=== PATIENT | female | born 1955 | race Caucasian/White ===

== ENCOUNTER → 2017-04-03 | Outpatient (CLI) | payer OTHER ==
[~2017-04-03] MED LIST: AMLO2.5T PO; ASPI81TA28 PO; ATOR-22 PO; CYCL10TA6 PO; HYG/25 PO; INSDGIPEN SC; LEVO50TA6 PO; LISI40TA PO; METF-384 PO; NAPR-1169 PO; NVLGI/PEN SQ; RXC5 PO
[2017-04-03 13:09] LABS: URINE APPEARANCE CLEAR (CLEAR); URINE BILIRUBIN NEG (NEG); URINE COLOR YELLOW; URINE EPITHELIAL CELL AUTO >30 /lpf (0-5); URINE NITRITE NEG (NEG); URINE PH 6.5 (4.5-7.5); URINE SPECIFIC GRAVITY 1.017 (1.000-1.030); UROBILINOGEN NEG (NEG)
[2017-04-03 13:13] LABS: MANUAL MICROSCOPIC REQUIRED? NO; REVIEW REQ? NO
== END | disposition home or self-care (01) ==
LOC: C.LABMFLN 07:15
PROVIDERS: ATTEND Family Medicine
DX: N30.00 Acute cystitis without hematuria (principal)

== ENCOUNTER → 2017-04-07 | Outpatient (CLI) | payer OTHER ==
[2017-04-07 14:05] LABS: ALT/SGPT 17 U/L (12-78); CHOLESTEROL 160 mg/dl (0-200); CHOLESTEROL/HDL RATIO 2.7; HDL CHOLESTEROL 60 mg/dl; TRIGLYCERIDES 136 mg/dl (0-150); VERY LOW DENSITY LIPOPROT CALC 27 mg/dl
[2017-04-08 06:21] LABS: ESTIMATED AVERAGE GLUCOSE 280 mg/dl; HA1C FLAG Normal (Normal)
== END | disposition home or self-care (01) ==
LOC: C.LABMFLN 07:05
PROVIDERS: ATTEND Family Medicine
DX: Z00.00 Encounter for general adult medical examination without abnormal findings (principal); E11.9 Type 2 diabetes mellitus without complications; E78.5 Hyperlipidemia, unspecified; I10 Essential (primary) hypertension

== ENCOUNTER 2017-04-11 08:51 | Inpatient (IN) | payer OTHER ==
[2017-03-25 14:50] VITALS: BMI 46.0
--- NOTE | 2017-03-25 15:32 | PAT Medication Instructions ---
Service Date Mar 25, 2017. Current Home Medication List Amlodipine (Norvasc), 2.5 MG PO QAM Aspirin (Aspirin Ec), 81 MG PO QAM Atorvastatin (Lipitor), 20 MG PO HS Chlorthalidone (Hygroton), 25 MG PO QAM Cyclobenzaprine Hcl (Flexeril), 10 MG PO BID PRN for Muscle Spasms Insulin Aspart (Novolog Flexpen), 35 UNITS SQ TIDM Insulin Glargine (Lantus Solostar), 30-40 UNITS SC QPM Levothyroxine Sodium (Levothyroxine Sodium), 1 TAB PO QAM Lisinopril (Zestril), 40 MG PO BID Metformin Hcl (Glucophage), 1,000 MG PO BID Naproxen (Naprosyn), 500 MG PO BID PRN for Pain Medication Instructions For Your Scheduled Surgery - Check with surgeon for instructions: Naproxen (Naprosyn), 500 MG PO BID PRN for Pain - Hold the following medications 24 hours prior to surgery: Lisinopril (Zestril), 40 MG PO BID - Hold the following medications 48 hours prior to surgery: Metformin Hcl (Glucophage), 1,000 MG PO BID - Hold the following medications the morning of surgery: Chlorthalidone (Hygroton), 25 MG PO QAM Cyclobenzaprine Hcl (Flexeril), 10 MG PO BID PRN for Muscle Spasms Insulin Aspart (Novolog Flexpen), 35 UNITS SQ TIDM - Take the following medications the morning of surgery with a sip of water: Levothyroxine Sodium (Levothyroxine Sodium), 1 TAB PO QAM Amlodipine (Norvasc), 2.5 MG PO QAM Aspirin (Aspirin Ec), 81 MG PO QAM (okay to continue per surgeon) - Take the following medications as scheduled the night before surgery: Insulin Glargine (Lantus Solostar), 30-40 UNITS SC QPM Insulin Aspart (Novolog Flexpen), 35 UNITS SQ TIDM Cyclobenzaprine Hcl (Flexeril), 10 MG PO BID PRN for Muscle Spasms (if needed) Atorvastatin (Lipitor), 20 MG PO HS If you have any questions please call us at [phone] or [phone] or [phone]
[2017-03-25 15:39] LABS: BASO % 0.7 %; BASO ABS # 0.06 K/uL (0-0.2); COMPLETE YES; EOS % 1.3 %; HEMATOCRIT 38.6 % (37-47); IG% 1.1 %; LYMPH % 23.8 %; LYMPH ABS # 2.12 K/uL (1.2-3.4); MEAN CELL VOLUME 85.8 fL (80-100); MEAN CORPUSCULAR HEMOGLOBIN 29.1 pg (25-34); MEAN CORPUSCULAR HGB CONC 33.9 g/dl (32-36); MEAN PLATELET VOLUME 11.3 fL (7.4-10.4); MONO % 5.3 %; NEUT % 67.8 %; PLATELET COUNT 279 K/uL (130-400)
--- NOTE | 2017-03-25 16:00 | DIAGNOSTIC IMAGING REPORT ---
CHEST PREADMISSION(PA/LAT) CLINICAL HISTORY: PAT preoperative evaluation COMPARISON STUDY: No previous studies for comparison. FINDINGS: The bones soft tissues and hemidiaphragms are normal. The cardiomediastinal silhouette is normal. The lungs are clear. The pulmonary vasculature is normal. IMPRESSION: Negative chest. The above report was generated using voice recognition software. It may contain grammatical, syntax or spelling errors. Electronically signed by: Nolan Herrera M.D. 03/25/2017 3:59 PM Dictated Date/Time: 03/25/2017 3:58 PM
[2017-03-25 16:19] LABS: URINE APPEARANCE CLEAR (CLEAR); URINE BILIRUBIN NEG (NEG); URINE COLOR YELLOW; URINE EPITHELIAL CELL AUTO 20-30 /lpf (0-5); URINE NITRITE NEG (NEG); URINE SPECIFIC GRAVITY 1.012 (1.000-1.030); UROBILINOGEN NEG (NEG); ZZUR CULT IF INDIC CLEAN CATCH YES
[2017-03-25 16:20] LABS: BUN/CREATININE RATIO 20.1 (10-20); CALCIUM 9.3 mg/dl (8.5-10.1); POTASSIUM 4.9 mmol/L (3.5-5.1)
[2017-03-25 16:21] LABS: MANUAL MICROSCOPIC REQUIRED? NO; REVIEW REQ? NO
[~2017-04-11] VITALS: Ht 170.2 cm; Wt 122.4 kg
[2017-04-11] VITALS (8 sets, daily range): BP systolic 129–169; BP diastolic 60–82; PULSE 84–99; TEMP 36.3–36.8; O2SAT 92–99; BMI 42.0
[~2017-04-11 08:51] MED LIST changes: +CEFAZOLIN 3000 MG/65 ML D5W 65 ML IV SCH; +LACTATED RINGER'S 1000ML 1,000 ML IV SCH; -RXC5 PO
[2017-04-11] MEDS ORDERED: ATROPINE SULFATE 0.1 MG/ML 5ML SYR IV PRN (09:45)
[2017-04-11] MEDS ORDERED: FENTANYL CITRATE INJ 50 MCG/1 ML 2 ML VIAL IV PRN (09:45)
[2017-04-11] MEDS ORDERED: HYDROmorphone INJ 1 MG/ML SYR IV PRN ×2 (09:45→15:45)
[2017-04-11] MEDS ORDERED: EpHEDrine SULFATE INJ 50 MG/ML AMP IV PRN (09:45)
[2017-04-11] MEDS ORDERED: ONDANSETRON INJ 2 MG/ML 2 ML VIAL IV PRN ×2 (09:45→15:45)
[2017-04-11] MEDS ORDERED: PROMETHAZINE HCL INJ 12.5 MG in SODIUM CHLORIDE 0.9% 50ML 50 ML IV PRN ×2 (09:45→15:45)
--- NOTE | 2017-04-11 11:54 | History & Physical Bridge Note ---
H&P Re-Evaluation Bridge Note: I have examined the patient, reviewed the History & Physical and in the interval since the performance of the History & Physical I have noted the following changes of clinical significance: No changes noted
--- NOTE | 2017-04-11 11:55 | History and Physical ---
History & Physical Date Apr 11, 2017. Chief Complaint Back and leg pain History of Present Illness The patient is a 61 year old female with complaints of back and leg pain Additional History Hepatic Disease: No Endocrine Disorder: No Kidney Disease: No Hypertension: Yes Heart Disease: No Bleeding Tendencies: No Infectious Diseases: No Allergies Coded Allergies: Codeine (Verified Allergy, Unknown, SEVERE NAUSEA, VOMITING, "ROOM SPINS" , 04/11/17) Home Medications Scheduled Amlodipine (Norvasc), 2.5 MG PO QAM Aspirin (Aspirin Ec), 81 MG PO QAM Atorvastatin (Lipitor), 20 MG PO HS Chlorthalidone (Hygroton), 25 MG PO QAM Insulin Aspart (Novolog Flexpen), 35 UNITS SQ TIDM Insulin Glargine (Lantus Solostar), 30-40 UNITS SC QPM Levothyroxine Sodium (Levothyroxine Sodium), 1 TAB PO QAM Lisinopril (Zestril), 40 MG PO BID Metformin Hcl (Glucophage), 1,000 MG PO BID Scheduled PRN Cyclobenzaprine Hcl (Flexeril), 10 MG PO BID PRN for Muscle Spasms Naproxen (Naprosyn), 500 MG PO BID PRN for Pain Physical Examination Skin: warm/dry, no rash Eyes: normal inspection, EOMI, sclerae normal ENT: normal ENT inspection, pharynx normal Head: normocephalic, atraumatic Neck: supple, no adenopathy, trachea midline Respiratory/Chest: lungs clear, normal breath sounds, no respiratory distress Cardiovascular: regular rate, rhythm, no edema, no murmur Abdomen / GI: normal bowel sounds, non tender Back: normal inspection Extremities: normal inspection, normal range of motion Neurologic/Psych: no motor/sensory deficits, alert, normal reflexes, oriented x 3 Diagnosis Lumbar spinal stenosis Plan of Treatment Lumbar decompression fusion L4 to S1
[2017-04-11] MEDS ORDERED: MIDAZOLAM HCL 1 MG/ML 2ML VIAL ONE (12:01)
[2017-04-11] MEDS ORDERED: FENTANYL CITRATE INJ 50 MCG/1 ML 2 ML VIAL ONE ×4 (12:01→16:14)
[2017-04-11] MEDS ORDERED: BUPIVACAINE/EPINEPHRINE 0.5% MPF 1:200,000 30 ML VIAL ONE (13:04)
[2017-04-11] MEDS ORDERED: BACITRACIN 50000 UNIT VIAL ONE (13:04)
[2017-04-11] MEDS ORDERED: HYDROmorphone INJ 2 MG/ML SYR/VIAL ONE (13:42)
[2017-04-11] MEDS ORDERED: ONDANSETRON INJ 2 MG/ML 2 ML VIAL ONE (13:55)
[2017-04-11] MEDS ORDERED: DEXAMETHASONE SOD INJ 4 MG/ML VIAL ONE (13:55)
[2017-04-11] MEDS ORDERED: LIDOCAINE HCL 2% 2 ML VIAL (20MG/ML) ONE (13:55)
[2017-04-11] MEDS ORDERED: PROPOFOL IV EMULSION 10 MG/ML 20 ML VIAL IV ONE (13:55)
[2017-04-11] MEDS ORDERED: EpHEDrine SULFATE 50MG/5ML SYR ONE (14:33)
[2017-04-11] MEDS ORDERED: PHENYLEPHRINE 100MCG/ML 5ML SYR ONE (14:33)
[2017-04-11] MEDS ORDERED: ESMOLOL HCL 10 MG/ML 10 ML VIAL ONE (14:52)
[2017-04-11] MEDS ORDERED: FLOSEAL HEMOSTATIC MATRIX 10ML TOP ONE (15:34)
[2017-04-11] MEDS ORDERED: SODIUM CHLORIDE 0.9% 1000ML 1,000 ML IV SCH (15:37)
--- NOTE | 2017-04-11 15:42 | DIAGNOSTIC IMAGING REPORT ---
LUMBAR SPINE, INTRAOPERATIVE FLUOROSCOPY HISTORY: L4-S1 decompression and fusion. FLUOROSCOPY TIME: 17 seconds. FINDINGS: Intraoperative fluoroscopy was provided for the lumbar spine. 2 fluoroscopic spot images were obtained. Posterior decompression and fusion from L4 through S1 with pedicle screws and rods. The hardware appears intact. IMPRESSION: Fluoroscopy provided for a L4 S1 posterior decompression and fusion. Electronically signed by: Alan Barnhart M.D. 04/11/2017 3:40 PM Dictated Date/Time: 04/11/2017 3:40 PM
[2017-04-11] MEDS ORDERED: METOCLOPRAMIDE HCL INJ 5 MG/ML 2 ML VIAL IV PRN (15:45)
[2017-04-11] MEDS ORDERED: LORAZEPAM 0.5 MG TAB PO PRN (15:45)
[2017-04-11] MEDS ORDERED: SOD PHOSPHATE/SOD BIPHOSPHATE ENEMA 132 ML BTL PR PRN (15:45)
[2017-04-11] MEDS ORDERED: NALOXONE HCL 0.4 MG/1 ML VIAL/CARP IV PRN ×2 (15:45)
[2017-04-11] MEDS ORDERED: ACETAMINOPHEN 500 MG TAB PO PRN (15:45)
[2017-04-11] MEDS ORDERED: MAGNESIUM HYDROXIDE SUSP 30 ML UDC PO PRN (15:45)
[2017-04-11] MEDS ORDERED: ACETAMINOPHEN IV 100 ML IV PRN (15:45)
[2017-04-11] MEDS ORDERED: LORAZEPAM INJ 0.5 MG in SYRINGE 0 ML IV PRN (15:45)
[2017-04-11] MEDS ORDERED: CYCLOBENZAPRINE HCL 10 MG TAB PO PRN (15:45)
[2017-04-11] MEDS ORDERED: DO NOT ADMINISTER FLU VACCINE PRN ×3 (15:45)
[2017-04-11] MEDS ORDERED: DO NOT ADMINISTER PNEUMOCOCCAL VACCINE PRN ×2 (15:45)
[2017-04-11] MEDS ORDERED: BISACODYL 10 MG SUPP PR PRN (15:45)
[2017-04-11] MEDS ORDERED: ALUMINUM/MAGNESIUM SUSP 30 ML UDC PO PRN (15:45)
[2017-04-11] MEDS ORDERED: hydrOXYzine HCL 25 MG TAB PO PRN (15:45)
[2017-04-11] MEDS ORDERED: FAMOTIDINE 20 MG TAB PO PRN (15:45)
--- NOTE | 2017-04-11 15:45 | [facility] Operative Report ---
Operative Report Operative Date Apr 11, 2017. Pre-Operative Diagnosis Lumbar Spinal Stenosis Post-Operative Diagnosis Lumbar Spinal Stenosis Procedure(s) Performed #1 lumbar decompression medial facetectomies foraminotomies L3 4 L4 5 L5-S1. #2 posterior spinal fusion L4 5 L5-S1. #3 placement posterior segmental instrumentation L4 5 L5-S1. #4 interbody fusion L4 5. #5 placement peek cage 12 x 26 mm L4 5. #6 placement of locally harvested morcellized autograft in the posterior lateral gutters. #7 placement of ostial amp in the interbody space and posterior gutters. Surgeon Medical Office Receptionist Assistant Surgeon(s) Ken Dent PA-C Estimated Blood Loss 200mL Findings Inferior spinal stenosis with herniated was pulposus L4 5 Specimens None per surgeon Description of Procedure Patient was met with preoperatively case discussed all questions are dressed with a point patient was taken back to the operative suite underwent intubation placed in a prone position the Iván table on top Eris frame. All bony prominences were well-padded eyes inspected to ensure there is no external pressure placed upon them. This point lumbar spines prepped draped nostril fashion. Sharp dissection with the assistance of Bovie cautery was performed onto an exposing the lamina and transverse processes of L4 5 and sacral alar bilaterally. From a caudal to cephalad fashion complete laminectomy of L5 L4 L3 was performed addressing severe lateral recessed foraminal disease. Pedicle screws then placed in L45 S1 levels bilaterally with assistance of fluoroscopy in the purposes shelly placed. Through a trans-foraminal approach a right a complete discectomy was performed as well as the herniated portion of the disc addressed. The end plates curetted to subcortical bleeding bone and a 12 x 26 mm peek cage tapped in position. The rods and locked and final position bilaterally. Transverse processes of L4-L5 and sacral alar burred to subcortical bleeding bone. Ostial amp and locally harvested morcellized autograft was placed and posterior gutters. 15 round MANISH drain inserted. Incision was then closed with 1 Vicryl fascia 2-0 Vicryl subcutaneous tediously 4 Monocryl for final skin closure Steri-Strip sterile dressing placed. Patient we can take PACU stable condition. Please note Donald record was present throughout the entire procedure involved in patient positioning complex portions of the surgery and final skin closure. I attest to the content of the Intraoperative Record and any orders documented therein. Any exceptions are noted below.
[2017-04-11] MEDS ORDERED: PHARMACY GLYCEMIC MGMT CONSULT PRN (15:49)
[2017-04-11] MEDS: HYDROmorphone HCL 0.5MG/ML 50 ML CASSETTE IV PRN ×3 (16:20→22:53)
[2017-04-11] MEDS ORDERED: SCOPOLAMINE 1.5 MG TDSY TD ONE (16:55)
[2017-04-11] MEDS ORDERED: NURSING VERBAL MED ORDER ONE ×2 (17:00)
[2017-04-11] MEDS ORDERED: SCOPOLAMINE 1.5 MG TDSY TD STA (17:07)
--- NOTE | 2017-04-11 17:19 | Anesthesiology Progress Note ---
Anesthesia Post Op Note Date & Time Apr 11, 2017 at 17:19 Vital Signs Pain Intensity: 4 Vital Signs Past 12 Hours Date Time Temp Pulse Resp B/P (MAP) Pulse Ox O2 Delivery O2 Flow Rate FiO2 04/11/17 17:10 36.6 75 12 125/65 98 Nasal Cannula 4 04/11/17 17:00 72 14 133/60 98 Nasal Cannula 4 04/11/17 16:50 77 10 104/69 99 Nasal Cannula 4 04/11/17 16:40 73 13 160/52 99 Nasal Cannula 4 04/11/17 16:30 107 21 92/65 98 Nasal Cannula 4 04/11/17 16:20 117 23 115/97 99 Nasal Cannula 4 04/11/17 16:10 92 15 182/72 99 Nasal Cannula 4 04/11/17 16:01 37.0 94 12 198/86 92 Oxymask 10 04/11/17 09:28 36.3 90 16 169/82 97 Room Air Notes Mental Status: alert / awake / arousable, participated in evaluation Pt Amnestic to Procedure: Yes Nausea / Vomiting: adequately controlled Pain: adequately controlled Airway Patency, RR, SpO2: stable & adequate BP & HR: stable & adequate Hydration State: stable & adequate Anesthetic Complications: no major complications apparent Pt doing better with n/v after zofran, phenergan, reglan and scopolamine patch. VSS
[2017-04-11] MEDS ORDERED: GLUCAGON FOR INJ 1 MG VIAL SQ PRN (17:30)
[2017-04-11] MEDS ORDERED: DEXTROSE 50% 50 ML SYR IV PRN (17:30)
[2017-04-11] MEDS ORDERED: GLUCOSE 40% GEL 15 GM TUBE PO PRN (17:30)
[2017-04-11] MEDS ORDERED: GLUCOSE 10 TABS/TUBE PO PRN (17:30)
[2017-04-11] MEDS ORDERED: INSULIN GLARGINE SOLOSTAR 100 UNITS/ML 3 ML PEN SC ONE (18:00)
[2017-04-11] MEDS: SODIUM CHLORIDE 0.9% 1000ML 1,000 ML IV SCH ×2 (19:02→21:39)
[2017-04-11] MEDS: DEXAMETHASONE INJ 6 MG in SYRINGE 0 ML IV SCH (19:03)
[2017-04-11] MEDS: CEFAZOLIN IV 2,000 MG in DEXTROSE 5% 50ML 50 ML IV SCH (19:03)
--- NOTE | 2017-04-11 19:46 | Medical Consult ---
Consultation Date of Consultation: Apr 11, 2017. Attending Physician: Piter Montalvo D.O. Reason for Consultation: Post-op medical management History of Present Illness 61 y/o F Hx IDDM, HTN, HPL, lumbar stenosis, hypothyroidism, morbid obesity. The pt is post L4-S1 post decompression, L4-5 fusion. No significant intraoperative complications were reported. Pt is recovering - denies CP, SOB, N/V, light headedness. Pt is tolerating PO. Past Medical/Surgical History 1) IDDM 2) HTN 3) HPL 4) Lumbar stenosis 5) Hypothyroidism Family History Father - lung CA Mother - "heart problems" Social History Smoking Status: Never Smoker Allergies Coded Allergies: Codeine (Verified Allergy, Unknown, SEVERE NAUSEA, VOMITING, "ROOM SPINS" , 04/11/17) Current Inpatient Medications Current Inpatient Medications Medications (Trade) Dose Ordered Sig/Tenzin Route Start Time Stop Time Status Last Admin Dose Admin Lactated Ringer's 1,000 ml @ 15 mls/hr Q24H IV 04/11/17 06:00 04/12/17 05:59 04/11/17 09:59 15 MLS/HR Dexamethasone Sodium Phosphate 6 mg/Syringe 1.5 ml @ 1 mls/min Q8H IV 04/11/17 18:00 04/12/17 10:02 04/11/17 19:03 1 MLS/MIN Promethazine HCl 12.5 mg/Sodium Chloride 50.5 ml @ 202 mls/hr Q6H PRN IV 04/11/17 15:45 05/11/17 15:44 04/11/17 16:23 202 MLS/HR Ondansetron HCl (Zofran Inj) 4 mg Q6H PRN IV 04/11/17 15:45 05/11/17 15:44 Metoclopramide HCl (Reglan Inj) 10 mg Q6H PRN IV 04/11/17 15:45 05/11/17 15:44 04/11/17 16:56 10 MG Lorazepam (Ativan Tab) 0.5 mg Q8H PRN PO 04/11/17 15:45 05/11/17 15:44 Lorazepam 0.5 mg/ Syringe 0.25 ml @ 1 mls/min Q8H PRN IV 04/11/17 15:45 05/11/17 15:44 Pneumococcal Polysaccharide Vaccine 1 ea PRN PRN N/A 04/11/17 15:45 05/11/17 15:44 Influenza Virus Vacc Triv Types A&B 1 ea PRN PRN N/A 04/11/17 15:45 05/11/17 15:44 Polyethylene (Miralax Powder Packet) 17 gm Q6 PO 04/13/17 06:00 05/13/17 05:59 Bisacodyl (Dulcolax Supp) 10 mg DAILY PRN MS 04/11/17 15:45 05/11/17 15:44 Magnesium Hydroxide (Milk Of Magnesia Susp) 30 ml DAILY PRN PO 04/11/17 15:45 05/11/17 15:44 Hydromorphone HCl (Dilaudid Inj) 0.5-1mg prn moder... Q3H PRN IV 04/11/17 15:45 04/25/17 15:44 Oxycodone HCl (Roxicodone Immediate Rel Tab) 5-10mg prn moderate to sev... Q4H PRN PO 04/12/17 06:00 04/26/17 05:59 Cefazolin Sodium 2000 mg/Dextrose 60 ml @ 100 mls/hr Q8H IV 04/11/17 18:00 04/12/17 02:35 04/11/17 19:03 100 MLS/HR Sodium Chloride 1,000 ml @ 150 mls/hr Q6H40M IV 04/11/17 15:37 05/11/17 15:36 04/11/17 19:02 150 MLS/HR Acetaminophen (Tylenol Tab) 1,000 mg Q8H PRN PO 04/11/17 15:45 05/11/17 15:44 Acetaminophen 100 ml @ 400 mls/hr Q8H PRN IV 04/11/17 15:45 05/11/17 15:44 Naloxone HCl (Narcan Inj) 0.1 mg Q5M PRN IV 04/11/17 15:45 05/11/17 15:44 Senna/Docusate Sodium (Senokot S Tab) 2 tab HS PO 04/11/17 21:00 05/11/17 20:59 Sodium Biphosphate/ Sodium Phosphate (Fleet Enema) 132 ml ONE PRN MS 04/11/17 15:45 05/11/17 15:44 Hydroxyzine HCl (Vistaril Tab) 25 mg Q8H PRN PO 04/11/17 15:45 05/11/17 15:44 Al Hydroxide/Mg Hydroxide (Maalox Susp) 30 ml Q6H PRN PO 04/11/17 15:45 05/11/17 15:44 Famotidine (Pepcid Tab) 20 mg Q12 PRN PO 04/11/17 15:45 05/11/17 15:44 Diphenhydramine HCl (Benadryl Cap) 25 mg Q6H PRN PO 04/11/17 15:45 05/11/17 15:44 Miscellaneous Information (Discontinue RIDING TEACHER) 1 ea ONE ONCE N/A 04/12/17 06:00 04/12/17 06:01 Naloxone HCl (Narcan Inj) 0.1 mg Q5M PRN IV 04/11/17 15:45 04/12/17 06:00 Hydromorphone HCl (Dilaudid Clinical Medical Assistant) 25 mg PRN PRN IV 04/11/17 15:45 04/12/17 06:00 04/11/17 17:35 25 MG Sodium Chloride 1,000 ml @ 15 mls/hr Q24H IV 04/11/17 15:37 04/12/17 06:00 Amlodipine Besylate (Norvasc Tab) 2.5 mg QAM PO 04/12/17 09:00 05/12/17 08:59 Aspirin (Ecotrin Tab) 81 mg QAM PO 04/12/17 09:00 05/12/17 08:59 Atorvastatin Calcium (Lipitor Tab) 20 mg HS PO 04/11/17 21:00 05/11/17 20:59 Chlorthalidone (Hygroton Tab) 25 mg QAM PO 04/12/17 09:00 05/12/17 08:59 Cyclobenzaprine HCl (Flexeril Tab) 10 mg BID PRN PO 04/11/17 15:45 05/11/17 15:44 Insulin Aspart (novoLOG ASPART) SLIDING SCALE ACHS SQ 04/11/17 17:15 05/11/17 17:14 Insulin Glargine (Lantus Solostar Pen) SEE PROTOCOL TEXT BID SC 04/12/17 09:00 05/12/17 08:59 Levothyroxine Sodium (Synthroid Tab) 50 mcg DAILYBB PO 04/12/17 06:00 05/12/17 05:59 Lisinopril (Zestril Tab) 40 mg BID PO 04/11/17 21:00 05/11/17 20:59 Miscellaneous Information (Consult Glycemic Management Pharmacy) 1 ea UD PRN N/A 04/11/17 15:49 05/11/17 15:48 Miscellaneous (Remove Transderm-Scop Patch) 1 ea Q48H N/A 04/13/17 17:15 04/13/17 17:16 Miscellaneous Information (Check Scopolamine Patch Placement) 1 ea QS N/A 04/12/17 00:00 05/12/17 00:00 Glucose (Glucose 40% Gel) 15-30 GRAMS 15 GRAMS... UD PRN PO 04/11/17 17:30 05/11/17 17:29 Glucose (Glucose Chew Tab) 4-8 Tablets 4 Tabl... UD PRN PO 04/11/17 17:30 05/11/17 17:29 Dextrose (Dextrose 50% 50ML Syringe) 25-50ML OF 50% DW IV FOR... UD PRN IV 04/11/17 17:30 05/11/17 17:29 Glucagon (Glucagon Inj) 1 mg UD PRN SQ 04/11/17 17:30 05/11/17 17:29 Insulin Aspart (novoLOG ASPART) SLIDING SCALE TODAY@0000,0400 SQ 04/12/17 00:00 04/12/17 04:01 Review of Systems Constitutional: No fever, No chills, No sweats Eyes: No worsening of vision ENT: No hearing loss, No unusual epistaxis, No nasal symptoms Respiratory: No cough, No sputum, No wheezing Cardiovascular: No chest pain, No orthopnea, No PND Abdomen: No pain, No nausea, No vomiting Musculoskeletal: No joint pain, No muscle pain Genitourinary - Female: No dysuria, No urinary frequency, No urinary urgency Neurologic: + weakness, No memory loss, No paralysis Psychiatric: No depression symptoms Endocrine: No fatigue Hematologic / Lymphatic: No abnormal bleeding/bruising Integumentary: No rash Physical Exam Date Time Temp Pulse Resp B/P (MAP) Pulse Ox O2 Delivery O2 Flow Rate FiO2 04/11/17 18:30 36.3 99 18 134/70 (91) 99 Nasal Cannula 2.0 04/11/17 17:20 68 14 135/66 100 Nasal Cannula 4 04/11/17 17:10 36.6 75 12 125/65 98 Nasal Cannula 4 04/11/17 17:00 72 14 133/60 98 Nasal Cannula 4 04/11/17 16:50 77 10 104/69 99 Nasal Cannula 4 04/11/17 16:40 73 13 160/52 99 Nasal Cannula 4 04/11/17 16:30 107 21 92/65 98 Nasal Cannula 4 04/11/17 16:20 117 23 115/97 99 Nasal Cannula 4 04/11/17 16:10 92 15 182/72 99 Nasal Cannula 4 04/11/17 16:01 37.0 94 12 198/86 92 Oxymask 10 04/11/17 09:28 36.3 90 16 169/82 97 Room Air General Appearance: WD/WN, no apparent distress Head: normocephalic Eyes: normal inspection ENT: normal ENT inspection, pharynx normal Neck: supple, no JVD Respiratory/Chest: chest non-tender, lungs clear, normal breath sounds Cardiovascular: regular rate, rhythm, no edema, no gallop Abdomen/GI: normal bowel sounds, non tender, soft Back: + pertinent finding (Palpation avoided) Extremities/Musculoskelatal: normal inspection, no calf tenderness, normal capillary refill Neurologic/Psych: retort pre cooker II-XII nml as tested, no motor/sensory deficits, alert, normal mood/affect, normal reflexes, oriented x 3 Skin: normal color, warm/dry, no rash Laboratory Results Last 24 Hours Test 04/11/17 09:22 04/11/17 16:09 Bedside Glucose 169 mg/dl 142 mg/dl Assessment & Plan 61 y/o F Hx IDDM, HTN, HPL, lumbar stenosis, hypothyroidism, morbid obesity. The pt is post L4-S1 post decompression, L4-5 fusion. No significant intraoperative complications were reported. Pt is recovering - denies CP, SOB, N/V, light headedness. Pt is tolerating PO. 1) Post -op - all meds have been restarted - this is acceptable although we would review her AM BMP prior to administration of her diuretic and LILIANA. Pain is relatively well controlled and she is tolerating PO. PT/OT - commencement of anticoagulation to discretion of orthopedics. 2) DM - she is appropriately on an insulin sliding scale 3) HPL - cont Statin Tx 4) Hypothyroid - cont Synthroid 5) HTN - as above - should resume Norvasc - hold LILIANA and Chlorthalidone pending AM labs 6) Reg her obesity - she may need CPAP if ther is any desaturation observed overnight. Total time for this admit including review of previous labs, records - discussion with pt and review of ortho reprts - 30 min
--- NOTE | 2017-04-11 19:54 | Pharmacy Progress Note ---
Glycemic Control Intl Consult Date of Service Apr 11, 2017. Scope Glycemic Pharmacist consulted by Dr Montalvo on 04/11/17 for glycemic control and to write orders per [facility] inpatient glycemic control protocol Objective Weight (Kilograms): 122.400 Accuchecks BSG (last 24hrs): Test 04/11/17 09:22 04/11/17 16:09 Bedside Glucose 169 mg/dl (70-90) 142 mg/dl (70-90) HbA1c 11.4% on 04/07/17 Recent Pertinent Medications Outpatient Anti-diabetic Regimen: * Lantus 30-40 units SQ HS --> rjust increased to BID per * NovoLog 35 units SQ TIDM * Total daily insulin dose = ~ 145 - 175 units/day * Metformin 1,000mg PO BIDM Risk Factors for Insulin Resistance: * Steroid * Recent Surgery * Diet Assessment & Plan ASSESSMENT: * 61yo T2DM female with poor outpatient control per recent A1c. Basal insulin just increased to BID per . * Pt is maintained on SQ basal bolus + metformin as an outpatient with ~ 145- 175units/day * Pt received DXM 12mg IV intraop and is ordered DXM 6mg IV Q8hrs x 3. This is cause severe, longstanding, steroid induced hyperglycemia. * Will stress outpatient dosing and titrate based on BSG trends & steroid taper. * ADA & AACE recommend a goal blood sugar range 140-180 mg/dl for the majority of critically ill & non-critically ill patients. However, more stringent targets may be selected in individual cases. Will utilize more stringent goal of 110-140mg/dl based on patient age & comorbidities. Additionally, tighter glycemic control is warranted to facilitate wound/infection healing. PLAN FOR INPATIENT GLYCEMIC CONTROL: * Hold outpatient oral diabetes medications * Will resume POD#2 * Basal insulin * Lantus 80units SQ x 1 dose tonight, then, * Lantus SQ BID dosing based on degree of hyperglycemia: * BSG < 140 = 30 units * BSG 140-180 = 40 units * BSG 181+ = 50 units * Bolus insulin * NovoLog per scale ACHS or Q6hrs while NPO. Additional checks/coverage at 0000 & 0400 tonight for RTC dosing of steroids * Goal Range: Low 110 mg/dL - High 140 mg/dL * Correction Factor: 5 mg/dL/unit * Nutritional / Prandial insulin per carb ratio of 1 unit per 2 grams CHO consumed * Please note that the plan above was derived based on current level of insulin resistance and hospital stress. These recommendations are appropriate for inpatient admission only. Plan of care upon discharge will need to be reassessed to avoid potential outpatient hypo/hyperglycemia. Thank you.
[2017-04-11] MEDS: INSULIN ASPART 100 UNITS/ML 3 ML PEN SQ SCH (21:37)
[2017-04-11] MEDS: ATORVASTATIN 20 MG TAB PO SCH (21:38)
[2017-04-11] MEDS: LISINOPRIL 40 MG TAB PO SCH (21:38)
[2017-04-11] MEDS: DOCUSATE SODIUM/SENNA 50/8.6MG TAB PO SCH (21:39)
[2017-04-12] MEDS: CHECK SCOPOLAMINE PATCH PLACEMENT SCH ×3 (00:01→15:48)
[2017-04-12] MEDS: INSULIN ASPART 100 UNITS/ML 3 ML PEN SQ SCH ×5 (00:10→20:26)
[2017-04-12] MEDS: CEFAZOLIN IV 2,000 MG in DEXTROSE 5% 50ML 50 ML IV SCH (02:07)
[2017-04-12] MEDS: DEXAMETHASONE INJ 6 MG in SYRINGE 0 ML IV SCH ×2 (02:07→09:37)
[2017-04-12 03:40] VITALS: BP 130/79; PULSE 99; TEMP 36.7; O2SAT 95
[2017-04-12] MEDS: SODIUM CHLORIDE 0.9% 1000ML 1,000 ML IV SCH (04:01)
[2017-04-12 05:53] LABS: COMPLETE YES; HEMATOCRIT 33.6 % (37-47); IG% 0.3 %; LYMPH % 3.7 %; LYMPH ABS # 0.45 K/uL (1.2-3.4); MEAN CELL VOLUME 85.3 fL (80-100); MEAN CORPUSCULAR HEMOGLOBIN 28.9 pg (25-34); MEAN CORPUSCULAR HGB CONC 33.9 g/dl (32-36); MONO % 2.1 %; NEUT % 93.9 %; PLATELET COUNT 219 K/uL (130-400); RED BLOOD COUNT 3.94 M/uL (4.2-5.4); WHITE BLOOD COUNT 12.12 K/uL (4.8-10.8)
[2017-04-12] MEDS ORDERED: DC PCA ONE (06:00)
[2017-04-12 06:16] LABS: BUN/CREATININE RATIO 17.2 (10-20); CALCIUM 8.5 mg/dl (8.5-10.1); CREATININE 1.1 mg/dl (0.60-1.20); POTASSIUM 4.5 mmol/L (3.5-5.1)
[2017-04-12] MEDS: LEVOTHYROXINE 50 MCG TAB PO SCH (06:26)
[2017-04-12] MEDS ORDERED: NURSING VERBAL MED ORDER ONE (06:30)
[2017-04-12 07:20] VITALS: BP 127/76; PULSE 97; TEMP 37; O2SAT 90
[2017-04-12] MEDS: OXYCODONE HCL IR 5 MG TAB (IMMEDIATE RELEASE) PO PRN ×3 (07:26→20:04)
[2017-04-12] MEDS: LISINOPRIL 40 MG TAB PO SCH ×2 (07:26→20:08)
[2017-04-12] MEDS: ASPIRIN 81 MG ECTAB PO SCH (07:27)
[2017-04-12] MEDS: AMLODIPINE BESYLATE 5 MG TAB PO SCH (07:27)
[2017-04-12] MEDS: CHLORTHALIDONE 25 MG TAB PO SCH (07:27)
[2017-04-12] MEDS ORDERED: RXC5 PO (08:42)
--- NOTE | 2017-04-12 08:43 | Discharge Instructions ---
Discharge Instructions Date of Service Apr 12, 2017. Admission Reason for Admission: Lumbar Spinal Stenosis Discharge Discharge Diagnosis / Problem: stenosis Discharge Goals Goal(s): Improve function Activity Recommendations Activity Limitations: per Instructions/Follow-up section . Instructions / Follow-Up Instructions / Follow-Up ACTIVITY RECOMMENDATIONS: SELF CARE INSTRUCTIONS AFTER THORACIC/LUMBAR FUSIONS 1. You may walk to your tolerance. It is good exercise for your legs and back. Expect some back and intermittent leg aches and pains. 2. You may perform "counter-top" level activities (make a sandwich, sarkis with a project, etc.). 3. No bending or lifting of more than 10 pounds or back twisting of any nature (roll like a log when turning in bed). 4. You may ride in a car for 20-30 minutes at a time. No driving until after your first visit with your doctor. 5. Frequent changes of position and restricting sitting to 30 minutes at a time will help limit the amount of back spasms and stiffness you may experience. 6. You may discontinue the use of ambulatory aids (cane, crutches, etc.) once your strength and confidence allow. 7. You may wind site manager the shower and let water strike your incision when you arrive home at least once daily. Do not take a tub bath, sit in a hot tub or go into a swimming pool until after your first recheck in the office. SPECIAL CARE INSTRUCTIONS: VERY IMPORTANT TO READ AND REVIEW A. Your surgical incision has been closed with a cosmetic suture under the skin that will dissolve in about 6 weeks. In 14 days, you can use a pair of clean scissors and cut the suture that is left outside of the skin at the ends of your incision. 1. The small skin tapes can be removed 7 days after surgery if they have not fallen off by that point. 2. You may keep the wound open to air as much as possible to promote healing after post-op day number 5 unless told otherwise by your doctor. 3. If you think the wound looks like it is becoming infected (redness or worsening drainage) and/or you are experiencing fever, chill or worsening back pain and muscle spasms, contact the office so that we may evaluate you as soon as possible. B. Complications are uncommon, but please contact us if you have any signs or symptoms of: 1. wound infection (fever higher than 102.5 degrees F, redness, separation of wound, drainage, or increasing pain from the incision) 2. blood clots in legs (pain, swelling, redness and warmth in legs) 3. urinary tract infection (fever higher than 102.5 degrees F, burning upon urination or increased frequency of urination) 4. nerve problems (inability to walk on your toes or heels, numbness, loss of bowel or bladder control) 5. any other symptoms that concern you C. Please call the office at if you have any concerns or questions about your operation or recovery. D. No smoking! Smoking drastically decreases the chance of a solid fusion. E. Do not take any anti-inflammatory medications (Indocin, Advil, Motrin, Aspirin, Naprosyn, etc.) as these may inhibit the chance of a solid fusion. Tylenol is okay to take for pain. MANAGING PAIN AFTER SPINAL SURGERY 1. Narcotic medication is intended for short-term use and will be provided for surgical pain. Surgical pain usually lasts for a period of 4-6 weeks. Narcotic medication includes Percocet, Vicodin, Darvocet, Tylenol #3 or Lortab. 2. Longer-term pain is more appropriately treated with non-narcotic medication such as Tylenol ES. 3. Muscle spasm is not appropriately treated with narcotics. Muscle relaxers such as Soma, Flexeril or Skelaxin can be used along with Tylenol ES. 4. Remember that we all live with some "aches and pains". This is not unusual or uncommon after an injury or as we get older. a. Back pain is expected and may include muscle spasms for 4 to 6 weeks after surgery. The pain should gradually improve. If the pain worsens for no apparent reason, please contact the office. b. Intermittent leg pain may also be experienced and should not be concerned about unless it worsens for no apparent reason. If so, please contact the office. 5. We will provide appropriate medication within the normal guidelines of their prescribed use. We will also be very cautious and aware of potential abuse and extended duration of patients' medication needs. a. Pain medications are for your comfort and to assist with sleep and rest so that the tissue can heal. They are not provided in order to return to normal activity and should not be used through the day. To do so or worsening pain at night can result from ongoing tissue damage and development of tolerance to the prescribed medicine. 6. Please allow 2-3 days to process refills. Prescriptions will not be mailed but must be picked up at the office. FOLLOW UP VISIT: Keep your scheduled follow-up appointment. Any questions, please call the office at . Current Hospital Diet Patient's current hospital diet: Diabetes Type 2 Diet Discharge Diet Recommended Diet: Regular Diet Procedures Procedures Performed: #1 lumbar decompression medial facetectomies foraminotomies L3 4 L4 5 L5-S1. #2 posterior spinal fusion L4 5 L5-S1. #3 placement posterior segmental instrumentation L4 5 L5-S1. #4 interbody fusion L4 5. #5 placement peek cage 12 x 26 mm L4 5. #6 placement of locally harvested morcellized autograft in the posterior lateral gutters. #7 placement of ostial amp in the interbody space and posterior gutters. Pending Studies Studies pending at discharge: no Laboratory Results Hemoglobin A1c Test 04/07/17 07:08 Range/Units Estimated Average Glucose 280 mg/dl Hemoglobin A1c 11.4 H 4.5-5.6 % Lipid Panel Test 04/07/17 07:08 Range/Units Triglycerides Level 136 0-150 mg/dl Cholesterol Level 160 0-200 mg/dl HDL Cholesterol 60 mg/dl LDL Cholesterol Direct 84 mg/dl Cholesterol/HDL Ratio 2.7 LDL Cholesterol, Calculated mg/dl Medical Emergencies . Who to Call and When: Medical Emergencies: If at any time you feel your situation is an emergency, please call 911 immediately. . Non-Emergent Contact Non-Emergency issues call your: Primary Care Provider . "Provider Documentation" section prepared by Piter Montalvo. . VTE Core Measure Inpt VTE Proph given/why not?: Christopher Ibrahim, SCD's
[2017-04-12] MEDS ORDERED: INSULIN GLARGINE SOLOSTAR 100 UNITS/ML 3 ML PEN SC SCH ×4 (09:00→21:00)
--- NOTE | 2017-04-12 09:20 | Progress Note ---
Progress Note Date of Service Apr 12, 2017. Progress Note Back pain is controlled. Leg pain markedly improved. Vital signs stable. MANISH drain decreasing appropriately. Exam patient is in chair at bedside demonstrates good strength testing appears comfortable. Assessment status post lumbar decompression fusion replant this time we'll initiate physical therapy advance her bowel regiment anticipate home Friday.
--- NOTE | 2017-04-12 09:29 | Hospitalist Progress Note ---
Hospitalist Progress Note Date of Service Apr 12, 2017. Subjective Pt evaluation today including: conversation w/ patient PO Intake: tolerating diet today Voiding: culp catheter in place Feeling very well now that she is out in a chair, pain controlled, no N/V, no CP or SOB, no headache, has not moved her bowels. All Other Systems: Reviewed and Negative Objective Vital Signs Date Time Temp Pulse Resp B/P (MAP) Pulse Ox O2 Delivery O2 Flow Rate FiO2 04/12/17 07:30 Room Air 04/12/17 07:20 37.0 97 18 127/76 (93) 90 Room Air 04/12/17 03:40 36.7 99 16 130/79 (96) 95 Nasal Cannula 2.0 04/12/17 00:19 Nasal Cannula 4.0 04/11/17 23:20 36.4 98 18 144/76 (98) 98 Nasal Cannula 4.0 04/11/17 21:41 36.8 93 16 129/73 (91) 93 2.0 04/11/17 20:29 84 16 141/79 (99) 92 Room Air 04/11/17 19:32 36.4 87 15 139/60 (86) 98 Nasal Cannula 2.0 04/11/17 18:30 36.3 99 18 134/70 (91) 99 Nasal Cannula 2.0 04/11/17 18:00 36.5 86 16 141/78 (99) 98 Nasal Cannula 4.0 04/11/17 17:30 96 Nasal Cannula 4.0 04/11/17 17:30 86 16 156/65 (95) 96 Nasal Cannula 4.0 04/11/17 17:30 96 Nasal Cannula 4.0 04/11/17 17:20 68 14 135/66 100 Nasal Cannula 4 04/11/17 17:10 36.6 75 12 125/65 98 Nasal Cannula 4 04/11/17 17:00 72 14 133/60 98 Nasal Cannula 4 04/11/17 16:50 77 10 104/69 99 Nasal Cannula 4 04/11/17 16:40 73 13 160/52 99 Nasal Cannula 4 04/11/17 16:30 107 21 92/65 98 Nasal Cannula 4 04/11/17 16:20 117 23 115/97 99 Nasal Cannula 4 04/11/17 16:10 92 15 182/72 99 Nasal Cannula 4 04/11/17 16:01 37.0 94 12 198/86 92 Oxymask 10 04/11/17 09:28 36.3 90 16 169/82 97 Room Air Physical Exam General Appearance: WD/WN, no apparent distress Eyes: normal inspection, sclerae normal ENT: hearing grossly normal Neck: trachea midline Respiratory/Chest: lungs clear, normal breath sounds, no respiratory distress, no accessory muscle use Cardiovascular: no edema, no gallop, no murmur, + tachycardia (very mild, regular) Abdomen: normal bowel sounds Extremities: non-tender, normal inspection, no pedal edema, no calf tenderness Neurologic/Psychiatric: alert, normal mood/affect, oriented x 3 Skin: normal color, warm/dry, + rash (scattered petechiae on right forearm and hand with subtle vertical liner sandhu of petechiae right upper arm consistent with BP cuff compression), + pertinent finding (MANISH drain coming from back with bloody drainage) Laboratory Results Last 24 Hours Test 04/11/17 09:22 04/11/17 16:09 04/11/17 20:28 04/12/17 00:00 Bedside Glucose 169 mg/dl 142 mg/dl 235 mg/dl 266 mg/dl Test 04/12/17 03:42 04/12/17 04:59 04/12/17 07:50 Bedside Glucose 287 mg/dl 227 mg/dl White Blood Count 12.12 K/uL Red Blood Count 3.94 M/uL Hemoglobin 11.4 g/dL Hematocrit 33.6 % Mean Corpuscular Volume 85.3 fL Mean Corpuscular Hemoglobin 28.9 pg Mean Corpuscular Hemoglobin Concent 33.9 g/dl Platelet Count 219 K/uL Mean Platelet Volume 11.0 fL Neutrophils (%) (Auto) 93.9 % Lymphocytes (%) (Auto) 3.7 % Monocytes (%) (Auto) 2.1 % Eosinophils (%) (Auto) 0.0 % Basophils (%) (Auto) 0.0 % Neutrophils # (Auto) 11.37 K/uL Lymphocytes # (Auto) 0.45 K/uL Monocytes # (Auto) 0.26 K/uL Eosinophils # (Auto) 0.00 K/uL Basophils # (Auto) 0.00 K/uL RDW Standard Deviation 39.5 fL RDW Coefficient of Variation 12.5 % Immature Granulocyte % (Auto) 0.3 % Immature Granulocyte # (Auto) 0.04 K/uL Sodium Level 138 mmol/L Potassium Level 4.5 mmol/L Chloride Level 105 mmol/L Carbon Dioxide Level 25 mmol/L Anion Gap 8.0 mmol/L Blood Urea Nitrogen 19 mg/dl Creatinine 1.10 mg/dl Est Creatinine Clear Calc Drug Dose 72.9 ml/min Estimated GFR () 62.8 Estimated GFR (Non- 54.1 BUN/Creatinine Ratio 17.2 Random Glucose 237 mg/dl Calcium Level 8.5 mg/dl Assessment and Plan 61 y/o F Hx IDDM, HTN, HPL, lumbar stenosis, hypothyroidism, morbid obesity. The pt is post L4-S1 post decompression, L4-5 fusion. No significant intraoperative complications were reported. 1) S/P Lumbar decompression and fusion- doing well Post -op - Pain control, PT/OT, post-op care as per Ortho Spine primary team -plan for discharge to home on Friday 2) DMII -severely uncontrolled, HgbA1C 11.4% on 04/07/17. Home meds include Lantus 30-40 units daily, Novolog 35 units qac. 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
[2017-04-12] MEDS ORDERED: KETOROLAC TROMETHAMINE 30 MG/ML VIAL IV PRN (09:30)
--- NOTE | 2017-04-12 10:06 | Pharmacy Progress Note ---
Glycemic Control Progress Note Date of Service Apr 12, 2017. Scope Glycemic Pharmacist consulted for glycemic control to write orders per [facility] inpatient glycemic control protocol. Objective Accuchecks BSG (last 24hrs): Test 04/11/17 16:09 04/11/17 20:28 04/12/17 00:00 04/12/17 03:42 Bedside Glucose 142 mg/dl (70-90) 235 mg/dl (70-90) 266 mg/dl (70-90) 287 mg/dl (70-90) Test 04/12/17 04:59 04/12/17 07:50 Random Glucose 237 mg/dl (70-99) Bedside Glucose 227 mg/dl (70-90) HbA1c: 11.4% 04/07/17 Recent Pertinent Medications The patient is currently receiving: * Basal insulin: Lantus every 12 hours: 30 units if BSG below 140; 40 units if BSG 140-180; 50 units if BSG above 180 * Correctional Insulin: Novolog Correction per scale ACHS Goal Range: Low 110 mg/dL - High 140 mg/dL Correction Factor: 5 mg/dL/unit * Prandial insulin: Per carb ratio of 1 unit per 2 grams CHO consumed * Oral Agents: Metformin 1gm PO BID to begin on 04/13/17 Outpatient Anti-Diabetic Meds Lantus 30-40 units SQ HS --> recently increased to BID per NovoLog 35 units SQ TIDM Total daily insulin dose = ~ 145 units/day Metformin 1,000mg PO BIDM Assessment & Plan ASSESSMENT: 04/12/17 * BSGs did peak at 287 overnight despite an aggressive basal/bolus regimen * Fasting BSG 227 this AM with 80 units of Lantus on board. He did receive an additional 50 units this AM (130 basal total at this time) * Last dose of dexamethasone IV given this AM at ~1000; would expect increase insulin resistance for ~36-48 hrs after last dose * Novolog CF and CR are appropriately aggressive, however given baseline level of insulin resistance combined w/ high dose steroids I may need to increase doses of each. Will follow post-prandial BSG pattern today and adjust PRN PLAN FOR INPATIENT GLYCEMIC CONTROL: * Continuing Lantus SQ BID; 30 units if BSG less than 140, 40 units if BSG 140- 180; 50 units if BSG above 180 * Continuing correction factor of 5 mg/dl/unit * Continuing carb ratio of 1 unit per 2 grams CHO consumed * Continuing goal range of Low 110 mg/dL - High 140 mg/dL * Restart metformin tomorrow AM if renal fxn and diet permit * Please note that the plan above was derived based on current level of insulin resistance and hospital stress. These recommendations are appropriate for inpatient admission only. Plan of care upon discharge will need to be reassessed to avoid potential outpatient hypo/hyperglycemia. Thank you.
[2017-04-12] MEDS ORDERED: INSULIN IV INFUSION PROTOCOL SCH (13:20)
[2017-04-12] MEDS ORDERED: MODERATE STRESS LEVEL ONE (13:30)
[2017-04-12] MEDS ORDERED: INSULIN PROTOCOL GOAL RANGE ONE (13:30)
[2017-04-12] MEDS ORDERED: INSULIN HUMAN REGULAR IV BOLUS 3 UNIT in SYRINGE 0 ML IV ONE (14:00)
[2017-04-12] MEDS: INSULIN REGULAR 250 UNITS in SODIUM CHLORIDE 0.9% 250ML 250 ML IV SCH ×2 (14:19→15:58)
[2017-04-12 14:56] VITALS: BP 139/73; PULSE 89; TEMP 37.3; O2SAT 97
[2017-04-12] MEDS ORDERED: INSULIN ASPART 100 UNITS/ML 3 ML PEN SQ SCH (17:45)
[2017-04-12] MEDS ORDERED: INSULIN ASPART 100 UNITS/ML 3 ML PEN SC SCH (18:15)
[2017-04-12] MEDS: ATORVASTATIN 20 MG TAB PO SCH (20:05)
[2017-04-12] MEDS: DOCUSATE SODIUM/SENNA 50/8.6MG TAB PO SCH (20:05)
[2017-04-12 20:06] VITALS: BP 123/73; PULSE 76
[2017-04-12 23:00] VITALS: BP 113/67; PULSE 88; TEMP 37.1; O2SAT 94
[2017-04-13] MEDS: INSULIN ASPART 100 UNITS/ML 3 ML PEN SQ SCH ×6 (04:00→20:58)
[2017-04-13] MEDS: OXYCODONE HCL IR 5 MG TAB (IMMEDIATE RELEASE) PO PRN ×5 (04:03→23:48)
[2017-04-13] MEDS: POLYETHYLENE (MIRALAX) 17 GM PACK PO SCH ×4 (05:13→23:49)
[2017-04-13] MEDS: LEVOTHYROXINE 50 MCG TAB PO SCH (05:14)
[2017-04-13 05:44] LABS: BASO % 0.1 %; BASO ABS # 0.01 K/uL (0-0.2); COMPLETE YES; EOS % 0.2 %; HEMATOCRIT 32.6 % (37-47); IG% 0.5 %; LYMPH % 13.3 %; LYMPH ABS # 2.25 K/uL (1.2-3.4); MEAN CELL VOLUME 86.9 fL (80-100); MEAN CORPUSCULAR HEMOGLOBIN 29.6 pg (25-34); MEAN PLATELET VOLUME 10.9 fL (7.4-10.4); MONO % 7.3 %; NEUT % 78.6 %; PLATELET COUNT 264 K/uL (130-400); RED BLOOD COUNT 3.75 M/uL (4.2-5.4)
[2017-04-13 06:09] LABS: BUN/CREATININE RATIO 26.5 (10-20); CALCIUM 9.2 mg/dl (8.5-10.1); CREATININE 1.1 mg/dl (0.60-1.20); MAGNESIUM 1.9 mg/dl (1.8-2.4); POTASSIUM 4.7 mmol/L (3.5-5.1)
[2017-04-13 06:38] VITALS: BP 124/77; PULSE 89; TEMP 37; O2SAT 96
[2017-04-13] MEDS: ASPIRIN 81 MG ECTAB PO SCH (07:27)
[2017-04-13] MEDS: CHLORTHALIDONE 25 MG TAB PO SCH (07:27)
[2017-04-13] MEDS: AMLODIPINE BESYLATE 5 MG TAB PO SCH (07:27)
[2017-04-13] MEDS: LISINOPRIL 40 MG TAB PO SCH ×2 (07:28→21:00)
[2017-04-13] MEDS ORDERED: INSULIN GLARGINE SOLOSTAR 100 UNITS/ML 3 ML PEN SC SCH ×3 (09:00→21:00)
[2017-04-13] MEDS: METFORMIN HCL 500 MG TAB PO SCH ×2 (11:49→17:55)
--- NOTE | 2017-04-13 13:29 | Pharmacy Progress Note ---
Glycemic Control Progress Note Date of Service Apr 13, 2017. Scope Glycemic Pharmacist consulted for glycemic control to write orders per [facility] inpatient glycemic control protocol. Objective Accuchecks BSG (last 24hrs): Test 04/12/17 13:30 04/12/17 15:18 04/12/17 16:17 04/12/17 17:25 Bedside Glucose 259 mg/dl (70-90) 137 mg/dl (70-90) 86 mg/dl (70-90) 77 mg/dl (70-90) Test 04/12/17 20:10 04/12/17 23:50 04/13/17 03:38 04/13/17 05:09 Bedside Glucose 72 mg/dl (70-90) 70 mg/dl (70-90) 82 mg/dl (70-90) Random Glucose 63 mg/dl (70-99) Test 04/13/17 06:36 04/13/17 12:03 04/13/17 12:44 Bedside Glucose 115 mg/dl (70-90) 69 mg/dl (70-90) 112 mg/dl (70-90) HbA1c: 11.4% 04/07/17 Recent Pertinent Medications The patient is currently receiving: * Basal insulin: Lantus every 12 hours: 50 units in the AM and 40 units in the PM given yesterday * Correctional Insulin: Novolog Correction per scale ACHS Goal Range: Low 110 mg/dL - High 140 mg/dL Correction Factor: 10 mg/dL/unit * Prandial insulin: Per carb ratio of 1 unit per 3 grams CHO consumed * Oral Agents: Metformin 1gm PO BID to begin on 04/13/17 Outpatient Anti-Diabetic Meds Lantus 25 units Q AM + 50 units Q PM Novolog 25 units with each meal Assessment & Plan ASSESSMENT: 04/12/17 * BSGs did peak at 287 overnight despite an aggressive basal/bolus regimen * Fasting BSG 227 this AM with 80 units of Lantus on board. He did receive an additional 50 units this AM (130 basal total at this time) * Last dose of dexamethasone IV given this AM at ~1000; would expect increase insulin resistance for ~36-48 hrs after last dose * Novolog CF and CR are appropriately aggressive, however given baseline level of insulin resistance combined w/ high dose steroids I may need to increase doses of each. Will follow post-prandial BSG pattern today and adjust PRN 04/13/17 * Insulin drip was initiated mid-day due to BSGs remaining 230+ since admission. * BSGs quickly dropped w/ insulin drip on board to the 70-80's range by dinner- time and remained at this level at bedtime. As a result the insulin drip was d/ c'd and SQ regimen was restarted. * Fasting BSG 63-115 this AM w/ 90 units of basal insulin on board; plan was to resume the patient's home insulin dose this AM however given continued episodes of mild hypoglycemia I will reduce the basal dose ~ 20% starting tonight as a precaution. The last dose of dexamethasone IV was given > 24 hrs ago and it appears her insulin sensitivity is already improving. * Pre-lunch hypoglycemic observed this AM after receiving 11 units Novolog w/ breakfast. Typically she takes 25 units Novolog w/ each meal at home. Either she is eating less CHO's now or she has excess Lantus on board. Will reduce the prandial insulin dose as a precaution. PLAN FOR INPATIENT GLYCEMIC CONTROL: * Continuing Lantus SQ BID but reduce dose; 22 units Q AM + 40 units Q PM * Will give a reduced HS dose tonight if BSG less than 130 (only 30 units) * Continuing correction factor of 10 mg/dl/unit * Changing carb ratio to 1 unit per 4 grams CHO consumed * Changing goal range to Low 120 mg/dL - High 150 mg/dL * Restart metformin today * Please note that the plan above was derived based on current level of insulin resistance and hospital stress. These recommendations are appropriate for inpatient admission only. Plan of care upon discharge will need to be reassessed to avoid potential outpatient hypo/hyperglycemia. Thank you.
[2017-04-13 14:45] VITALS: BP 160/65; PULSE 93; TEMP 37.2; O2SAT 95
--- NOTE | 2017-04-13 18:45 | Hospitalist Progress Note ---
Hospitalist Progress Note Date of Service Apr 13, 2017. Subjective Pt evaluation today including: conversation w/ patient Voiding: no voiding problems Off insulin gtt, had hypoglycemia this AM. Had a lot of back pain since this AM as she slept through when she wanted to take pain meds, got behind on pain. Denies CP or SOB, no BM yet All Other Systems: Reviewed and Negative Objective Vital Signs Date Time Temp Pulse Resp B/P (MAP) Pulse Ox O2 Delivery O2 Flow Rate FiO2 04/13/17 15:15 Room Air 04/13/17 14:45 37.2 93 18 160/65 (96) 95 Room Air 04/13/17 07:20 Room Air 04/13/17 06:38 37.0 89 16 124/77 (93) 96 Room Air 04/12/17 23:00 37.1 88 16 113/67 (82) 94 Room Air 04/12/17 20:06 76 123/73 (90) 04/12/17 19:15 Room Air Physical Exam General Appearance: no apparent distress, + obese Eyes: normal inspection, sclerae normal ENT: hearing grossly normal Neck: trachea midline Respiratory/Chest: lungs clear, normal breath sounds, no respiratory distress, no accessory muscle use Cardiovascular: regular rate, rhythm, no edema, no gallop, + systolic murmur (2 /6 KRISTI at LLSB) Abdomen: normal bowel sounds, non tender, soft Extremities: no calf tenderness, + swelling (1+ pitting edema legs to mid tibia bilat) Neurologic/Psychiatric: alert, normal mood/affect, oriented x 3 Skin: normal color, warm/dry Laboratory Results Last 24 Hours Test 04/12/17 20:10 04/12/17 23:50 04/13/17 03:38 04/13/17 05:09 Bedside Glucose 72 mg/dl 70 mg/dl 82 mg/dl White Blood Count 16.90 K/uL Red Blood Count 3.75 M/uL Hemoglobin 11.1 g/dL Hematocrit 32.6 % Mean Corpuscular Volume 86.9 fL Mean Corpuscular Hemoglobin 29.6 pg Mean Corpuscular Hemoglobin Concent 34.0 g/dl Platelet Count 264 K/uL Mean Platelet Volume 10.9 fL Neutrophils (%) (Auto) 78.6 % Lymphocytes (%) (Auto) 13.3 % Monocytes (%) (Auto) 7.3 % Eosinophils (%) (Auto) 0.2 % Basophils (%) (Auto) 0.1 % Neutrophils # (Auto) 13.27 K/uL Lymphocytes # (Auto) 2.25 K/uL Monocytes # (Auto) 1.24 K/uL Eosinophils # (Auto) 0.04 K/uL Basophils # (Auto) 0.01 K/uL RDW Standard Deviation 41.6 fL RDW Coefficient of Variation 12.9 % Immature Granulocyte % (Auto) 0.5 % Immature Granulocyte # (Auto) 0.09 K/uL Sodium Level 138 mmol/L Potassium Level 4.7 mmol/L Chloride Level 103 mmol/L Carbon Dioxide Level 30 mmol/L Anion Gap 5.0 mmol/L Blood Urea Nitrogen 29 mg/dl Creatinine 1.10 mg/dl Est Creatinine Clear Calc Drug Dose 72.9 ml/min Estimated GFR () 62.8 Estimated GFR (Non- 54.1 BUN/Creatinine Ratio 26.5 Random Glucose 63 mg/dl Calcium Level 9.2 mg/dl Magnesium Level 1.9 mg/dl Test 04/13/17 06:36 04/13/17 12:03 04/13/17 12:44 04/13/17 17:11 Bedside Glucose 115 mg/dl 69 mg/dl 112 mg/dl 80 mg/dl Assessment and Plan 61 y/o F Hx IDDM, HTN, HPL, lumbar stenosis, hypothyroidism, morbid obesity. The pt is post L4-S1 post decompression, L4-5 fusion. No significant intraoperative complications were reported. 1) S/P Lumbar decompression and fusion- doing well Post -op but with some expected pain- Pain control, PT/OT, post-op care as per Ortho Spine primary team -plan for discharge to home on Friday 2) DMII -severely uncontrolled, HgbA1C 11.4% on 04/07/17. Home meds include Lantus 30-40 units daily, Novolog 35 units qac. With hyperglycemia here secondary to IV steroids requiring insulin gtt yesterday. Now off gtt and had some hypoglycemia this AM. Pt admits to only checking glucose maybe once daily, can range from 60s-400s -Pharmacy Glycemic Control consult was placed -Lantus and SSI as per pharmacy and recommended to pt she closely follow same regimen at home, check glucose qac and qhs -restarted metformin -needs CDE on Friday prior to discharge -needs improved management as outpt as this could hinder her healing from lumbar surgery-discussed with pt today the importance of good glucose control for healing 3) HPL - lipid panel recently controlled, LDL 84 -cont Statin Tx 4) Hypothyroid - last TSH 3.16 on 04/07/17, controlled -cont Synthroid home dose 5) HTN - 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
[2017-04-13] MEDS: ATORVASTATIN 20 MG TAB PO SCH (21:00)
[2017-04-13] MEDS: DOCUSATE SODIUM/SENNA 50/8.6MG TAB PO SCH (21:00)
[2017-04-13 22:54] VITALS: BP 138/81; PULSE 118; TEMP 37.1; O2SAT 94
[2017-04-14] MEDS: OXYCODONE HCL IR 5 MG TAB (IMMEDIATE RELEASE) PO PRN ×2 (04:18→10:38)
[2017-04-14] MEDS: LEVOTHYROXINE 50 MCG TAB PO SCH (05:37)
[2017-04-14] MEDS: POLYETHYLENE (MIRALAX) 17 GM PACK PO SCH ×2 (05:37→12:00)
[2017-04-14 06:01] VITALS: BP 109/69; PULSE 124; TEMP 37.1; O2SAT 95
[2017-04-14] MEDS: LISINOPRIL 40 MG TAB PO SCH (07:31)
[2017-04-14] MEDS: METFORMIN HCL 500 MG TAB PO SCH (07:31)
[2017-04-14] MEDS: CHLORTHALIDONE 25 MG TAB PO SCH (07:32)
[2017-04-14] MEDS: AMLODIPINE BESYLATE 5 MG TAB PO SCH (07:32)
[2017-04-14] MEDS: ASPIRIN 81 MG ECTAB PO SCH (07:32)
[2017-04-14] MEDS: INSULIN ASPART 100 UNITS/ML 3 ML PEN SQ SCH ×2 (07:42→12:00)
[2017-04-14 07:44] VITALS: PULSE 120
[2017-04-14] MEDS ORDERED: INSULIN GLARGINE SOLOSTAR 100 UNITS/ML 3 ML PEN SC SCH (09:00)
[2017-04-14 11:00] VITALS: Ht 170.2 cm; Wt 122.4 kg
[2017-04-14 11:52] VITALS: BP 109/69; PULSE 120; TEMP 37.1; O2SAT 95
--- NOTE | 2017-04-14 12:56 | Progress Note ---
Subjective Date of Service: Apr 14, 2017. Subjective Pt evaluation today including: conversation w/ patient, physical exam, chart review, lab review, review of studies, review of inpatient medication list Resting in bed comfortably No worsening pain No concerns noted Review of Systems Constitutional: No fever, No chills, No sweats, No weakness, No fatigue Eyes: No worsening of vision, No eye pain, No redness, No discharge Respiratory: No cough, No sputum, No wheezing, No shortness of breath, No dyspnea on exertion Cardiac: No chest pain, No orthopnea, No PND, No edema, No claudication Abdomen: No pain, No nausea, No vomiting, No diarrhea, No constipation Musculoskeletal: No joint pain, No muscle pain, No swelling, No calf pain Female : No dysuria, No urinary frequency, No hematuria, No incontinence Neurologic: No memory loss, No paralysis, No weakness, No numbness/tingling Psychiatric: No depression symptoms, No anhedonism, No anxiety, No insomnia Endo: No fatigue, No excessive thirst Skin: No rash, No itch Objective Vital Signs Date Time Temp Pulse Resp B/P (MAP) Pulse Ox O2 Delivery O2 Flow Rate FiO2 04/14/17 11:52 37.1 120 16 95 Room Air 04/14/17 07:44 120 04/14/17 07:30 Room Air 04/14/17 06:01 37.1 124 16 109/69 (82) 95 Room Air 04/13/17 23:45 Room Air 04/13/17 22:54 37.1 118 16 138/81 (100) 94 Room Air 04/13/17 15:15 Room Air 04/13/17 14:45 37.2 93 18 160/65 (96) 95 Room Air Physical Exam General Appearance: WD/WN, no apparent distress Eyes: normal inspection, PERRL, EOMI, sclerae normal Neck: supple, no adenopathy, thyroid normal, no JVD Respiratory/Chest: chest non-tender, lungs clear, normal breath sounds, no respiratory distress Cardiovascular: regular rate, rhythm, no edema, no gallop, no JVD Abdomen: normal bowel sounds, non tender, soft, no organomegaly Extremities: normal range of motion, non-tender, normal inspection, no pedal edema Neurologic/Psychiatric: no motor/sensory deficits, alert, normal mood/affect, oriented x 3 Laboratory Results Last 24 Hours Test 04/13/17 17:11 04/13/17 20:18 04/14/17 06:10 04/14/17 12:03 Bedside Glucose 80 mg/dl 107 mg/dl 138 mg/dl 175 mg/dl Assessment and Plan 61 y/o F Hx IDDM, HTN, HPL, lumbar stenosis, hypothyroidism, morbid obesity. The pt is post L4-S1 post decompression, L4-5 fusion. No significant intraoperative complications were reported. S/P Lumbar decompression and fusion- doing well Post -op but with some expected pain- Pain control, PT/OT, post-op care as per Ortho Spine primary team -plan for discharge to home on Friday DMII -severely uncontrolled, HgbA1C 11.4% on 04/07/17. Home meds include Lantus 30-40 units daily, Novolog 35 units qac. With hyperglycemia here secondary to IV steroids requiring insulin gtt yesterday. Now off gtt and had some hypoglycemia this AM. 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
--- NOTE | 2017-04-14 13:28 | Discharge Summary ---
Orthopedic Discharge Summary Admission Date/Reason Apr 11, 2017 at 15:42 Lumbar Spinal Stenosis. Discharge Date/Disposition Apr 14, 2017 Home Diagnosis Principal Diagnosis: Lumbar spinal stenosis Admission Physical Exam As per Admitting History & Physical. Hospital Course Patient underwent lumbar decompression fusion tolerated this well as taken to the orthopedic floor postoperatively. Postoperative leash was up and amatory progressed nicely throughout her hospital stay MANISH drain decreasing appropriately substernally discharge home discharge orders and instructions found on the chart for further review. Discharge Instructions Please refer to the electronic Patient Visit Report (Discharge Instructions) for additional information.
--- NOTE | 2017-04-14 16:26 | Anesthesiology Progress Note ---
Anesthesia Post Op Note Date & Time Apr 14, 2017 at 16:25 Vital Signs Pain Intensity: 8.0 Vital Signs Past 12 Hours Date Time Temp Pulse Resp B/P (MAP) Pulse Ox O2 Delivery O2 Flow Rate FiO2 04/14/17 11:52 37.1 120 16 95 Room Air 04/14/17 07:44 120 04/14/17 07:30 Room Air 04/14/17 06:01 37.1 124 16 109/69 (82) 95 Room Air Notes Mental Status: alert / awake / arousable, participated in evaluation Pt Amnestic to Procedure: Yes Nausea / Vomiting: adequately controlled Pain: adequately controlled Airway Patency, RR, SpO2: stable & adequate BP & HR: stable & adequate Hydration State: stable & adequate Anesthetic Complications: no major complications apparent vomiting 1st day postop
== END 2017-04-14 13:25 | disposition home or self-care (01) | DRG 453 ==
LOC: C.ACU 08:51 → C.3E 15:42 → ENRESERV 16:29
PROVIDERS: ADMIT Orthopaedic Surgery Orthopaedic Surgery of the Spine; ATTEND Orthopaedic Surgery Orthopaedic Surgery of the Spine
PROC: 0SG00AJ Fusion of Lumbar Vertebral Joint with Interbody Fusion Device, Posterior Approach, Anterior Column, Open Approach (ICD-10-PCS; principal; 2017-04-11 11:45)
PROC: 0SG3071 Fusion of Lumbosacral Joint with Autologous Tissue Substitute, Posterior Approach, Posterior Column, Open Approach (ICD-10-PCS; principal; 2017-04-11 11:45)
PROC: 0ST20ZZ Resection of Lumbar Vertebral Disc, Open Approach (ICD-10-PCS; principal; 2017-04-11 11:45)
DX: M48.061 Spinal stenosis, lumbar region without neurogenic claudication (principal); J96.01 Acute respiratory failure with hypoxia; Z68.41 Body mass index [BMI] 40.0-44.9, adult; E11.65 Type 2 diabetes mellitus with hyperglycemia; I10 Essential (primary) hypertension; E78.5 Hyperlipidemia, unspecified; E03.9 Hypothyroidism, unspecified; E66.01 Morbid (severe) obesity due to excess calories; Z79.82 Long term (current) use of aspirin; Z79.899 Other long term (current) drug therapy; Z79.4 Long term (current) use of insulin; Z79.84 Long term (current) use of oral hypoglycemic drugs

== ENCOUNTER → 2017-11-17 | Outpatient (CLI) | payer OTHER ==
[~2017-11-17] MED LIST changes: -CEFAZOLIN 3000 MG/65 ML D5W 65 ML IV SCH; -LACTATED RINGER'S 1000ML 1,000 ML IV SCH; -NAPR-1169 PO; +RXC5 PO
[2017-11-17 13:44] LABS: ALT/SGPT 20 U/L (12-78); BLOOD UREA NITROGEN 26 mg/dl (7-18); CALCIUM 9.3 mg/dl (8.5-10.1); CARBON DIOXIDE 30 mmol/L (21-32); CREATININE 1.05 mg/dl (0.60-1.20); GLUCOSE 101 mg/dl (70-99); POTASSIUM 4.5 mmol/L (3.5-5.1); SODIUM 136 mmol/L (136-145)
[2017-11-17 13:45] LABS: LDL CHOLESTEROL (DIRECT) 85 mg/dl
== END | disposition home or self-care (01) ==
LOC: C.LABMFLN 07:03
PROVIDERS: ATTEND Family Medicine
DX: E78.5 Hyperlipidemia, unspecified (principal); E11.40 Type 2 diabetes mellitus with diabetic neuropathy, unspecified; E03.9 Hypothyroidism, unspecified; I10 Essential (primary) hypertension

== ENCOUNTER 2025-03-17 16:49 | Inpatient (IN) ==
[2025-03-17] MEDS: OPTIRAY 320 125ml IV ONE (17:01)
--- NOTE | 2025-03-17 17:34 | CT Scan Report ---
Clinical History: Possible stroke Technique: Axial computed tomography images were obtained of the brain from the vertex to the skull base without intravenous contrast. Findings: There is no sign of intracranial hemorrhage. There is normal walker-white matter differentiation with no sign of acute or old infarction. No midline shift or other form of herniation is identified. There is no hydrocephalus. No obvious mass lesion is seen on this noncontrast examination. There is fluid in the left sphenoid sinus. The mastoid air cells appear clear Impression: 1. Normal-appearing brain 2. Sphenoid sinusitis These findings were discussed with Dr. Coker at 5:31 PM and 03/17/2025 Electronically signed by Tramaine Chiu 03-17-2025 5:34 PM
--- NOTE | 2025-03-17 17:39 | CT Scan Report ---
Clinical History: Possible stroke Technique: Axial computed tomography images were obtained of the brain after the administration of intravenous contrast according to the CT angiogram protocol Findings: There is calcified plaque within the cavernous and supraclinoid segments of the internal carotid arteries bilaterally, with severe stenoses. There appears to be near occlusion No definite stenosis or aneurysm is seen of the anterior, middle, or posterior cerebral artery circulations. The basilar artery is patent Impression: 1. Severe stenoses of the distal internal carotid arteries bilaterally, just before their bifurcation, with near occlusion 2. No other definite stenosis or aneurysm of the intracranial arteries These findings were discussed with Dr. Coker at 5:31 PM and 03/17/2025 Electronically signed by Tramaine Chiu 03-17-2025 5:38 PM
--- NOTE | 2025-03-17 17:45 | CT Scan Report ---
Clinical History: Possible stroke Technique: Axial computed tomography images were obtained of the neck after the administration of intravenous contrast according to the CT angiogram protocol Findings: No stenosis is seen of the common carotid arteries bilaterally. There is a severe stenosis of the right carotid bulb and proximal right internal carotid artery with 70-80% diameter narrowing. There is atherosclerotic plaque in the left carotid bulb and proximal left internal carotid artery, with less than 30% diameter narrowing. There is a mild stenosis at the origin of the left external carotid artery There is a severe stenosis of the origin of the right vertebral artery. There is a severe stenosis of the distal right vertebral artery. There is a severe stenosis of the distal left vertebral artery also. The visualized thoracic aorta appears unremarkable. There is extensive coronary atherosclerosis. There is a mild stenosis of the proximal left subclavian artery There is multilevel degenerative disc disease and osteoarthritis of the cervical spine. There is partial opacification of the mastoid air cells bilaterally. There is a small calcified nodule in the left thyroid lobe Impression: 1. 70-80% stenosis of the right carotid bulb and proximal right ICA 2. Severe stenoses of the origin of the right vertebral artery and of the distal vertebral arteries bilaterally 3. Mild stenosis of the proximal left subclavian artery 4. Mild stenosis at the proximal left ECA 5. Partial opacification of the mastoid air cells bilaterally, which may be due to inflammatory mastoiditis 6. Small calcified thyroid nodule. A follow-up thyroid ultrasound could be obtained ACT 112: Positive. There are findings on this exam that require communication between the performing entity and the patient following Patient Test Result Information Act ([place] ACT 112) guidelines. Electronically signed by Tramaine Chiu 03-17-2025 5:44 PM
[2025-03-17] MEDS: SODIUM CHLORIDE 0.9% 500 ML IV ONE (17:55)
--- NOTE | 2025-03-17 17:55 | Emergency Department Note ---
Impression & Plan Stroke-like symptoms, New onset a-fib, Atrial fibrillation with rapid ventricular response, Acute hyponatremia ED Provider Note HISTORY OF PRESENT ILLNESS: Patient is a 69-year-old female presenting with strokelike symptoms. Patient reportedly was last seen well by her significant other at 11 AM when he left to go do errands. He reports that at 1240, he returned home and noted that the patient had some right sided facial droop, slurred speech and right upper extremity weakness. He states that symptoms lasted for about 30 minutes, but then seem to go away and the patient was talking normally and her facial droop had improved. He states that the patient then had another episode of the right sided facial droop and slurred speech and right upper extremity weakness occurring at 2:15 PM. He states that symptoms again lasted for a significant amount of time, prompting him to get her to the emergency department. Patient has a history of cardiac stents and is on Plavix. On arrival to the emergency department on my assessment, the patient's slurred speech and facial droop have completely resolved. ROS: as above PHYSICAL EXAM: Constitutional: Patient appears in no acute distress. HENT: Head: Normocephalic and atraumatic. Eyes: EOMI, PERRL Mouth/Throat: Mucous membranes moist. Neck: Trachea midline. Neck supple. Cardiovascular: Tachycardic with irregularly irregular rhythm. No murmurs, rubs or gallops. Intact distal pulses. Pulmonary/Chest: No respiratory distress. Breath sounds clear and equal bilaterally. No wheezes or rales. Abdominal: Abdomen soft, no tenderness, rebound or guarding. Musculoskeletal: No edema, tenderness or deformity noted. Skin: Warm and dry. No rash, erythema, pallor or cyanosis Psychiatric: Appropriate mood and affect for situation. Neurological: Alert and keenly responsive. Facies symmetric. Able to raise eyebrows, close eyes, smile, puff mouth, stick out tongue, move tongue left and right and raise palate symmetrically. Able to shrug shoulders. PERRLA. SILT to forehead below eye and at jawline. Can hear soft noise bilaterally. Good finger to nose. Strength 5/5 in bilateral upper and lower extremities. SILT throughout bilateral upper and lower extremities. MDM: - Vitals signs showed tachycardia. Fingerstick glucose of 185 mg/dL. - History obtained via patient and patient's . History as above. - Chronic conditions affecting care: ESRD; HTN; DM-2; HTN; HLD; hypothyroidism - Differential diagnoses include, but are not limited to: TIA; CVA; intracranial hemorrhage; dysrhythmia; electrolyte abnormality; ACS - Order placed for continuous cardiac monitoring. At this time, monitor showed rate of 115 bpm with irregular rhythm, per my interpretation. - External medical records reviewed. Primary care visit note dated 01/18/2025 was reviewed. Patient is on peritoneal dialysis at home. - EKG image interpreted by myself showed atrial fibrillation. Rate tachycardic at 113 bpm. QT 370. Noted to have a right bundle branch block. - Patient is outside of the window for TNK at this time. She is having waxing waning symptoms. She was taken immediately to CT scan on arrival to the ER. She has an NIH of [address] assessment[address] Her CT head without contrast images were reviewed by myself and negative for intracranial hemorrhage, per my interpretation. - Discussed case with telemetry stroke neurologist at [facility], Dr. Parish, at 17:28. She interpreted the CT head without contrast as normal at 17:30. She took a look at the CTA imaging of the patient's head and neck stated there was no LVO at 17:31. States that she will log in and see the patient as of 17:33. - After evaluating the patient, Dr. Parish recommended the patient be given 324 mg aspirin. Reports the patient is high risk for TIA secondary to a "ABCD2 score of 7" per Dr. Parish. She had suggested to consult cardiology for potential cardioversion given the new onset A-fib. Recommended that patient be given atorvastatin 80 mg daily. Recommended patient be given aspirin 325 mg in addition to her home Plavix. States that "once anticoagulation is started for the A-fib, you can stop the aspirin." Recommended admission for obtaining MRI, A1c and echocardiogram. -Given no large vessel occlusion, the patient will not need emergent transfer for thrombectomy at this time. Will plan to admit to hospitalist for further strokelike workup and further workup for her new onset A-fib with RVR. - CT head wo contrast negative for acute intracranial pathology - Laboratory workup interpreted by myself showed slight leukocytosis (WBC 11.05); normal PT/INR; hyponatremia (Na 128); elevated anion gap (14); ESRD (Cr 9.33) - CXR image reviewed and interpreted by myself as needed for pneumonia, per my interpretation. - CTA head showed severe stenosis of the distal internal carotid arteries bilaterally with near occlusion. - CTA neck showed 70 to 80% stenosis of the right carotid bulb and proximal right ICA. Noted to have severe stenosis of the origin of the right vertebral artery and the distal vertebral arteries bilaterally. - Called to the room by nursing staff because patient was stating that she was having symptoms again. However, on reassessment there is no appreciable facial droop, her speech is clear and she has no appreciable weakness in her right upper extremity. - Patient given 325 mg of aspirin and 80 mg Lipitor ordered. - Discussion was had with casework manager about patient's case and need for admission - Hospitalist consulted for admission - [facility]. I have personally spent 67 minutes of critical care time in the direct management of this patient. This includes bedside care, interpretation of diagnostic studies, and testing, discussion with consultants, patient, and family members, and other required patient management activities. This 67 minutes is in excess of all separately billable procedures. ASSESSMENT AND PLAN: Diagnosis: Strokelike symptoms; A-fib with RVR; acute hyponatremia; new onset A- fib Plan: Admit Past Med/Surg History Problem List (Updated 03/17/25 @ 20:27 by Carolina Coker MD) Acute hyponatremia (Acute) Atrial fibrillation with rapid ventricular response (Acute) New onset a-fib (Acute) Stroke-like symptoms (Acute) Hyponatremia New onset a-fib Stroke-like symptom Depression Decubitus ulcer Community acquired pneumonia of right lower lobe of lung Severe muscle deconditioning ESRD (end stage renal disease) Gait instability Balance problem Medicare annual wellness visit, subsequent End-stage renal disease on hemodialysis Right shoulder pain Vitamin B12 deficiency Ischemic cardiomyopathy Coronary artery disease Hypertensive CKD, ESRD on dialysis Prerenal azotemia Mass of right kidney Nausea Poorly controlled type 1 diabetes mellitus Hypothyroidism Hypertension Hyperlipidemia Diabetes Acute kidney injury (Acute) Severe hypertension (Chronic) CKD stage 4 due to type 2 diabetes mellitus Hip pain Lumbar stenosis with neurogenic claudication Medical History Peritoneal dialysis adequacy testing Pneumonia C. difficile colitis Surgical History History of nasal polypectomy History of dilation and curettage History of cholecystectomy History of delivery Family History Mother Heart disease Hypertension Myocardial infarction Father Cancer Denies family history of Ovarian cancer Prostate cancer Breast cancer Colorectal cancer Social History Smoking Status: Never smoker Second Hand Exposure: No; Do You Dip or Chew Tobacco: No; Hx Alcohol Use: Yes Alcohol type: beer and wine Alcohol Intake Frequency: Monthly or Less Hx Substance Use: No Preferred Language: Rwandan Communication Ability: Effective Visual Impairment: Partially Limited Hearing Ability: Normal Spear Fisher Required: No marital status: Current Living Situation: Spouse 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al status: retired 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 How many Children do You have: 2 Feels Safe at Home: Yes Childhood Exposure to Second-Hand Smoke: Yes Diet: low carbohydrate, low salt and regular caffeine: Yes during the past year weight has: remained stable Dental Care, Regularly: No Physical Activity Frequency: Does not Exercise Seatbelt Use: sometimes Sunscreen Use: Yes Do you think of yourself as: straight/heterosexual Gender Identity: Female Assistive Devices: Glasses Allergies Allergies Allergy/AdvReac Type Severity Reaction Status Date / Time codeine Allergy Unknown SEVERE Verified 03/17/25 18:21 NAUSEA, VOMITING, "ROOM SPINS" tramadol AdvReac Intermediate Vomiting Verified 03/17/25 18:21 acetaminophen [From Endocet] AdvReac Verified 03/17/25 18:21 homatropine AdvReac Verified 03/17/25 18:21 [From Hycodan (with homatropin)] hydrocodone AdvReac Verified 03/17/25 18:21 [From Hycodan (with homatropin)] oxycodone [From Endocet] AdvReac Verified 03/17/25 18:21 atorvastatin AdvReac myalgias Uncoded 03/17/25 18:21 legs Home Meds Home Medications Medication Instructions Recorded Confirmed clopidogrel 75 mg tablet 75 mg PO QAM 05/02/23 03/17/25 vitamin B complex-vitamin C-folic 1 tab PO QAM 09/09/23 03/17/25 acid 0.8 mg tablet (Radha-Heriberto) cholecalciferol (vitamin D3) 1,250 50,000 unit PO MONTHLY 09/07/24 03/17/25 mcg (50,000 unit) capsule clotrimazole 1 % topical cream 1 applic topical BID PRN flare 03/17/25 03/17/25 docusate sodium 100 mg capsule 100 mg PO DAILY PRN Constipation 03/17/25 03/17/25 dulaglutide 0.75 mg/0.5 mL 0.75 mg subcut WK 03/17/25 03/17/25 subcutaneous pen injector (Trulicity) levothyroxine 25 mcg tablet 25 mcg PO DAILYBB 03/17/25 03/17/25 ondansetron HCl 4 mg tablet 4 mg PO Q6H PRN Nausea And Vomiting 03/17/25 03/17/25 zinc oxide 16 %-40 % topical 1 ea topical TID PRN Flare 03/17/25 03/17/25 ointment Previous Rx's Medication Instructions Recorded blood glucose control, normal #1 ea 05/28/22 (OneTouch Verio Mid Control solution) blood-glucose meter ([employer] [employer] MaterialsTouch #1 ea 05/28/22 Verio Flex Meter) pen needle, diabetic 31 gauge x #100 ea 06/25/2307/17" (1st Tier Unifine Pentips Plus) polyethylene glycol 3350 17 17 g PO DAILY PRN constipation 03/09/24 gram/dose oral powder (Miralax) #238 grams insulin glargine 100 unit/mL (3 30 unit (0.3 mL) subcut BID #15 mL 12/20/24 mL) subcutaneous pen (Lantus Solostar U-100 Insulin) blood sugar diagnostic (OneTouch #300 ea 02/17/25 Verio test strips) Results & Data (ED) Vital Signs Vital Signs - 24 hr 03/17/25 16:49 03/17/25 16:49 03/17/25 16:54 Temperature 36.4 C L Temperature Source Oral Pulse Rate 112 H Pulse Rate [Right Finger] 155 H Pulse Rate from SpO2 Sensor Respiratory Rate 20 18 Respiratory Effort / Characteristics Non-Labored Spontaneous Respiratory Depth Normal Respiratory Pattern Regular Blood Pressure 137/93 Blood Pressure [Left Arm] 164/90 H Blood Pressure Mean 107 Blood Pressure Mean [Left Arm] 114 Pulse Oximetry 96 96 Oxygen Delivery Method Room Air Room Air Sepsis Recent Fever Within 48 Hours No Sepsis New/Unexplained Change in Mental Status N/A Sepsis Action Taken by Nursing No Action Required 03/17/25 16:57 03/17/25 16:57 03/17/25 17:20 Temperature Temperature Source Pulse Rate 110 H Pulse Rate [Right Finger] Pulse Rate from SpO2 Sensor Respiratory Rate 18 Respiratory Effort / Characteristics Respiratory Depth Respiratory Pattern Blood Pressure 164/90 H Blood Pressure [Left Arm] Blood Pressure Mean 91 Blood Pressure Mean [Left Arm] Pulse Oximetry 92 Oxygen Delivery Method Room Air Room Air Sepsis Recent Fever Within 48 Hours Sepsis New/Unexplained Change in Mental Status Sepsis Action Taken by Nursing 03/17/25 17:26 03/17/25 17:45 03/17/25 18:00 Temperature Temperature Source Pulse Rate 152 H 111 H 109 H Pulse Rate [Right Finger] Pulse Rate from SpO2 Sensor 109 H Respiratory Rate 20 25 H Respiratory Effort / Characteristics Respiratory Depth Respiratory Pattern Blood Pressure Blood Pressure [Left Arm] Blood Pressure Mean Blood Pressure Mean [Left Arm] Pulse Oximetry 97 Oxygen Delivery Method Sepsis Recent Fever Within 48 Hours Sepsis New/Unexplained Change in Mental Status Sepsis Action Taken by Nursing 03/17/25 18:01 03/17/25 18:01 03/17/25 18:01 Temperature Temperature Source Pulse Rate Pulse Rate [Right Finger] Pulse Rate from SpO2 Sensor Respiratory Rate Respiratory Effort / Characteristics Respiratory Depth Respiratory Pattern Blood Pressure 165/93 H 165/93 H 165/93 H Blood Pressure [Left Arm] Blood Pressure Mean 109 109 109 Blood Pressure Mean [Left Arm] Pulse Oximetry Oxygen Delivery Method Sepsis Recent Fever Within 48 Hours Sepsis New/Unexplained Change in Mental Status Sepsis Action Taken by Nursing 03/17/25 18:03 03/17/25 18:19 03/17/25 19:10 Temperature Temperature Source Pulse Rate 107 H Pulse Rate [Right Finger] 110 H 128 H Pulse Rate from SpO2 Sensor 107 H Respiratory Rate 22 18 Respiratory Effort / Characteristics Respiratory Depth Respiratory Pattern Blood Pressure Blood Pressure [Left Arm] 135/81 116/80 Blood Pressure Mean Blood Pressure Mean [Left Arm] 99 92 Pulse Oximetry 99 97 Oxygen Delivery Method Sepsis Recent Fever Within 48 Hours Sepsis New/Unexplained Change in Mental Status Sepsis Action Taken by Nursing 03/17/25 19:30 Temperature Temperature Source Pulse Rate 105 H Pulse Rate [Right Finger] Pulse Rate from SpO2 Sensor Respiratory Rate 20 Respiratory Effort / Characteristics Respiratory Depth Respiratory Pattern Blood Pressure 131/82 Blood Pressure [Left Arm] Blood Pressure Mean 97 Blood Pressure Mean [Left Arm] Pulse Oximetry 97 Oxygen Delivery Method Room Air Sepsis Recent Fever Within 48 Hours Sepsis New/Unexplained Change in Mental Status Sepsis Action Taken by Nursing Laboratory Data 03/17/25 17:19 03/17/25 17:19 Lab Results 03/17/25 03/17/25 03/17/25 Range/Units 17:19 17:22 17:50 WBC 11.05 H (4.8-10.8) K/ul RBC 4.33 (4.20-5.40) M/uL Hgb 14.2 (12.0-16.0) g/dl POC Hgb 15.3 (12.0-16.0) g/dl Hct 42.0 (37.0-47.0) % POC Hct 45 (37-47) % MCV 97.0 (80.0-100.0) fL MCH 32.8 (25.0-34.0) pg MCHC 33.8 (32.0-36.0) g/dL RDW Std Deviation 49.9 H (36.4-46.3) fL RDW Coeff of Darrian 14.0 (11.5-14.5) % Plt Count 196 (130-400) K/uL MPV 10.8 (9.4-12.4) fL PT 10.9 (9.0-12.0) Seconds INR 1.0 (0.9-1.1) APTT 26 (21-31) Seconds PTT Ratio 1.0 POC Sodium 129 L (135-144) mmol/L Sodium 128 L (136-145) mmol/L POC Potassium 4.2 (3.3-5.0) mmol/L Potassium 4.2 (3.5-5.1) mmol/L POC Chloride 90 L (101-112) mmol/L Chloride 88 L (98-107) mmol/L Carbon Dioxide 26 (21-32) mmol/L POC Total CO2 25 (24-31) mmol/L Anion Gap 14 H (3-11) POC Anion Gap 19.0 (16-25) mmol/L POC BUN 40 H (7-18) mg/dl BUN 42 H (6-23) mg/dl Creatinine 9.33 H* (0.6-1.2) mg/dl POC Creatinine 9.7 H* (0.6-1.3) mg/dl Est Cr Clr Drug Dosing 7.5 ml/min eGFR 4.18 BUN/Creatinine Ratio 4.5 L (10-20) Glucose 184 H (70-99(Fasting)) mg/dl POC Glucose 185 H (70-99) mg/dl POC Glucose (other) 173 H (70-99) mg/dl Calcium 9.5 (8.6-10.3) mg/dl POC Ioniz Calcium Mauro 1.07 L (1.12-1.32) mmol/l Magnesium 2.4 (1.7-2.4) mg/dl Total Bilirubin 0.5 (0.2-1.0) mg/dl AST 14 (13-39) U/L ALT 19 (7-52) U/L Alkaline Phosphatase 108 H (34-104) U/L Total Protein 7.1 (6.0-8.3) gm/dl Albumin 3.7 (3.4-5.0) gm/dl Globulin 3.4 (2.5-4.0) gm/dl Albumin/Globulin Ratio 1.1 (0.9-2) Administered Medications Atorvastatin Calcium (Atorvastatin 40 Mg Tab) 80 mg PO QAM HATTIE Stop: 04/16/25 18:29 Last Admin: 03/17/25 18:34 Dose: 80 mg Documented By: tyler Discontinued Medications Aspirin (Aspirin Chew 324 Mg) 324 mg PO NOW STA Stop: 03/17/25 18:25 Last Admin: 03/17/25 18:34 Dose: 324 mg Documented By: tyler Sodium Chloride (Nss) 500 mls @ 999 mls/hr IV .Q31M ONE Stop: 03/17/25 18:01 Last Infusion: 03/17/25 18:35 Dose: Infused Documented By: tyler Admin: 03/17/25 17:55 Dose: 999 mls/hr Documented By: tyler Ioversol (Optiray 320 125ml) 118 ml IV ONCE ONE Stop: 03/17/25 17:02 Last Admin: 03/17/25 17:01 Dose: 118 ml Documented By: ALLEN Metoprolol Tartrate (Metoprolol Tartrate 25 Mg Tab) 12.5 mg PO NOW STA Stop: 03/17/25 19:00 Last Admin: 03/17/25 19:14 Dose: 12.5 mg Documented By: [facility] Imaging Data Radiologist's Impression: Chest X-Ray 03/17/25 16:57 Chest radiograph, one view History: Stroke alert Comparison: None Findings: Single AP view of the chest performed. No focal consolidation or pleural effusion. No pneumothorax. The cardiomediastinal silhouette is within normal limits. Normal pulmonary vascularity. No evidence for lymphadenopathy. No visualized bony or soft tissue abnormality. Impression: Normal chest radiograph Electronically signed by Arun Chen 03-17-2025 7:[address] 03/17/25 16:57 Clinical History: Possible stroke Technique: Axial computed tomography images were obtained of the brain from the vertex to the skull base without intravenous contrast. Findings: There is no sign of intracranial hemorrhage. There is normal walker-white matter differentiation with no sign of acute or old infarction. No midline shift or other form of herniation is identified. There is no hydrocephalus. No obvious mass lesion is seen on this noncontrast examination. There is fluid in the left sphenoid sinus. The mastoid air cells appear clear Impression: 1. Normal-appearing brain 2. Sphenoid sinusitis These findings were discussed with Dr. Coker at 5:31 PM and 03/17/2025 Electronically signed by Tramaine Chiu 03-17-2025 5:34 PM Head CTA 03/17/25 16:58 Clinical History: Possible stroke Technique: Axial computed tomography images were obtained of the brain after the administration of intravenous contrast according to the CT angiogram protocol Findings: There is calcified plaque within the cavernous and supraclinoid segments of the internal carotid arteries bilaterally, with severe stenoses. There appears to be near occlusion No definite stenosis or aneurysm is seen of the anterior, middle, or posterior cerebral artery circulations. The basilar artery is patent Impression: 1. Severe stenoses of the distal internal carotid arteries bilaterally, just before their bifurcation, with near occlusion 2. No other definite stenosis or aneurysm of the intracranial arteries These findings were discussed with Dr. Coker at 5:31 PM and 03/17/2025 Electronically signed by Tramaine Chiu 03-17-2025 5:38 PM Neck CTA 03/17/25 16:58 Clinical History: Possible stroke Technique: Axial computed tomography images were obtained of the neck after the administration of intravenous contrast according to the CT angiogram protocol Findings: No stenosis is seen of the common carotid arteries bilaterally. There is a severe stenosis of the right carotid bulb and proximal right internal carotid artery with 70-80% diameter narrowing. There is atherosclerotic plaque in the left carotid bulb and proximal left internal carotid artery, with less than 30% diameter narrowing. There is a mild stenosis at the origin of the left external carotid artery There is a severe stenosis of the origin of the right vertebral artery. There is a severe stenosis of the distal right vertebral artery. There is a severe stenosis of the distal left vertebral artery also. The visualized thoracic aorta appears unremarkable. There is extensive coronary atherosclerosis. There is a mild stenosis of the proximal left subclavian artery There is multilevel degenerative disc disease and osteoarthritis of the cervical spine. There is partial opacification of the mastoid air cells bilaterally. There is a small calcified nodule in the left thyroid lobe Impression: 1. 70-80% stenosis of the right carotid bulb and proximal right ICA 2. Severe stenoses of the origin of the right vertebral artery and of the distal vertebral arteries bilaterally 3. Mild stenosis of the proximal left subclavian artery 4. Mild stenosis at the proximal left ECA 5. Partial opacification of the mastoid air cells bilaterally, which may be due to inflammatory mastoiditis 6. Small calcified thyroid nodule. A follow-up thyroid ultrasound could be obtained ACT 112: Positive. There are findings on this exam that require communication between the performing entity and the patient following Patient Test Result Information Act ([place] ACT 112) guidelines. Electronically signed by Tramaine Chiu 03-17-2025 5:44 PM Discharge Plan Visit Data Chief Complaint: Stroke Alert Stated Complaint: STROKE SYMPTOMS ED Provider: Carolina Coker Discharge Problem: Stroke-like symptoms, New onset a-fib, Atrial fibrillation with rapid ventricular response, Acute hyponatremia Condition: Fair Forms Stand Alone Forms: [facility] [employer] Prescriptions Prescriptions: No Action (DME) blood-glucose meter [OneTouch Verio Flex meter] Misc See Rx Instructions .Route Qty: 1 0RF Rx Instructions: As directed-check 3 times daily (DME) pen needle, diabetic [1st Tier Unifine Pentips Plus] 31 gauge x 1/4" needle See Rx Instructions .Route Qty: 100 3RF Rx Instructions: As directed Insulin 2x/day Dx E11.9 insulin glargine [Lantus Solostar U-100 Insulin] 100 unit/mL (3 mL) insulin pen 30 unit subcut BID Qty: 15 3RF (DME) OneTouch Verio test strips Strip See Dose Instructions .ROUTE .MEDSUPPLY Qty: 300 1RF Dose Instruction: As directed Rx Instructions: As directed 3 times a day dx: E11.9 (DME) blood glucose control, normal [OneTouch Verio Mid Control] Solution See Rx Instructions .Route Qty: 1 0RF Rx Instructions: As directed Radha-Heriberto 0.8 mg tablet 1 tab PO QAM clopidogrel 75 mg tablet 75 mg PO QAM polyethylene glycol 3350 [Miralax] 17 gram/dose powder 17 g PO DAILY PRN (Reason: constipation) Qty: 238 3RF cholecalciferol (vitamin D3) 1,250 mcg (50,000 unit) capsule 50,000 unit PO MONTHLY ondansetron HCl 4 mg tablet 4 mg PO Q6H PRN (Reason: Nausea And Vomiting) levothyroxine 25 mcg tablet 25 mcg PO DAILYBB docusate sodium 100 mg capsule 100 mg PO DAILY PRN (Reason: Constipation) Rx Instructions: Take 100 mg (1 capsule) orally twice a day As Needed for constipation clotrimazole 1 % cream 1 applic topical BID PRN (Reason: flare) Trulicity 0.75 mg/0.5 mL pen injector 0.75 mg subcut WK Rx Instructions: Friday zinc oxide 16-40 % ointment 1 ea topical TID PRN (Reason: Flare) Referrals Referrals: Donald Sinha MD [Primary Care Provider] -
[2025-03-17 18:00] LABS: Hematocrit (blood only) 42.0 % (37.0-47.0); Hemoglobin 14.2 g/dl (12.0-16.0); Mean Corpuscular Hemoglobin 32.8 pg (25.0-34.0); Mean Corpuscular Volume 97.0 fL (80.0-100.0); Platelet Count 196 K/uL (130-400); RDW Standard Deviation 49.9 fL (36.4-46.3); Red Blood Count 4.33 M/uL (4.20-5.40); White Blood Count 11.05 K/ul (4.8-10.8)
[2025-03-17] MEDS: ASPIRIN CHEW 324 MG PO STA (18:34)
[2025-03-17] MEDS: ATORVASTATIN 40 MG TAB PO SCH (18:34)
[2025-03-17 18:39] LABS: Alanine Aminotransferase 19.0 U/L (7-52); Albumin Globulin Ratio 1.1 (0.9-2); Alkaline Phosphatase 108.0 U/L (34-104); Anion Gap 14.0 (3-11); Bilirubin,Total 0.5 mg/dl (0.2-1.0); Blood Urea Nitrogen 42.0 mg/dl (6-23); Calcium 9.5 mg/dl (8.6-10.3); Carbon Dioxide 26.0 mmol/L (21-32); Chloride 88.0 mmol/L (98-107); Creatinine Clr Calc Pharmacy 7.5 ml/min; Globulin 3.4 gm/dl (2.5-4.0); Glucose 184.0 mg/dl (70-99(Fasting)); Magnesium 2.4 mg/dl (1.7-2.4); Potassium 4.2 mmol/L (3.5-5.1); Sodium 128.0 mmol/L (136-145); Total Protein 7.1 gm/dl (6.0-8.3)
--- NOTE | 2025-03-17 18:47 | Communication Note ---
Date of Service: March 17, 2025 69 y/o with ESRD on PD ([facility] nephrology?) and [facility] came in as stroke alert, waxing/waning stroke sx since 12:40. R facial droop, slurred speech and RUE weakness Seen by [facility] telestroke rec ASA and Plavix, brain MRI severe bilateral carotid, vertebral stenoses on CTA Sx free on arrival, no LVO so not candidate for TNKase Some waxing and waning of sx in ED but NIHSS remains low In new onset afib as well - rates initially high now more like 110s. Discussed with ED MD - tolerating, BP normal, will order metoprolol tartrate 12.5 mg po now to provide a little rate control without dropping BP significantly Hyponatremia with Na 128 Diabetes
[2025-03-17 19:03] LABS: INR 1.0 (0.9-1.1); Partial Thromboplastin Time 26 Seconds (21-31); Prothrombin Time 10.9 Seconds (9.0-12.0)
--- NOTE | 2025-03-17 19:08 | XRay Report ---
Chest radiograph, one view History: Stroke alert Comparison: None Findings: Single AP view of the chest performed. No focal consolidation or pleural effusion. No pneumothorax. The cardiomediastinal silhouette is within normal limits. Normal pulmonary vascularity. No evidence for lymphadenopathy. No visualized bony or soft tissue abnormality. Impression: Normal chest radiograph Electronically signed by Arun Chen 03-17-2025 7:07 PM
[2025-03-17] MEDS: METOPROLOL TARTRATE 25 MG TAB PO STA (19:14)
--- NOTE | 2025-03-17 20:04 | History & Physical Report ---
Date of Service March 17, 2025 Assessment & Plan (1) Stroke-like symptom: (2) New onset a-fib: (3) Hyponatremia: Plan This is a 69 y/o F PMHx ESRD on PD, CAD s/p stent placement x5 in 2022 (w/ Serge) HTN, HLD, and T2DM who presented to the ED with waxing and waning right-sided facial droop, dysarthria, and RUE weakness. History was taken by patient and her . states he last saw patient well around 11am this morning before leaving the house to run errands. Arrived home around 12:40pm and noticed patient with right-sided facial droop and slurred speech. States this episodes resolved, however another one started around 2:15pm. He is unsure of how long these symptoms last for when they first onset, however seemed long in duration which prompted visit to ED. Patient does not have history of previous stroke, however does have significant cardiac history for 5x stent placement in 2022 with Serge and for which she is on Plavix. Denies any headache, dizziness, N/V, chest pain, SOB during these episodes. States that she has never had these or similar symptoms before in the past. On arrival to ED, patient was initially without symptoms however has had about 5-6 repeat episodes since arrival. ED labs showing CBC nonactionable. BMP with hyponatremia Na 129. Anion gap 14. Other electrolytes stable. EKG showing new-onset a.fib with rate initially in 110s. CXR without acute disease. CTA head/neck showing severe bilateral carotid artery stenoses, and vertebral artery stenosis. Patient is being admitted for waxing/waning stroke-like symptoms in the setting of BL carotid and vertebral artery stenosis found on CTA head/neck and new-onset a. fib. #stroke-like symptoms/TIA vs ischemic stroke - patient with waxing and waning stroke-like symptoms of right-sided facial droop and slurred speech that started after 11am this morning. Since arrival to ED, patient has had about 5-6 repeat episodes. During my exam patient was with symptoms that seemed to begin to resolve after about 15 minutes. - CTA head/neck showing severe bilateral carotid artery stenoses and vertebral artery stenosis, however no evidence of acute intracranial pathology - [facility] tele stroke consult was completed when patient first arrived to ED - r ecommendations: - MRI brain - ASA 324 mg (can continue with ASA 81 mg po starting in AM) ; switched home plavix to Brilinta - ordered Brilinta 180 mg loading dose to be given now, 80mg maintenance dose to start 12hr from loading dose - high-intensity statin atorvastatin 80mg po daily - goal BP 140-160/80 - A1c & lipid panel ordered - echo ordered and pending - given IV fluids normal saline bolus x1 and will continue with maintenance fluids normal saline 100 ml/hr - vascular surgery consulted given patient's CTA findings - CBC & BMP qAM - continue cardiac monitoring - neuro checks q4h - keep HOB flat - EKG & O2 prn - PT/OT evaluation - [employer] evaluation, dysphagia screening and aspiration precautions in place #new-onset a. fib - EKG on arrival to ED showing atrial fibrillation with rate 110s - started metoprolol 12.5mg po daily for rate control - echo ordered and pending - hold further anticoagulation pending MRI to avoid hemorrhagic conversion if ischemia is present - continue telemetry monitoring; EKG prn chest pain #hyponatremia - Na 129 on admission ; unclear of etiology at this time - IV fluid normal saline bolus x1 - urine osm, urine sodium, and serum osm ordered #ESRD on PD - patient receiving peritoneal dialysis outpatient - nephrology consulted - electrolytes were stable on admission labs ; ionized calcium was low at 1.07, replaced with calcium gluconate 1g. - previously on midodrine, however was discontinued due to patient inability to tolerate #T2DM - on insulin and Trulicity at home ; hold Trulicity - repeat A1c ordered - SSI ordered - ACHS checks q4h #hypothyroidism - continue home levothyroxine 75mcg po daily DVT - SCDs, hold chemical prophylaxis to avoid hemorrhagic conversion if ischemic stroke present Dispo - PCU. History of Present Illness Chief Complaint: stroke-like symptoms Primary Care Provider: Donald Sinha MD Debbie Estrada is a 69 y/o F PMHx ESRD on PD, CAD s/p stent placement x5 in 2022 (w/ Gemarcelaer) HTN, HLD, and T2DM who presented to the ED with waxing and waning right-sided facial droop, dysarthria, and RUE weakness. History was taken by patient and her . states he last saw patient well around 11am this morning before leaving the house to run errands. Arrived home around 12:40pm and noticed patient with right-sided facial droop and slurred speech. States this episodes resolved, however another one started around 2:15pm. He is unsure of how long these symptoms last for when they first onset, however seemed long in duration which prompted visit to ED. Patient does not have history of previous stroke, however does have significant cardiac history for 5x stent placement in 2022 with Serge and for which she is on Plavix. Denies any headache, dizziness, N/V, chest pain, SOB during these episodes. States that she has never had these or similar symptoms before in the past. Denies tobacco, alcohol, and recreational drug use. Lives at home with her and states she is wheelchair dependent, however is able to perform ADLs relatively independently. States most recent fall at home with in January 2025 which resulted in 3 day hospital admission in [place], [place]. On arrival to ED, patient was initially without symptoms however has had about 5-6 repeat episodes since arrival. ED labs showing CBC nonactionable. BMP with hyponatremia Na 129. Anion gap 14. Other electrolytes stable. EKG showing new-onset a.fib with rate initially in 110s. CXR without acute disease. CTA head/neck showing severe bilateral carotid artery stenoses, and vertebral artery stenosis. During my evaluation, patient was having repeat episode of right-sided facial droop and slurred speech, which seemed to begin to resolve in around 15 minutes. Patient is being admitted for waxing/waning stroke-like symptoms in the setting of BL carotid and vertebral artery stenosis found on CTA head/neck and new-onset a. fib. Allergies Allergy/AdvReac Type Severity Reaction Status Date / Time codeine Allergy Unknown SEVERE Verified 03/17/25 18:21 NAUSEA, VOMITING, "ROOM SPINS" tramadol AdvReac Intermediate Vomiting Verified 03/17/25 18:21 acetaminophen [From Endocet] AdvReac Verified 03/17/25 18:21 homatropine AdvReac Verified 03/17/25 18:21 [From Hycodan (with homatropin)] hydrocodone AdvReac Verified 03/17/25 18:21 [From Hycodan (with homatropin)] oxycodone [From Endocet] AdvReac Verified 03/17/25 18:21 atorvastatin AdvReac myalgias Uncoded 03/17/25 18:21 legs Home Medications Medication Instructions Recorded Confirmed Type blood glucose control, normal #1 ea 05/28/22 01/07/25 Rx (OneTouch Verio Mid Control solution) blood-glucose meter (OneTouch #1 ea 05/28/22 01/07/25 Rx Verio Flex Meter) clopidogrel 75 mg tablet 75 mg PO QAM 05/02/23 03/17/25 History pen needle, diabetic 31 gauge x #100 ea 06/25/23 01/07/25 Rx 1/4" (1st Tier Unifine Pentips Plus) vitamin B complex-vitamin C-folic 1 tab PO QAM 09/09/23 03/17/25 History acid 0.8 mg tablet (Radha-Heriberto) polyethylene glycol 3350 17 17 g PO DAILY PRN constipation 03/09/24 03/17/25 Rx gram/dose oral powder (Miralax) #238 grams cholecalciferol (vitamin D3) 1,250 50,000 unit PO MONTHLY 09/07/24 03/17/25 History mcg (50,000 unit) capsule insulin glargine 100 unit/mL (3 30 unit (0.3 mL) subcut BID #15 mL 12/20/24 03/17/25 Rx mL) subcutaneous pen (Lantus Solostar U-100 Insulin) blood sugar diagnostic (OneTouch #300 ea 02/17/25 Rx Verio test strips) clotrimazole 1 % topical cream 1 applic topical BID PRN flare 03/17/25 03/17/25 History docusate sodium 100 mg capsule 100 mg PO DAILY PRN Constipation 03/17/25 03/17/25 History dulaglutide 0.75 mg/0.5 mL 0.75 mg subcut WK 03/17/25 03/17/25 History subcutaneous pen injector (Trulicity) levothyroxine 25 mcg tablet 25 mcg PO DAILYBB 03/17/25 03/17/25 History ondansetron HCl 4 mg tablet 4 mg PO Q6H PRN Nausea And Vomiting 03/17/25 03/17/25 History zinc oxide 16 %-40 % topical 1 ea topical TID PRN Flare 03/17/25 03/17/25 History ointment Past Med/Surg History Problem List Acute hyponatremia (Acute) Atrial fibrillation with rapid ventricular response (Acute) New onset a-fib (Acute) Stroke-like symptoms (Acute) Hyponatremia New onset a-fib Stroke-like symptom Depression Decubitus ulcer Community acquired pneumonia of right lower lobe of lung Severe muscle deconditioning ESRD (end stage renal disease) Gait instability Balance problem Medicare annual wellness visit, subsequent End-stage renal disease on hemodialysis Right shoulder pain Vitamin B12 deficiency Ischemic cardiomyopathy Coronary artery disease Hypertensive CKD, ESRD on dialysis Prerenal azotemia Mass of right kidney Nausea Poorly controlled type 1 diabetes mellitus Hypothyroidism Hypertension Hyperlipidemia Diabetes Acute kidney injury (Acute) Severe hypertension (Chronic) CKD stage 4 due to type 2 diabetes mellitus Hip pain Lumbar stenosis with neurogenic claudication Medical History Peritoneal dialysis adequacy testing Pneumonia C. difficile colitis Surgical History History of nasal polypectomy History of dilation and curettage History of cholecystectomy History of delivery Family History Mother Heart disease Hypertension Myocardial infarction Father Cancer Denies family history of Ovarian cancer Prostate cancer Breast cancer Colorectal cancer Social History Smoking Status: Never smoker Second Hand Exposure: No; Do You Dip or Chew Tobacco: No; Tobacco Cessation Education Requested by Patient: No Hx Alcohol Use: No Hx Substance Use: No Preferred Language: Syriac Communication Ability: Impaired Visual Impairment: Partially Limited Hearing Ability: Normal Canvas Goods Supervisor Required: No Beliefs That Will Affect Care: None marital status: Current Living Situation: Spouse 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al status: retired 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 How many Children do You have: 2 Other Information That Helps Us Care for You: No Feels Safe at Home: Yes Safety Concerns: Feels Safe At This Time Childhood Exposure to Second-Hand Smoke: Yes Diet: low carbohydrate, low salt and regular caffeine: Yes during the past year weight has: remained stable Dental Care, Regularly: No Physical Activity Frequency: Does not Exercise Seatbelt Use: sometimes Sunscreen Use: Yes Do you think of yourself as: straight/heterosexual Gender Identity: Female Assistive Devices: Glasses, Walker and Wheelchair Review of Systems Review of Systems: All systems reviewed & are unremarkable except as noted in HPI & below Physical Exam Constitutional: WD/WN, vitals as above Eyes: PERRL, conjunctivae normal, anicteric sclerae Respiratory: normal respiratory effort, lungs clear to auscultation Cardiovascular: Rate/Rhythm: + tachycardic and + irregularly irregular Extremities: no edema Gastrointestinal (Abdomen): normal bowel sounds, soft, nontender, no hepatosplenomegaly Musculoskeletal: Head/Neck/Chest: normocephalic and head atraumatic Extremities: extremities normal to inspection Skin: no rashes, warm and dry Neurologic: PERRL, EOMI, accommodation nl, no face palsy, no dysarthria CN's II-XI intact bilaterally Speech / Cognition: + abnormal speech Motor/Sensory: no pronator drift and no sensory deficit Cranial Nerves: normal facial strength (strength normal ; right-sided facial droop present) Coordination: normal [id number] test Psychiatric: A+Ox3, euthymic affect Results & Data Results & Data Vital Signs (Past 12 Hours) Vital Signs Temp Pulse Pulse Resp BP BP Pulse Ox 03/17/25 19:30 105 H 20 131/82 97 03/17/25 19:10 128 H 116/80 03/17/25 18:19 110 H 18 135/81 97 03/17/25 18:03 107 H 22 99 03/17/25 18:01 165/93 H 03/17/25 18:01 165/93 H 03/17/25 18:01 165/93 H 03/17/25 18:00 109 H 25 H 97 03/17/25 17:45 111 H 20 03/17/25 17:26 152 H 03/17/25 17:20 164/90 H 03/17/25 16:57 110 H 18 92 03/17/25 16:57 03/17/25 16:54 36.4 C L 112 H 18 137/93 96 03/17/25 16:49 155 H 20 164/90 H 96 03/17/25 16:49 O2 Del Method 03/17/25 19:30 Room Air 03/17/25 19:10 03/17/25 18:19 03/17/25 18:03 03/17/25 18:01 03/17/25 18:01 03/17/25 18:01 03/17/25 18:00 03/17/25 17:45 03/17/25 17:26 03/17/25 17:20 03/17/25 16:57 Room Air 03/17/25 16:57 Room Air 03/17/25 16:54 Room Air 03/17/25 16:49 03/17/25 16:49 Room Air Laboratory Results Laboratory Results WBC 11.05 K/ul (4.8-10.8) H 03/17/25 17:19 RBC 4.33 M/uL (4.20-5.40) 03/17/25 17:19 Hgb 14.2 g/dl (12.0-16.0) 03/17/25 17:19 POC Hgb 15.3 g/dl (12.0-16.0) 03/17/25 17:50 Hct 42.0 % (37.0-47.0) 03/17/25 17:19 POC Hct 45 % (37-47) 03/17/25 17:50 MCV 97.0 fL (80.0-100.0) 03/17/25 17:19 MCH 32.8 pg (25.0-34.0) 03/17/25 17:19 MCHC 33.8 g/dL (32.0-36.0) 03/17/25 17:19 RDW Std Deviation 49.9 fL (36.4-46.3) H 03/17/25 17:19 RDW Coeff of Darrian 14.0 % (11.5-14.5) 03/17/25 17:19 Plt Count 196 K/uL (130-400) 03/17/25 17:19 MPV 10.8 fL (9.4-12.4) 03/17/25 17:19 PT 10.9 Seconds (9.0-12.0) 03/17/25 17:19 INR 1.0 (0.9-1.1) 03/17/25 17:19 APTT 26 Seconds (21-31) 03/17/25 17:19 PTT Ratio 1.0 03/17/25 17:19 Plt Func Collagen/Epi 94 Seconds (80-184) 03/17/25 23:01 POC Sodium 129 mmol/L (135-144) L 03/17/25 17:50 Sodium 129 mmol/L (136-145) L 03/17/25 23:01 POC Potassium 4.2 mmol/L (3.3-5.0) 03/17/25 17:50 Potassium 4.0 mmol/L (3.5-5.1) 03/17/25 23:01 POC Chloride 90 mmol/L (101-112) L 03/17/25 17:50 Chloride 93 mmol/L (98-107) L 03/17/25 23:01 Carbon Dioxide 25 mmol/L (21-32) 03/17/25 23:01 POC Total CO2 25 mmol/L (24-31) 03/17/25 17:50 Anion Gap 11 (3-11) 03/17/25 23:01 POC Anion Gap 19.0 mmol/L (16-25) 03/17/25 17:50 POC BUN 40 mg/dl (7-18) H 03/17/25 17:50 BUN 44 mg/dl (6-23) H 03/17/25 23:01 Creatinine 9.48 mg/dl (0.6-1.2) H* 03/17/25 23:01 POC Creatinine 9.7 mg/dl (0.6-1.3) H* 03/17/25 17:50 Est Cr Clr Drug Dosing 7.4 ml/min 03/17/25 23:01 eGFR 4.10 03/17/25 23:01 BUN/Creatinine Ratio 4.6 (10-20) L 03/17/25 23:01 Glucose 103 mg/dl (70-99(Fasting)) H 03/17/25 23:01 POC Glucose 117 mg/dl (70-99) H 03/17/25 21:15 POC Glucose (other) 173 mg/dl (70-99) H 03/17/25 17:50 Calcium 9.3 mg/dl (8.6-10.3) 03/17/25 23:01 POC Ioniz Calcium Mauro 1.07 mmol/l (1.12-1.32) L 03/17/25 17:50 Magnesium 2.4 mg/dl (1.7-2.4) 03/17/25 17:19 Total Bilirubin 0.5 mg/dl (0.2-1.0) 03/17/25 17:19 AST 14 U/L (13-39) 03/17/25 17:19 ALT 19 U/L (7-52) 03/17/25 17:19 Alkaline Phosphatase 108 U/L (34-104) H 03/17/25 17:19 Total Protein 7.1 gm/dl (6.0-8.3) 03/17/25 17:19 Albumin 3.7 gm/dl (3.4-5.0) 03/17/25 17:19 Globulin 3.4 gm/dl (2.5-4.0) 03/17/25 17:19 Albumin/Globulin Ratio 1.1 (0.9-2) 03/17/25 17:19 Nasal Screen MRSA (PCR) Negative (Negative) 03/17/25 22:48 Impressions Chest X-Ray 03/17/25 16:57 Chest radiograph, one view History: Stroke alert Comparison: None Findings: Single AP view of the chest performed. No focal consolidation or pleural effusion. No pneumothorax. The cardiomediastinal silhouette is within normal limits. Normal pulmonary vascularity. No evidence for lymphadenopathy. No visualized bony or soft tissue abnormality. Impression: Normal chest radiograph Electronically signed by Arun Chen 03-17-2025 7:[address] 03/17/25 16:57 Clinical History: Possible stroke Technique: Axial computed tomography images were obtained of the brain from the vertex to the skull base without intravenous contrast. Findings: There is no sign of intracranial hemorrhage. There is normal estrada-white matter differentiation with no sign of acute or old infarction. No midline shift or other form of herniation is identified. There is no hydrocephalus. No obvious mass lesion is seen on this noncontrast examination. There is fluid in the left sphenoid sinus. The mastoid air cells appear clear Impression: 1. Normal-appearing brain 2. Sphenoid sinusitis These findings were discussed with Dr. Coker at 5:31 PM and 03/17/2025 Electronically signed by Tramaine Chiu 03-17-2025 5:34 PM Head CTA 03/17/25 16:58 Clinical History: Possible stroke Technique: Axial computed tomography images were obtained of the brain after the administration of intravenous contrast according to the CT angiogram protocol Findings: There is calcified plaque within the cavernous and supraclinoid segments of the internal carotid arteries bilaterally, with severe stenoses. There appears to be near occlusion No definite stenosis or aneurysm is seen of the anterior, middle, or posterior cerebral artery circulations. The basilar artery is patent Impression: 1. Severe stenoses of the distal internal carotid arteries bilaterally, just before their bifurcation, with near occlusion 2. No other definite stenosis or aneurysm of the intracranial arteries These findings were discussed with Dr. Coker at 5:31 PM and 03/17/2025 Electronically signed by Tramaine Chiu 03-17-2025 5:38 PM Neck CTA 03/17/25 16:58 Clinical History: Possible stroke Technique: Axial computed tomography images were obtained of the neck after the administration of intravenous contrast according to the CT angiogram protocol Findings: No stenosis is seen of the common carotid arteries bilaterally. There is a severe stenosis of the right carotid bulb and proximal right internal carotid artery with 70-80% diameter narrowing. There is atherosclerotic plaque in the left carotid bulb and proximal left internal carotid artery, with less than 30% diameter narrowing. There is a mild stenosis at the origin of the left external carotid artery There is a severe stenosis of the origin of the right vertebral artery. There is a severe stenosis of the distal right vertebral artery. There is a severe stenosis of the distal left vertebral artery also. The visualized thoracic aorta appears unremarkable. There is extensive coronary atherosclerosis. There is a mild stenosis of the proximal left subclavian artery There is multilevel degenerative disc disease and osteoarthritis of the cervical spine. There is partial opacification of the mastoid air cells bilaterally. There is a small calcified nodule in the left thyroid lobe Impression: 1. 70-80% stenosis of the right carotid bulb and proximal right ICA 2. Severe stenoses of the origin of the right vertebral artery and of the distal vertebral arteries bilaterally 3. Mild stenosis of the proximal left subclavian artery 4. Mild stenosis at the proximal left ECA 5. Partial opacification of the mastoid air cells bilaterally, which may be due to inflammatory mastoiditis 6. Small calcified thyroid nodule. A follow-up thyroid ultrasound could be obtained ACT 112: Positive. There are findings on this exam that require communication between the performing entity and the patient following Patient Test Result Information Act ([place] ACT 112) guidelines. Electronically signed by Tramaine Chiu 03-17-2025 5:44 PM Brain MRI 09/05/25 00:40 EXAM: MR brain wo con CLINICAL HISTORY: stroke-like sx TECHNIQUE: MRI of the brain was performed without contrast with multiplanar sequences obtained. COMPARISON: Comparison is made with prior imaging studies 03/17/2025. FINDINGS: Brain Parenchyma: No evidence of acute infarction or hemorrhage. Bilateral scattered foci of altered signal intensity are noted, appearing hyperintense on T2 and FLAIR, showing no diffusion restriction. Suggestive of mild chronic microvascular ischemic changes. Normal estrada-white matter differentiation. No mass lesions or focal cortical abnormalities identified. Ventricles and Sulci: Normal size and configuration of the lateral ventricles, third ventricle, and fourth ventricle. No evidence of hydrocephalus or ventriculomegaly. Prominent intra- and extraaxial CSF spaces Posterior Fossa: Cerebellum and brainstem appear normal without evidence of mass lesions or signal abnormalities. Cranial Nerves: Normal course and appearance of cranial nerves identified. Vessels: No evidence of vascular malformations or aneurysms. Intracranial arteries and veins appear normal without evidence of stenosis or occlusion. Orbits and Skull Base: Orbits and skull base structures are normal without evidence of abnormalities. Bilateral mastoiditis. Bilateral maxillary and sphenoid sinusitis. IMPRESSION: No acute ischemic insult is noted. Mild chronic microvascular ischemic changes. Age-related atrophy Rest of the findings are described above. Electronically signed by Fletcher Zimmerman 03-18-2025 02:12 AM Supervising Physician Co-Signing Physician Notes Patient seen and examined, chart reviewed, case discussed with Dr. Velázquez and I agree with the assessment and plan as above. In brief, patient is a 69yo female with history of CAD, HTN presenting with waxing and waning right sided facial droop, dysarthria, RUE weakness which began around 11:00. Patient is on Plavix daily On exam she is resting comfortably - does have right sided facial droop, some dysarthria and RUE weakness +S1/S2, irregular, 110 bpm on exam by palpation Lungs CTA Abd soft, NT/ND, PD access present with no bleeding/drainage/erythema Labs and images reviewed [id number] CTA as above - significant bilateral carotid artery stenosis Assessment/Plan - concern for cerebral hypoperfusion in setting of severe stenosis of the distal ICAs bilaterally with near occlusion. Possible low BP and atrial fibrillation playing role with decreased CO. Patient's waxing and waning symptoms not clearly linked with HR or BP levels. Spoke again with Stroke Neurology from [facility] [place] As above, will continue ASA. Will initiate Brillinta as second antiplatelet agent with 180mg load now then 90mg BID. Initiate high dose Atorvastatin 80mg daily. Will check platelet activity panel. Keep HOB flat Maintain blood pressure - goal 140-160 if possible. Patient with low blood pressure at baseline. Will keep HOB flat, provide NSS bolus and Midodrine 10mg po now and TID Vascular surgery consultation appreciated Neurology consultation appreciated Nephrology consultation appreciated - no PD today Remainder as above
[2025-03-17] MEDS ORDERED: GLUCOSE 10 TAB/TUBE PO PRN (21:57)
[2025-03-17] MEDS ORDERED: NITROGLYCERIN SL 0.4 MG/TAB TAB SL PRN (21:57)
[2025-03-17] MEDS ORDERED: MELATONIN 3 MG TAB PO PRN (21:57)
[2025-03-17] MEDS ORDERED: PHARMACIST DISCHARGE MED REC CONSULT PRN (21:57)
[2025-03-17] MEDS ORDERED: CARBOHYDRATES FOR HYPOGLYCEMIA PO PRN (21:57)
[2025-03-17] MEDS ORDERED: DEXTROSE 50% 50 ML SYRINGE IV PRN (21:57)
[2025-03-17] MEDS ORDERED: GLUCAGON FOR INJ 1 MG VIAL SQ PRN (21:57)
[2025-03-17] MEDS ORDERED: POLYETHYLENE (MIRALAX) 17 GM PACK PO PRN (21:57)
[2025-03-17] MEDS ORDERED: GLUCOSE 40% GEL 15 GM TUBE PO PRN (21:57)
[2025-03-17] MEDS: SODIUM CHLORIDE 0.9% 1,000 ML IV ONE (22:19)
[2025-03-17] MEDS: TICAGRELOR 90 MG TAB PO STA (22:42)
[2025-03-17] MEDS: CALCIUM GLUCONATE 1,000 MG/60 ML BAG IV STA (22:47)
[2025-03-17] MEDS: SODIUM CHLORIDE 0.9% 1,000 ML IV SCH (23:01)
[2025-03-17 23:59] LABS: Anion Gap 11.0 (3-11); Blood Urea Nitrogen 44.0 mg/dl (6-23); Calcium 9.3 mg/dl (8.6-10.3); Carbon Dioxide 25.0 mmol/L (21-32); Chloride 93.0 mmol/L (98-107); Creatinine Clr Calc Pharmacy 7.4 ml/min; Glucose 103.0 mg/dl (70-99(Fasting)); Potassium 4.0 mmol/L (3.5-5.1); Sodium 129.0 mmol/L (136-145)
[2025-03-18] MEDS: MIDODRINE HCL 10 MG TAB PO STA (00:21)
[2025-03-18] MEDS: ACETAMINOPHEN 1,000 MG/100 ML VIAL IV PRN (01:34)
--- NOTE | 2025-03-18 02:12 | Magnetic Resonance Report ---
EXAM: MR brain wo con CLINICAL HISTORY: stroke-like sx TECHNIQUE: MRI of the brain was performed without contrast with multiplanar sequences obtained. COMPARISON: Comparison is made with prior imaging studies 03/17/2025. FINDINGS: Brain Parenchyma: No evidence of acute infarction or hemorrhage. Bilateral scattered foci of altered signal intensity are noted, appearing hyperintense on T2 and FLAIR, showing no diffusion restriction. Suggestive of mild chronic microvascular ischemic changes. Normal walker-white matter differentiation. No mass lesions or focal cortical abnormalities identified. Ventricles and Sulci: Normal size and configuration of the lateral ventricles, third ventricle, and fourth ventricle. No evidence of hydrocephalus or ventriculomegaly. Prominent intra- and extraaxial CSF spaces Posterior Fossa: Cerebellum and brainstem appear normal without evidence of mass lesions or signal abnormalities. Cranial Nerves: Normal course and appearance of cranial nerves identified. Vessels: No evidence of vascular malformations or aneurysms. Intracranial arteries and veins appear normal without evidence of stenosis or occlusion. Orbits and Skull Base: Orbits and skull base structures are normal without evidence of abnormalities. Bilateral mastoiditis. Bilateral maxillary and sphenoid sinusitis. IMPRESSION: No acute ischemic insult is noted. Mild chronic microvascular ischemic changes. Age-related atrophy Rest of the findings are described above. Electronically signed by Fletcher Zimmerman 03-18-2025 02:12 AM
[2025-03-18] MEDS: SODIUM CHLORIDE 0.9% 250 ML IV ONE (02:51)
--- NOTE | 2025-03-18 02:55 | Billing Data ---
Date of Service March 17, 2025 Coding Level of Care Code 98068 INT INP/OBS CARE
[2025-03-18 06:09] LABS: Hematocrit (blood only) 38.6 % (37.0-47.0); Hemoglobin 12.9 g/dl (12.0-16.0); Immature Granulocytes # (auto) 0.24 K/uL (0.01-0.20); Immature Granulocytes % (auto) 2.2 %; Mean Corpuscular Hemoglobin 32.4 pg (25.0-34.0); Mean Corpuscular Volume 97.0 fL (80.0-100.0); Platelet Count 179 K/uL (130-400); RDW Standard Deviation 49.9 fL (36.4-46.3); Red Blood Count 3.98 M/uL (4.20-5.40); White Blood Count 10.96 K/ul (4.8-10.8)
[2025-03-18 06:22] LABS: Anion Gap 13.0 (3-11); Calcium 8.6 mg/dl (8.6-10.3); Carbon Dioxide 20.0 mmol/L (21-32); Chloride 96.0 mmol/L (98-107); Potassium 3.6 mmol/L (3.5-5.1); Sodium 129.0 mmol/L (136-145)
[2025-03-18 06:30] LABS: Blood Urea Nitrogen 45.0 mg/dl (6-23); Cholesterol 117.0 mg/dl (0-200); Creatinine Clr Calc Pharmacy 7.8 ml/min; Glucose 89.0 mg/dl (70-99(Fasting)); HDL Cholesterol 46.0 mg/dl; Triglycerides 98.0 mg/dl (0-150)
[2025-03-18] MEDS: LIDOCAINE 5% 1 PATCH TD STA (06:37)
[2025-03-18] MEDS: LEVOTHYROXINE SODIUM 25 MCG TABLET PO SCH (06:45)
[2025-03-18 07:27] LABS: Hemoglobin A1C 8.8 % (4.5-5.6)
[2025-03-18] MEDS: MIDODRINE HCL 10 MG TAB PO SCH (07:50)
[2025-03-18] MEDS: ASPIRIN 81 MG ECTAB PO SCH (07:50)
[2025-03-18] MEDS: ATORVASTATIN 40 MG TAB PO SCH (07:50)
[2025-03-18] MEDS: INSULIN ASPART PER UNIT CHARGE SC SCH (07:57)
--- NOTE | 2025-03-18 09:20 | Vascular Surgery Consultation ---
Date of Consultation March 18, 2025 Assessment & Plan (1) Carotid stenosis, right: -Reviewed CTA in detail, appears to have significant narrowing right carotid bulb into ICA -current symptoms not definitely pointing to her right carotid stenosis as cause -would benefit from close follow up of her carotid stenosis, and recommend 3 month follow up with carotid duplex -continue aspirin, Brillinta and high dose atorvastatin (2) Vertebral artery stenosis: -severe stenoses noted at origin of right vert along with bilateral distal vertebral stenoses -question as to if this is resulting in cerebral hypoperfusion/VBI, in setting of poor cardiac output (echo with severely reduced LV systolic function) and low BP noted on admission, especially combined with right carotid stenosis -agree with neurology consult to better assess (3) Stroke-like symptoms: -symptoms of intermittent right sided facial drooping, dysarthria, right hand weakness, -no current symptoms at my exam, however reports of intermittent symptoms with sitting up -not completely suggestive of plaque from right carotid stenosis, question as to whether related to hypoperfusion/VBI -echo with no thrombus noted -agree with neurology consult (4) New onset a-fib: -no thrombus noted on echo making cardioembolic even less likely -OK to start anticoagulation from vascular surgery perspective, as nothing acute noted on brain MRI. History of Present Illness Reason for Consultation: carotid stenosis, vertebral artery stenosis, with stroke like symptoms Attending Physician: Gayle Devi DO History of Present Illness Ms. Estrada is a 69 year old female with PMHx significant for CAD s/p stent p lacement x 5 2 years ago (on plavix and asa at home), HTN, hyperlipidemia, DM and ESRD on PD, who was in her normal state of health until yesterday morning when she developed waxing and waning right sided facial drooping, slurred speech and right hand weakness/cramping. Her noted the symptoms shortly before 1pm yesterday afternoon, and noted that they did resolve, however she had a subsequent episode shortly after 2pm and they decided to come to ED to be evaluated. Upon presentation to the ED she was noted to be asymptomatic, however did intermittently develop the same symptoms while being evaluated in the ED, about 5 or 6 times. She was also noted to have new onset afib, with rate of 110s. CTA of the neck demonstrated stenosis at the origin of the right vertebral artery, along with bilateral distal vertebral arteries, as well as right ICA stenosis of 70-80%. Brain MRI did not show any acute pathology. She was given 324mg asa and switched from plavix to Brilinta (loaded with 180mg) upon admission. She denies any similar symptoms before yesterday. Currently she has no difficulty speaking, or new onset weakness (has chronic left leg weakness for which she is getting PT for). She also denies any new vision problems/loss of vision, headache, dizziness, nausea or vomiting. She denies feeling any palpitations or having chest pain. She was able to drink water this morning without any difficulty swallowing, without a straw. She has no family history of stroke that she is aware of. She does have family history of AR and CAD. She is a never smoker. She wears glasses and uses wheelchair and walker for ambulation at this time. Allergies Allergy/AdvReac Type Severity Reaction Status Date / Time codeine Allergy Unknown SEVERE Verified 03/17/25 18:21 NAUSEA, VOMITING, "ROOM SPINS" tramadol AdvReac Intermediate Vomiting Verified 03/17/25 18:21 acetaminophen [From Endocet] AdvReac Verified 03/17/25 18:21 homatropine AdvReac Verified 03/17/25 18:21 [From Hycodan (with homatropin)] hydrocodone AdvReac Verified 03/17/25 18:21 [From Hycodan (with homatropin)] oxycodone [From Endocet] AdvReac Verified 03/17/25 18:21 atorvastatin AdvReac myalgias Uncoded 03/17/25 18:21 legs Home Medications Medication Instructions Recorded Confirmed Type blood glucose control, normal #1 ea 05/28/22 01/07/25 Rx (OneTouch Verio Mid Control solution) blood-glucose meter (OneTouch #1 ea 05/28/22 01/07/25 Rx Verio Flex Meter) clopidogrel 75 mg tablet 75 mg PO QAM 05/02/23 03/17/25 History pen needle, diabetic 31 gauge x #100 ea 06/25/23 01/07/25 Rx 1/4" (1st Tier Unifine Pentips Plus) vitamin B complex-vitamin C-folic 1 tab PO QAM 09/09/23 03/17/25 History acid 0.8 mg tablet (Radha-Heriberto) polyethylene glycol 3350 17 17 g PO DAILY PRN constipation 03/09/24 03/17/25 Rx gram/dose oral powder (Miralax) #238 grams cholecalciferol (vitamin D3) 1,250 50,000 unit PO MONTHLY 09/07/24 03/17/25 History mcg (50,000 unit) capsule insulin glargine 100 unit/mL (3 30 unit (0.3 mL) subcut BID #15 mL 12/20/24 03/17/25 Rx mL) subcutaneous pen (Lantus Solostar U-100 Insulin) blood sugar diagnostic (OneTouch #300 ea 02/17/25 Rx Verio test strips) clotrimazole 1 % topical cream 1 applic topical BID PRN flare 03/17/25 03/17/25 History docusate sodium 100 mg capsule 100 mg PO DAILY PRN Constipation 03/17/25 03/17/25 History dulaglutide 0.75 mg/0.5 mL 0.75 mg subcut WK 03/17/25 03/17/25 History subcutaneous pen injector (Trulicity) levothyroxine 25 mcg tablet 25 mcg PO DAILYBB 03/17/25 03/17/25 History ondansetron HCl 4 mg tablet 4 mg PO Q6H PRN Nausea And Vomiting 03/17/25 03/17/25 History zinc oxide 16 %-40 % topical 1 ea topical TID PRN Flare 03/17/25 03/17/25 History ointment Patient History Medical History Peritoneal dialysis adequacy testing Pneumonia C. difficile colitis Surgical History History of nasal polypectomy History of dilation and curettage History of cholecystectomy History of delivery Family History Mother Heart disease Hypertension Myocardial infarction Father Cancer Denies family history of Ovarian cancer Prostate cancer Breast cancer Colorectal cancer Social History Smoking Status: Never smoker Second Hand Exposure: No; Do You Dip or Chew Tobacco: No; Tobacco Cessation Education Requested by Patient: No Hx Alcohol Use: No Hx Substance Use: No Preferred Language: Emirati Communication Ability: Effective Visual Impairment: Partially Limited Hearing Ability: Normal House Builder Required: No Beliefs That Will Affect Care: None marital status: Current Living Situation: Spouse 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al status: retired 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 How many Children do You have: 2 Other Information That Helps Us Care for You: No Feels Safe at Home: Yes Safety Concerns: Feels Safe At This Time Childhood Exposure to Second-Hand Smoke: Yes Diet: low carbohydrate, low salt and regular caffeine: Yes during the past year weight has: remained stable Dental Care, Regularly: No Physical Activity Frequency: Does not Exercise Seatbelt Use: sometimes Sunscreen Use: Yes Do you think of yourself as: straight/heterosexual Gender Identity: Female Assistive Devices: Walker and Wheelchair Review of Systems Constitutional: denies fevers, chills, fatigue Eyes: see HPI Ear, Nose, Mouth, Throat: no dysphagia or difficulty swallowing Respiratory: no shortness of breath, coughing or wheezing Cardiovascular: Additional Comments: see HPI Gastrointestinal: denies nausea, vomiting, diarrhea, abdominal pain Genitourinary: ESRD on PD, does not make urine Musculoskeletal: positive for chronic left leg weakness, undergoing PT. Denies any other extremity weakness or paresthesias Neurologic: see HPI. Hematologic / Lymphatic: no easy bleeding or bruising, no history of clotting disorders Physical Exam Constitutional: pleasant female, lying in bed, in no distress, talkative Eyes: PERRLA, EOMI Neck: supple, trachea midline, no tenderness Respiratory: no accessory muscle use or retractions, CTAB Cardiovascular: slightly irregular rhythm, HR in 70s. No carotid bruits appreciated Radial pulses +2 DP pulses +2 Gastrointestinal (Abdomen): non-distended, no bruits, bowel sounds present, no tenderness to palpation. Musculoskeletal: strength equal in upper extremities bilaterally. Left leg slightly weaker than right leg. Neurologic: AA&O x 3, CN II-XII grossly intact, speech is clear, no facial drooping noted on exam, tongue midline, follows all commands. Results & Data Vital Signs (Past 12 Hours) Vital Signs Temp Pulse Pulse Resp BP Pulse Ox O2 Del Method 03/18/25 07:27 36.7 C 76 16 110/74 95 Room Air 03/18/25 03:44 36.3 C L 65 18 112/69 95 Room Air 03/18/25 02:40 36.7 C 75 18 108/70 97 Room Air 03/18/25 01:30 83 121/78 03/18/25 00:39 81 99/66 L 03/17/25 23:36 112/71 03/17/25 23:19 78 113/73 03/17/25 22:21 73 95/65 L 03/17/25 22:00 73 03/17/25 21:57 36.6 C 90 18 94/63 L 97 Room Air 03/17/25 21:18 89 18 120/80 97 Room Air Laboratory Results 03/18/25 03/18/25 03/17/25 07:55 05:50 23:01 WBC 10.96 H RBC 3.98 L Hgb 12.9 POC Hgb Hct 38.6 POC Hct MCV 97.0 MCH 32.4 MCHC 33.4 RDW Std Deviation 49.9 H RDW Coeff of Darrian 14.3 Plt Count 179 MPV 11.0 Immature Gran % (Auto) 2.2 Neut % (Auto) 69.2 Lymph % (Auto) 15.2 Alfalfa % (Auto) 9.6 Eos % (Auto) 2.5 Baso % (Auto) 1.3 Neut # (Auto) 7.59 H Lymph # (Auto) 1.67 Alfalfa # (Auto) 1.05 H Eos # (Auto) 0.27 Baso # (Auto) 0.14 Immature Gran # (Auto) 0.24 H PT INR APTT PTT Ratio Plt Func Collagen/Epi 94 POC Sodium Sodium 129 L 129 L POC Potassium Potassium 3.6 4.0 POC Chloride Chloride 96 L 93 L Carbon Dioxide 20 L 25 POC Total CO2 Anion Gap 13 H 11 POC Anion Gap POC BUN BUN 45 H 44 H Creatinine 9.14 H* D 9.48 H* POC Creatinine Est Cr Clr Drug Dosing 7.8 7.4 eGFR 4.29 4.10 BUN/Creatinine Ratio 4.9 L 4.6 L Glucose 89 103 H POC Glucose 82 POC Glucose (other) Estimat Average Glucose 206 Hemoglobin A1c 8.8 H Calcium 8.6 9.3 POC Ioniz Calcium Mauro Magnesium Total Bilirubin AST ALT Alkaline Phosphatase Total Protein Albumin Globulin Albumin/Globulin Ratio Triglycerides 98 Cholesterol 117 LDL Cholesterol, Calc 51 VLDL Cholesterol, Calc 20 HDL Cholesterol 46 Cholesterol/HDL Ratio 2.5 Nasal Screen MRSA (PCR) 03/17/25 03/17/25 03/17/25 22:48 21:15 17:50 WBC RBC Hgb POC Hgb 15.3 Hct POC Hct 45 MCV MCH MCHC RDW Std Deviation RDW Coeff of Darrian Plt Count MPV Immature Gran % (Auto) Neut % (Auto) Lymph % (Auto) Alfalfa % (Auto) Eos % (Auto) Baso % (Auto) Neut # (Auto) Lymph # (Auto) Alfalfa # (Auto) Eos # (Auto) Baso # (Auto) Immature Gran # (Auto) PT INR APTT PTT Ratio Plt Func Collagen/Epi POC Sodium 129 L Sodium POC Potassium 4.2 Potassium POC Chloride 90 L Chloride Carbon Dioxide POC Total CO2 25 Anion Gap POC Anion Gap 19.0 POC BUN 40 H BUN Creatinine POC Creatinine 9.7 H* Est Cr Clr Drug Dosing eGFR BUN/Creatinine Ratio Glucose POC Glucose 117 H POC Glucose (other) 173 H Estimat Average Glucose Hemoglobin A1c Calcium POC Ioniz Calcium Mauro 1.07 L Magnesium Total Bilirubin AST ALT Alkaline Phosphatase Total Protein Albumin Globulin Albumin/Globulin Ratio Triglycerides Cholesterol LDL Cholesterol, Calc VLDL Cholesterol, Calc HDL Cholesterol Cholesterol/HDL Ratio Nasal Screen MRSA (PCR) Negative 03/17/25 03/17/25 17:22 17:19 WBC 11.05 H RBC 4.33 Hgb 14.2 POC Hgb Hct 42.0 POC Hct MCV 97.0 MCH 32.8 MCHC 33.8 RDW Std Deviation 49.9 H RDW Coeff of Darrian 14.0 Plt Count 196 MPV 10.8 Immature Gran % (Auto) Neut % (Auto) Lymph % (Auto) Alfalfa % (Auto) Eos % (Auto) Baso % (Auto) Neut # (Auto) Lymph # (Auto) Alfalfa # (Auto) Eos # (Auto) Baso # (Auto) Immature Gran # (Auto) PT 10.9 INR 1.0 APTT 26 PTT Ratio 1.0 Plt Func Collagen/Epi POC Sodium Sodium 128 L POC Potassium Potassium 4.2 POC Chloride Chloride 88 L Carbon Dioxide 26 POC Total CO2 Anion Gap 14 H POC Anion Gap POC BUN BUN 42 H Creatinine 9.33 H* POC Creatinine Est Cr Clr Drug Dosing 7.5 eGFR 4.18 BUN/Creatinine Ratio 4.5 L Glucose 184 H POC Glucose 185 H POC Glucose (other) Estimat Average Glucose Hemoglobin A1c Calcium 9.5 POC Ioniz Calcium Mauro Magnesium 2.4 Total Bilirubin 0.5 AST 14 ALT 19 Alkaline Phosphatase 108 H Total Protein 7.1 Albumin 3.7 Globulin 3.4 Albumin/Globulin Ratio 1.1 Triglycerides Cholesterol LDL Cholesterol, Calc VLDL Cholesterol, Calc HDL Cholesterol Cholesterol/HDL Ratio Nasal Screen MRSA (PCR) Diagnostic Findings Chest X-Ray 03/17/25 16:57 Chest radiograph, one view History: Stroke alert Comparison: None Findings: Single AP view of the chest performed. No focal consolidation or pleural effusion. No pneumothorax. The cardiomediastinal silhouette is within normal limits. Normal pulmonary vascularity. No evidence for lymphadenopathy. No visualized bony or soft tissue abnormality. Impression: Normal chest radiograph Electronically signed by Arun Chen 03-17-2025 7:[address] 03/17/25 16:57 Clinical History: Possible stroke Technique: Axial computed tomography images were obtained of the brain from the vertex to the skull base without intravenous contrast. Findings: There is no sign of intracranial hemorrhage. There is normal estrada-white matter differentiation with no sign of acute or old infarction. No midline shift or other form of herniation is identified. There is no hydrocephalus. No obvious mass lesion is seen on this noncontrast examination. There is fluid in the left sphenoid sinus. The mastoid air cells appear clear Impression: 1. Normal-appearing brain 2. Sphenoid sinusitis These findings were discussed with Dr. Coker at 5:31 PM and 03/17/2025 Electronically signed by Tramaine Chiu 03-17-2025 5:34 PM Head CTA 03/17/25 16:58 Clinical History: Possible stroke Technique: Axial computed tomography images were obtained of the brain after the administration of intravenous contrast according to the CT angiogram protocol Findings: There is calcified plaque within the cavernous and supraclinoid segments of the internal carotid arteries bilaterally, with severe stenoses. There appears to be near occlusion No definite stenosis or aneurysm is seen of the anterior, middle, or posterior cerebral artery circulations. The basilar artery is patent Impression: 1. Severe stenoses of the distal internal carotid arteries bilaterally, just before their bifurcation, with near occlusion 2. No other definite stenosis or aneurysm of the intracranial arteries These findings were discussed with Dr. Coker at 5:31 PM and 03/17/2025 Electronically signed by Tramaine Chiu 03-17-2025 5:38 PM Neck CTA 03/17/25 16:58 Clinical History: Possible stroke Technique: Axial computed tomography images were obtained of the neck after the administration of intravenous contrast according to the CT angiogram protocol Findings: No stenosis is seen of the common carotid arteries bilaterally. There is a severe stenosis of the right carotid bulb and proximal right internal carotid artery with 70-80% diameter narrowing. There is atherosclerotic plaque in the left carotid bulb and proximal left internal carotid artery, with less than 30% diameter narrowing. There is a mild stenosis at the origin of the left external carotid artery There is a severe stenosis of the origin of the right vertebral artery. There is a severe stenosis of the distal right vertebral artery. There is a severe stenosis of the distal left vertebral artery also. The visualized thoracic aorta appears unremarkable. There is extensive coronary atherosclerosis. There is a mild stenosis of the proximal left subclavian artery There is multilevel degenerative disc disease and osteoarthritis of the cervical spine. There is partial opacification of the mastoid air cells bilaterally. There is a small calcified nodule in the left thyroid lobe Impression: 1. 70-80% stenosis of the right carotid bulb and proximal right ICA 2. Severe stenoses of the origin of the right vertebral artery and of the distal vertebral arteries bilaterally 3. Mild stenosis of the proximal left subclavian artery 4. Mild stenosis at the proximal left ECA 5. Partial opacification of the mastoid air cells bilaterally, which may be due to inflammatory mastoiditis 6. Small calcified thyroid nodule. A follow-up thyroid ultrasound could be obtained ACT 112: Positive. There are findings on this exam that require communication between the performing entity and the patient following Patient Test Result Information Act ([place] ACT 112) guidelines. Electronically signed by Tramaine Chiu 03-17-2025 5:44 PM Brain MRI 03/18/25 00:40 EXAM: MR brain wo con CLINICAL HISTORY: stroke-like sx TECHNIQUE: MRI of the brain was performed without contrast with multiplanar sequences obtained. COMPARISON: Comparison is made with prior imaging studies 03/17/2025. FINDINGS: Brain Parenchyma: No evidence of acute infarction or hemorrhage. Bilateral scattered foci of altered signal intensity are noted, appearing hyperintense on T2 and FLAIR, showing no diffusion restriction. Suggestive of mild chronic microvascular ischemic changes. Normal estrada-white matter differentiation. No mass lesions or focal cortical abnormalities identified. Ventricles and Sulci: Normal size and configuration of the lateral ventricles, third ventricle, and fourth ventricle. No evidence of hydrocephalus or ventriculomegaly. Prominent intra- and extraaxial CSF spaces Posterior Fossa: Cerebellum and brainstem appear normal without evidence of mass lesions or signal abnormalities. Cranial Nerves: Normal course and appearance of cranial nerves identified. Vessels: No evidence of vascular malformations or aneurysms. Intracranial arteries and veins appear normal without evidence of stenosis or occlusion. Orbits and Skull Base: Orbits and skull base structures are normal without evidence of abnormalities. Bilateral mastoiditis. Bilateral maxillary and sphenoid sinusitis. IMPRESSION: No acute ischemic insult is noted. Mild chronic microvascular ischemic changes. Age-related atrophy Rest of the findings are described above. Electronically signed by Fletcher Zimmerman 03-18-2025 02:12 AM Medications Administered Home Medications Medication Instructions Recorded Confirmed Last Taken blood glucose control, normal #1 ea 05/28/22 01/07/25 Unknown (OneTouch Verio Mid Control solution) blood-glucose meter (OneTouch #1 ea 05/28/22 01/07/25 Unknown Verio Flex Meter) clopidogrel 75 mg tablet 75 mg PO QAM 05/02/23 03/17/25 03/17/25 pen needle, diabetic 31 gauge x #100 ea 06/25/23 01/07/25 Unknown 07/17" (1st Tier Unifine Pentips Plus) vitamin B complex-vitamin C-folic 1 tab PO QAM 09/09/23 03/17/25 03/17/25 acid 0.8 mg tablet (Radha-Heriberto) polyethylene glycol 3350 17 17 g PO DAILY PRN constipation 03/09/24 03/17/25 Unknown gram/dose oral powder (Miralax) #238 grams cholecalciferol (vitamin D3) 1,250 50,000 unit PO MONTHLY 09/07/24 03/17/25 Unknown mcg (50,000 unit) capsule insulin glargine 100 unit/mL (3 30 unit (0.3 mL) subcut BID #15 mL 12/20/24 03/17/25 03/17/25 mL) subcutaneous pen (Lantus Solostar U-100 Insulin) blood sugar diagnostic (OneTouch #300 ea 02/17/25 Unknown Verio test strips) clotrimazole 1 % topical cream 1 applic topical BID PRN flare 03/17/25 03/17/25 Unknown docusate sodium 100 mg capsule 100 mg PO DAILY PRN Constipation 03/17/25 03/17/25 Unknown dulaglutide 0.75 mg/0.5 mL 0.75 mg subcut WK 03/17/25 03/17/25 03/13/25 subcutaneous pen injector (Trulicity) levothyroxine 25 mcg tablet 25 mcg PO DAILYBB 03/17/25 03/17/25 03/17/25 ondansetron HCl 4 mg tablet 4 mg PO Q6H PRN Nausea And Vomiting 03/17/25 03/17/25 Unknown zinc oxide 16 %-40 % topical 1 ea topical TID PRN Flare 03/17/25 03/17/25 Unknown ointment Active Medications Generic Name Dose Route Start Last Admin Trade Name Freq PRN Reason Stop Dose Admin Aspirin 81 mg 03/18/25 09:00 03/18/25 07:50 Aspirin 81 Mg Ectab PO 04/17/25 08:59 81 mg QAM HATTIE Administration Atorvastatin Calcium 80 mg 03/18/25 09:00 03/18/25 07:50 Atorvastatin 40 Mg Tab PO 04/17/25 08:59 80 mg QAM HATTIE Administration Acetaminophen 1,000 mg in 100 mls @ 400 mls/hr 03/18/25 00:38 03/18/25 01:51 Ofirmev IV 03/21/25 00:37 Infused Q8H PRN Infusion Pain or Fever Insulin Aspart 0 units 03/18/25 07:30 03/18/25 07:57 Insulin Aspart Per Unit Charge SC 04/17/25 07:29 Not Given ACHS HATTIE Levothyroxine Sodium 25 mcg 03/18/25 06:30 03/18/25 06:45 Levothyroxine Sodium 25 Mcg Tablet PO 04/17/25 06:29 Not Given DAILYBB HATTIE Midodrine 10 mg 03/18/25 08:00 03/18/25 07:50 Midodrine Hcl 10 Mg Tab PO 04/17/25 07:59 10 mg TID@0800,1200,1700 HATTIE Administration PG Care Time/CCT Total # of Minutes Spent Total Time Spent with Patient: Total time spent is greater than 50% in coordination of care (as documented) at patient's floor/unit and/or counseling patient: [place] [address] INT INP/OBS CARE MIN Patient Type New History Detailed Exam Detailed Medical Decision Making Moderate Complexity Diagnoses Carotid stenosis, right I65.21 Vertebral artery stenosis I65.09 Stroke-like symptoms R29.90 New onset a-fib I48.91
[2025-03-18] MEDS: LANTUS PER UNIT CHARGE SQ SCH (10:04)
--- NOTE | 2025-03-18 10:10 | XCELERA ---
[id number] \\[email or web address]\[id number]
--- NOTE | 2025-03-18 10:19 | Nephrology Consultation ---
Date of Consultation March 18, 2025 Assessment & Plan (1) ESRD (end stage renal disease): ESRD on PD in an anuric patient with fairly high dose /aggressive prescription as OP now w/ new systolic HF -for tonight will do 2.8L fills x 7 w/ 50 min dwells; 1 bag 2.5% and 3 bags 1.5% -daily BMP -hgb is adequate > will avoid ROBBIN for the moment givne concern for stroke (2) Systolic heart failure: suggest [facility] cardiology consultation > pt w/ h/o complex coronary disease w/ new onset systolic HF; may need eval at tertiary care center or other specialized care (3) Stroke-like symptoms: as per primary service adn neurology neuro wants target SBP initially 140s-150s > note primary service starting midodrine History of Present Illness Attending Physician: Gayle Devi DO History of Present Illness 69 y/o F whom I"m asked to see for ESRD on PD was admitted last evening for TIA versus ischemic stroke after presenting with waxing and waning right-sided facial droop dysarthria and right upper extremity weakness. PMH includes STEMI in March 2023 requiring intra-aortic balloon pump and stent placement x5 ([facility] [place] ischemic cardiomyopathy with ejection fraction down to 40% March 2023 and with recovery on October 2023 echocardiogram to EF 55- 59%; ESRD from AT attributed to cardiogenic shock, bilateral psoas abscess, DM2, hypertension, hyperlipidemia, hypothyroid. Noted on arrival to Emergency Department to have atrial fibrillation with rate in the 1 teens. She does peritoneal dialysis under the care of my partner Dr. Trent at [facility] [place]. [facility] PD prescription with a target weight of 115 kilos is 11 hours with 3 L dwells and 50 minute dwell times generally 5 exchanges with a 2 L icodextran dwell by day. Denies any headache, dizziness, N/V, chest pain, SOB during these spells. She is anuric. no abd pain. no palpitations. no cough or orthopnea. no f/c rash or recent acute illness. Patient had 5-6 repeat episodes in the ED last evening w/ slurred speech and also had at least 2 such spells this am. She was given a total of 1.[address] angiography of the neck showed severe bilateral carotid artery and vertebral artery stenosis and no acute intracranial pathology. Brain MRI did not show any acute pathology. She was given 324mg asa and switched from plavix to Brilinta (loaded with 180mg) upon admission. tele stroke consultation recommends target blood pressures of 140s and 150s systolic. TTE notable for severely reduced left ventricular systolic function compared to prior ones. Allergies Allergy/AdvReac Type Severity Reaction Status Date / Time codeine Allergy Unknown SEVERE Verified 03/17/25 18:21 NAUSEA, VOMITING, "ROOM SPINS" tramadol AdvReac Intermediate Vomiting Verified 03/17/25 18:21 acetaminophen [From Endocet] AdvReac Unknown Verified 03/18/25 14:42 atorvastatin AdvReac Muscle Pain Verified 03/18/25 14:51 homatropine AdvReac Unknown Verified 03/18/25 14:42 [From Hycodan (with homatropin)] hydrocodone AdvReac Unknown Verified 03/18/25 14:42 [From Hycodan (with homatropin)] oxycodone [From Endocet] AdvReac Unknown Verified 03/18/25 14:42 Home Medications Medication Instructions Recorded Confirmed Type blood glucose control, normal #1 ea 05/28/22 01/07/25 Rx (OneTouch Verio Mid Control solution) blood-glucose meter (OneTouch #1 ea 05/28/22 01/07/25 Rx Verio Flex Meter) clopidogrel 75 mg tablet 75 mg PO QAM 05/02/23 03/17/25 History pen needle, diabetic 31 gauge x #100 ea 06/25/23 01/07/25 Rx 1/4" (1st Tier Unifine Pentips Plus) vitamin B complex-vitamin C-folic 1 tab PO QAM 09/09/23 03/17/25 History acid 0.8 mg tablet (Radha-Heriberto) polyethylene glycol 3350 17 17 g PO DAILY PRN constipation 03/09/24 03/17/25 Rx gram/dose oral powder (Miralax) #238 grams cholecalciferol (vitamin D3) 1,250 50,000 unit PO MONTHLY 09/07/24 03/17/25 History mcg (50,000 unit) capsule insulin glargine 100 unit/mL (3 30 unit (0.3 mL) subcut BID #15 mL 12/20/24 03/17/25 Rx mL) subcutaneous pen (Lantus Solostar U-100 Insulin) blood sugar diagnostic (MixifyTouch #300 ea 02/17/25 Rx Verio test strips) clotrimazole 1 % topical cream 1 applic topical BID PRN flare 03/17/25 03/17/25 History docusate sodium 100 mg capsule 100 mg PO DAILY PRN Constipation 03/17/25 03/17/25 History dulaglutide 0.75 mg/0.5 mL 0.75 mg subcut WK 03/17/25 03/17/25 History subcutaneous pen injector (Trulicity) levothyroxine 25 mcg tablet 25 mcg PO DAILYBB 03/17/25 03/17/25 History ondansetron HCl 4 mg tablet 4 mg PO Q6H PRN Nausea And Vomiting 03/17/25 03/17/25 History zinc oxide 16 %-40 % topical 1 ea topical TID PRN Flare 03/17/25 03/17/25 History ointment Patient History Medical History Peritoneal dialysis adequacy testing Pneumonia C. difficile colitis Surgical History History of nasal polypectomy History of dilation and curettage History of cholecystectomy History of delivery Family History Mother Heart disease Hypertension Myocardial infarction Father Cancer Denies family history of Ovarian cancer Prostate cancer Breast cancer Colorectal cancer Social History Smoking Status: Never smoker Second Hand Exposure: No; Do You Dip or Chew Tobacco: No; Tobacco Cessation Education Requested by Patient: No Hx Alcohol Use: No Hx Substance Use: No Preferred Language: Danish Communication Ability: Effective Visual Impairment: Partially Limited Hearing Ability: Normal Charge Aide Required: No Beliefs That Will Affect Care: None marital status: Current Living Situation: Spouse 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al status: retired 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 How many Children do You have: 2 Other Information That Helps Us Care for You: No Feels Safe at Home: Yes Safety Concerns: Feels Safe At This Time Childhood Exposure to Second-Hand Smoke: Yes Diet: low carbohydrate, low salt and regular caffeine: Yes during the past year weight has: remained stable Dental Care, Regularly: No Physical Activity Frequency: Does not Exercise Seatbelt Use: sometimes Sunscreen Use: Yes Do you think of yourself as: straight/heterosexual Gender Identity: Female Assistive Devices: Walker and Wheelchair Review of Systems 2 Review of Systems: All systems reviewed & are unremarkable except as noted in HPI & below Physical Exam 2 Constitutional: well developed, well nourished, + obese and cooperative; no acute distress Eyes: EOM intact bilaterally ENMT: Mouth: + dry oral mucous membranes Respiratory: normal respiratory effort Auscultation: + diminished lung sounds Cardiovascular: Rate/Rhythm: regular rate and regular rhythm Extremities: n o edema Gastrointestinal (Abdomen): Inspection/Auscultation: normal bowel sounds and + abdominal surgical drain present (PD catheter) Percussion/Palpation: abdomen soft; abdomen nontender Musculoskeletal: Extremities: strength 5/5 throughout Skin: no rashes, warm and dry Neurologic: higgin[place]am, fluent speech, no tremor Results & Data Vital Signs (Past 12 Hours) Vital Signs Temp Pulse Resp BP Pulse Ox O2 Del Method 03/18/25 07:27 36.7 C 76 16 110/74 95 Room Air 03/18/25 03:44 36.3 C L 65 18 112/69 95 Room Air 03/18/25 02:40 36.7 C 75 18 108/70 97 Room Air 03/18/25 01:30 83 121/78 03/18/25 00:39 81 99/66 L 03/17/25 23:36 112/71 03/17/25 23:19 78 113/73 03/17/25 22:21 73 95/65 L Laboratory Results 03/18/25 05:50 03/18/25 05:50 Diagnostic Findings CTA head/neck showing severe bilateral carotid artery stenoses and vertebral artery stenosis, however no evidence of acute intracranial pathology
[2025-03-18] MEDS: TICAGRELOR 90 MG TAB PO SCH (11:11)
[2025-03-18] MEDS: DOCUSATE SODIUM 100 MG CAP PO PRN (11:48)
--- NOTE | 2025-03-18 12:34 | Cardiology Consultation ---
Date of Consultation March 18, 2025 Assessment & Plan (1) Stroke-like symptoms: (2) Hypotension: (3) Vertebral artery stenosis: (4) Carotid stenosis, right: (5) Chronic heart failure with reduced ejection fraction and diastolic dysfunction: (6) Coronary artery disease: (7) ESRD (end stage renal disease): Plan Complex 69 year old female admitted to [facility] yesterday with stroke like symptoms with slurred speech and facial droop. Head CT negative for acute infarct. Brain MRI negative. She was found to have significant carotid and vertebral artery stenosis. Vascular surgery consulted. Neuro/stroke alert also consulted. Plavix changed to Brilinta with loading dose. Asa 81 mg daily added along with high intensity statin (atorvastatin 80 mg). Patient reports prior myalgias with this and may ultimately need alternative statin vs PCSK9 inhib. She has had recurrent episodes over the last 24 hours, typically exacerbated by standing or sitting upright and possible hypotension/hypoperfusion. Midodrine added at 10 mg TID. (It is unclear whether patient was taking this as outpatient at a lower dose) Due to recurrent symptoms around lunch time today, patient has been ordered repeat brain MRI but not yet completed. Initially thought to have new onset atrial fibrillation on admission, this has been reviewed and found to be NSR with atrial and ventricular ectopy. No atrial fibrillation noted. NO indication for anticoagulation therapy. She was found to have severely reduced LVEF on admission as well. LVEF 20-25% Previously 40%, improving to 55% after medical therapies and prior coronary interventions in 2022. No acute cardiac symptoms. Appers euvolemic. Volume status managed with PD Patient stopped her cardiac meds (metoprolol, entresto vs losartan) due to hypotension over the last few months. It is possible her decline in LV function is due to medication discontinuation vs stress induced cardiomyopathy. If able, would recommend resuming low dose metoprolol succinate 12.5 mg daily if BP tolerates. Hypotension with ESRD/PD -Compression stockings advised History of complex CAD -No anginal complaints -Continue antiplatelet therapy - acceptable to take Brilinta rather than Plavix. Resumed ASA 81 mg daily. Resumed statin -consider resuming metoprolol Further recommendations pending discussion and evaluation with Dr. Pappas. I spent a total of 70 minutes on the date of service in preparation, delivery, and documentation of the care provided to this patient, excluding any time spent in the performance of separately billed services. Keysha Bell PA-C Department of Cardiology, [facility] This chart was completed in part utilizing Speech Voice Recognition Software. Grammatical errors, random word insertions, pronoun errors, and incomplete sentences are an occasional consequence of this system due to software limitat ions, ambient noise, and hardware issues. Any formal questions or concerns about the content, text, or information contained within the body of this dictation should be directly addressed to the provider for clarification. Supervising Physician Co-Signing Physician Notes I have personally performed a history and physical examination on the patient. I have reviewed the advance practitioner's documentation, and I agree with, and take responsibility for the plan of care. 69-year-old female admitted with strokelike symptoms, resting hypotension, orthostatic hypotension. Chronic heart failure medications discontinued include metoprolol, and Entresto. Taking Plavix only prior to admission. Presents with symptoms including intermittent facial droop and slurred speech. Symptoms occur when she was change position from supine to sitting up. No chest pain or shortness of breath. Currently symptomatic at rest. Repeat echocardiogram demonstrating severe LV systolic function. Patient notes mild dyspnea at this time related to missing peritoneal dialysis treatment last evening. No orthopnea or PND. Initial ECG initially thought to be atrial fibrillation, however, on closer review there is no evidence of atrial fibrillation rather, the rhythm is sinus with frequent PACs. CTA of the head and neck demonstrating significant stenosis of the right internal carotid artery, severe stenosis of the right vertebral artery and severe stenosis of the left vertebral artery. Clopidogrel discontinued in favor of aspirin plus Brilinta in the ER. I suspect symptoms related to cerebral hypoperfusion in setting of carotid vascular and cerebrovascular disease with chronic resting hypotension, and orthostatic hypotension. Unfortunately, treatment options are limited due to chronic hypotension. No evidence of atrial fibrillation or LV apical thrombus, therefore, IV anticoagulation is not indicated from a cardiac perspective at this time. Continue telemetry monitoring. Reduced ejection fraction possibly due to to stress-induced event versus lack of GDMT as described above. Patient appears mildly hypervolemic although I suspect this is due to missed peritoneal dialysis treatment. Volume management as per peritoneal dialysis/nephrology. I would like the patient to restart low-dose Toprol-XL 12.5 mg daily as blood pressure allows. Low-dose losartan and or Entresto may be considered if blood pressure improves. Midodrine added by nephrology for blood pressure support. Continue aspirin and Brilinta as recommended by neurology. Vascular surgery following at this time. I spent a total of 40 minutes on the date of service in preparation, delivery, and documentation of the care provided to this patient, excluding any time spent in the performance of separately billed services. Anthony Pappas DO, [facility] History of Present Illness Reason for Consultation: Stroke like symptoms; Arrhythmia on admission; Cardiomypathy; History of CAD Requesting Physician: [place] Hospitalist Attending Physician: Dr. Pappas History of Present Illness Patient is a complex 69 year old female admitted to [facility] with complaints of slurred speach, facial droop noted at home. She was brought to the ER for evaluation and stroke alert called. Tele stroke consult completed which recommended Brain MRI and transition home plavix to Brilinta. She has a complex cardiac history, followed by Serge Mcdaniel. History includes: 1. CAD -STEMI requiring IABP, s/p LAKIA x5 (mRCA, dRCA, mLAD, D1, MCx) 04/10/2023 2. ICM -EF recovered 55-59% 10/2023 -EF 40-44% 03/2023 3. HFrEF 4. ESRD -ATN cardiogenic shock from STEMI on dialysis 5. Hx of B/l psoas abscess 6. HTN 7. HLD 8. T2 DM on insulin 9. Hypothyroidism Last cardio visit in September 2024 and patient was doing well at that time. Patient reports over the next few months, patient had issues with dialysis and hypotension and slowly her cardiac medications were "stopped". Per September 2024 visit - patient was taking Plavix, atorvastatin (discontinued due to myalgias/leg cramps), entresto (and losartan?), amlodipine, and metoprolol. Met oprolol was stopped due to a "bad taste" in her mouth. Amlodipine and entresto (possibly losartan) were discontinued due to hypotension. She reports she now ONLY takes plavix 75 mg daily and none of her other cardiac medications. She was in usual state of health until yesterday when she began to having these spells with intermittent facial droop, slurred speech. Symptoms resolve within a few minutes to hours. Symptoms also improve when laying supine and worsen when sitting up. No chest pain or dyspnea reported. Upon admission, head CT was negative for acute process. Head/neck CTA revealed significant stenosis of the right ICA, severe stenosis of the origin of the right vertebral artery, severe stenosis of the distal right vertebral artery. Severe stenosis of the distal left vertebral artery. Vascular surgery consulted for assistance. Neuro recommended switching patient from Plavix to Brilinta with loading dose. ASA resumed. Atorvastatin also resumed. There was concern regarding atrial fibrillation on admission due to irregularly rhythm and tachycardia. She was treated with one dose metoprolol and HR improved/ectopy improved. Per review of telemetry strips and admission EKG, she was in sinus tach with PAC's/PVC's, NOT atrial fibrillation. No atrial fibrillation on review of telemetry since admission Echo was completed which demonstrated decline in LVEF at 20-25%. she presented with no acute cardiac complaints. No recent chest pain or dyspnea. At time of consult, patient laying supine comfortably. no acute neurologic deficits. She had an episode around lunchtime today with recurrent slurred speech and facial droop. Symptoms slowly resolved. Repeat MRI ordered but not yet done. Symptoms improve with laying supine. She denies acute cardiac complaints. No chest pain or SOB. She notes mild orthopnea currently but reports this is "normal" when she misses her PD sessions, which was not done last night. Allergies Allergy/AdvReac Type Severity Reaction Status Date / Time codeine Allergy Unknown SEVERE Verified 03/17/25 18:21 NAUSEA, VOMITING, "ROOM SPINS" tramadol AdvReac Intermediate Vomiting Verified 03/17/25 18:21 acetaminophen [From Endocet] AdvReac Unknown Verified 03/18/25 14:42 atorvastatin AdvReac Muscle Pain Verified 03/18/25 14:51 homatropine AdvReac Unknown Verified 03/18/25 14:42 [From Hycodan (with homatropin)] hydrocodone AdvReac Unknown Verified 03/18/25 14:42 [From Hycodan (with homatropin)] oxycodone [From Endocet] AdvReac Unknown Verified 03/18/25 14:42 Home Medications Medication Instructions Recorded Confirmed Type blood glucose control, normal #1 ea 05/28/22 01/07/25 Rx (OneTouch Verio Mid Control solution) blood-glucose meter (OneTouch #1 ea 05/28/22 01/07/25 Rx Verio Flex Meter) clopidogrel 75 mg tablet 75 mg PO QAM 05/02/23 03/17/25 History pen needle, diabetic 31 gauge x #100 ea 06/25/23 01/07/25 Rx 1/4" (1st Tier Unifine Pentips Plus) vitamin B complex-vitamin C-folic 1 tab PO QAM 09/09/23 03/17/25 History acid 0.8 mg tablet (Radha-Heriberto) polyethylene glycol 3350 17 17 g PO DAILY PRN constipation 03/09/24 03/17/25 Rx gram/dose oral powder (Miralax) #238 grams cholecalciferol (vitamin D3) 1,250 50,000 unit PO MONTHLY 09/07/24 03/17/25 History mcg (50,000 unit) capsule insulin glargine 100 unit/mL (3 30 unit (0.3 mL) subcut BID #15 mL 12/20/24 03/17/25 Rx mL) subcutaneous pen (Lantus Solostar U-100 Insulin) blood sugar diagnostic (OneTouch #300 ea 02/17/25 Rx Verio test strips) clotrimazole 1 % topical cream 1 applic topical BID PRN flare 03/17/25 03/17/25 History docusate sodium 100 mg capsule 100 mg PO DAILY PRN Constipation 03/17/25 03/17/25 History dulaglutide 0.75 mg/0.5 mL 0.75 mg subcut WK 03/17/25 03/17/25 History subcutaneous pen injector (Trulicity) levothyroxine 25 mcg tablet 25 mcg PO DAILYBB 03/17/25 03/17/25 History ondansetron HCl 4 mg tablet 4 mg PO Q6H PRN Nausea And Vomiting 03/17/25 03/17/25 History zinc oxide 16 %-40 % topical 1 ea topical TID PRN Flare 03/17/25 03/17/25 History ointment Patient History Medical History Peritoneal dialysis adequacy testing Pneumonia C. difficile colitis Surgical History History of nasal polypectomy History of dilation and curettage History of cholecystectomy History of delivery Family History Mother Heart disease Hypertension Myocardial infarction Father Cancer Denies family history of Ovarian cancer Prostate cancer Breast cancer Colorectal cancer Social History Smoking Status: Never smoker Second Hand Exposure: No; Do You Dip or Chew Tobacco: No; Tobacco Cessation Education Requested by Patient: No Hx Alcohol Use: No Hx Substance Use: No Preferred Language: Maori Communication Ability: Effective Visual Impairment: Partially Limited Hearing Ability: Normal Roller Helper Required: No Beliefs That Will Affect Care: None marital status: Current Living Situation: Spouse 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al status: retired 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 How many Children do You have: 2 Other Information That Helps Us Care for You: No Feels Safe at Home: Yes Safety Concerns: Feels Safe At This Time Childhood Exposure to Second-Hand Smoke: Yes Diet: low carbohydrate, low salt and regular caffeine: Yes during the past year weight has: remained stable Dental Care, Regularly: No Physical Activity Frequency: Does not Exercise Seatbelt Use: sometimes Sunscreen Use: Yes Do you think of yourself as: straight/heterosexual Gender Identity: Female Assistive Devices: Walker and Wheelchair Review of Systems Review of Systems: All systems reviewed & are unremarkable except as noted in HPI & below Physical Exam Constitutional: WD/WN, vitals as above + obese; no acute distress Neck: + thick neck Respiratory: normal respiratory effort; no labored breathing Auscultation: + diminished lung sounds; no crackles and no rales Cardiovascular: Rate/Rhythm: regular rate and regular rhythm Heart Sounds: no murmur Vessels: no JVD Extremities: no edema Gastrointestinal (Abdomen): normal bowel sounds, soft, nontender, no hepatosplenomegaly Neurologic: PERRL, EOMI, accommodation nl, no face palsy, no dysarthria Psychiatric: A+Ox3, euthymic affect Results & Data Vital Signs (Past 12 Hours) Vital Signs Temp Pulse Resp BP Pulse Ox O2 Del Method 03/18/25 11:25 36.7 C 67 16 111/69 95 Room Air 03/18/25 07:27 36.7 C 76 16 110/74 95 Room Air 03/18/25 03:44 36.3 C L 65 18 112/69 95 Room Air 03/18/25 02:40 36.7 C 75 18 108/70 97 Room Air 03/18/25 01:30 83 121/78 03/18/25 00:39 81 99/66 L Laboratory Results Cardiac Enzymes 03/17/25 Range/Units 17:19 AST 14 (13-39) U/L Coagulation 03/17/25 Range/Units 17:19 PT 10.9 (9.0-12.0) Seconds APTT 26 (21-31) Seconds Lipids 03/18/25 Range/Units 05:50 Triglycerides 98 (0-150) mg/dl Cholesterol 117 (0-200) mg/dl HDL Cholesterol 46 mg/dl Cholesterol/HDL Ratio 2.5 (0-5) CBC 03/17/25 03/18/25 Range/Units 17:19 05:50 WBC 11.05 H 10.96 H (4.8-10.8) K/ul RBC 4.33 3.98 L (4.20-5.40) M/uL Hgb 14.2 12.9 (12.0-16.0) g/dl Hct 42.0 38.6 (37.0-47.0) % Plt Count 196 179 (130-400) K/uL Neut # (Auto) 7.59 H (1.40-6.50) K/uL Lymph # (Auto) 1.67 (1.20-3.40) K/uL [place] # (Auto) 1.05 H (0.11-0.59) K/uL Eos # (Auto) 0.27 (0.00-0.50) K/uL Baso # (Auto) 0.14 (0.00-0.20) K/uL Comprehensive Metabolic Panel 03/17/25 03/17/25 03/18/25 Range/Units 17:19 23:01 05:50 Sodium 128 L 129 L 129 L (136-145) mmol/L Potassium 4.2 4.0 3.6 (3.5-5.1) mmol/L Chloride 88 L 93 L 96 L (98-107) mmol/L Carbon Dioxide 26 25 20 L (21-32) mmol/L BUN 42 H 44 H 45 H (6-23) mg/dl Creatinine 9.33 H* 9.48 H* 9.14 H* D (0.6-1.2) mg/dl Glucose 184 H 103 H 89 (70-99(Fasting)) mg/dl Calcium 9.5 9.3 8.6 (8.6-10.3) mg/dl AST 14 (13-39) U/L ALT 19 (7-52) U/L Alkaline Phosphatase 108 H (34-104) U/L Total Protein 7.1 (6.0-8.3) gm/dl Albumin 3.7 (3.4-5.0) gm/dl Intake and Output 03/17/25 03/18/25 03/18/25 22:59 06:59 14:59 Intake Total 500 / 1910 1410 / 1910 946.667 / 946.667 Balance 500 / 1910 1410 / 1910 946.667 / 946.667 Intake: IV 500 / 1910 1410 / 1910 946.667 / 946.667 Acetaminophen 1,000 mg In 100 100 / 100 ml @ 400 mls/hr IV Q8H PRN Rx#: [id number] Calcium Gluconate 1,000 mg In 60 / 60 60 ml @ 240 mls/hr IV NOW STA Rx#:[id number] Sodium Chloride 0.9% 1,000 ml @ 500 / 1750 1250 / 1750 946.667 / 946.667 100 mls/hr IV .Q10H HATTIE Rx#: [id number] Other: Other Intake Source NPO # Unmeasured Voids 0 Weight 115.6 kg 119.7 kg Weight Measurement Method Built in [facility] Built in [facility] Diagnostic Findings Telemetry reviewed: NSR with occ ectopy. No atrial fibrillation noted. Underlying conduction delay consistent with RBBB EKG on admission: NSR, with frequent atrial ectopy and PVC, RBBB, Poor R wave progression Compared with outpatient EKG, no significant changes noted Echo report reviewed from 03/18/25: Study was technically limited LV systolic function is severely reduced Grade I diastolic dysfunction Severe global hypokinesis of the LV Inferior vena cava is mildly dilated Chest X-Ray 03/17/25 16:57 Chest radiograph, one view History: Stroke alert Comparison: None Findings: Single AP view of the chest performed. No focal consolidation or pleural effusion. No pneumothorax. The cardiomediastinal silhouette is within normal limits. Normal pulmonary vascularity. No evidence for lymphadenopathy. No visualized bony or soft tissue abnormality. Impression: Normal chest radiograph Electronically signed by Arun Chen 03-17-2025 7:[address] 03/17/25 16:57 Clinical History: Possible stroke Technique: Axial computed tomography images were obtained of the brain from the vertex to the skull base without intravenous contrast. Findings: There is no sign of intracranial hemorrhage. There is normal walker-white matter differentiation with no sign of acute or old infarction. No midline shift or other form of herniation is identified. There is no hydrocephalus. No obvious mass lesion is seen on this noncontrast examination. There is fluid in the left sphenoid sinus. The mastoid air cells appear clear Impression: 1. Normal-appearing brain 2. Sphenoid sinusitis These findings were discussed with Dr. Coker at 5:31 PM and 03/17/2025 Electronically signed by Tramaine Chiu 03-17-2025 5:34 PM Head CTA 03/17/25 16:58 Clinical History: Possible stroke Technique: Axial computed tomography images were obtained of the brain after the administration of intravenous contrast according to the CT angiogram protocol Findings: There is calcified plaque within the cavernous and supraclinoid segments of the internal carotid arteries bilaterally, with severe stenoses. There appears to be near occlusion No definite stenosis or aneurysm is seen of the anterior, middle, or posterior cerebral artery circulations. The basilar artery is patent Impression: 1. Severe stenoses of the distal internal carotid arteries bilaterally, just before their bifurcation, with near occlusion 2. No other definite stenosis or aneurysm of the intracranial arteries These findings were discussed with Dr. Coker at 5:31 PM and 03/17/2025 Electronically signed by Tramaine Chiu 03-17-2025 5:38 PM Neck CTA 03/17/25 16:58 Clinical History: Possible stroke Technique: Axial computed tomography images were obtained of the neck after the administration of intravenous contrast according to the CT angiogram protocol Findings: No stenosis is seen of the common carotid arteries bilaterally. There is a severe stenosis of the right carotid bulb and proximal right internal carotid artery with 70-80% diameter narrowing. There is atherosclerotic plaque in the left carotid bulb and proximal left internal carotid artery, with less than 30% diameter narrowing. There is a mild stenosis at the origin of the left external carotid artery There is a severe stenosis of the origin of the right vertebral artery. There is a severe stenosis of the distal right vertebral artery. There is a severe stenosis of the distal left vertebral artery also. The visualized thoracic aorta appears unremarkable. There is extensive coronary atherosclerosis. There is a mild stenosis of the proximal left subclavian artery There is multilevel degenerative disc disease and osteoarthritis of the cervical spine. There is partial opacification of the mastoid air cells bilaterally. There is a small calcified nodule in the left thyroid lobe Impression: 1. 70-80% stenosis of the right carotid bulb and proximal right ICA 2. Severe stenoses of the origin of the right vertebral artery and of the distal vertebral arteries bilaterally 3. Mild stenosis of the proximal left subclavian artery 4. Mild stenosis at the proximal left ECA 5. Partial opacification of the mastoid air cells bilaterally, which may be due to inflammatory mastoiditis 6. Small calcified thyroid nodule. A follow-up thyroid ultrasound could be obtained ACT 112: Positive. There are findings on this exam that require communication between the performing entity and the patient following Patient Test Result Information Act ([place] ACT 112) guidelines. Electronically signed by Tramaine Chiu 03-17-2025 5:44 PM Brain MRI 03/18/25 00:40 EXAM: MR brain wo con CLINICAL HISTORY: stroke-like sx TECHNIQUE: MRI of the brain was performed without contrast with multiplanar sequences obtained. COMPARISON: Comparison is made with prior imaging studies 03/17/2025. FINDINGS: Brain Parenchyma: No evidence of acute infarction or hemorrhage. Bilateral scattered foci of altered signal intensity are noted, appearing hyperintense on T2 and FLAIR, showing no diffusion restriction. Suggestive of mild chronic microvascular ischemic changes. Normal walker-white matter differentiation. No mass lesions or focal cortical abnormalities identified. Ventricles and Sulci: Normal size and configuration of the lateral ventricles, third ventricle, and fourth ventricle. No evidence of hydrocephalus or ventriculomegaly. Prominent intra- and extraaxial CSF spaces Posterior Fossa: Cerebellum and brainstem appear normal without evidence of mass lesions or signal abnormalities. Cranial Nerves: Normal course and appearance of cranial nerves identified. Vessels: No evidence of vascular malformations or aneurysms. Intracranial arteries and veins appear normal without evidence of stenosis or occlusion. Orbits and Skull Base: Orbits and skull base structures are normal without evidence of abnormalities. Bilateral mastoiditis. Bilateral maxillary and sphenoid sinusitis. IMPRESSION: No acute ischemic insult is noted. Mild chronic microvascular ischemic changes. Age-related atrophy Rest of the findings are described above. Electronically signed by Fletcher Zimmerman 03-18-2025 02:12 AM Medications Administered Current Inpatient Medications Aspirin (Aspirin 81 Mg Ectab) 81 mg PO QAM [facility] Stop: 04/17/25 08:59 Last Admin: 03/18/25 07:50 Dose: 81 mg Atorvastatin Calcium (Atorvastatin 40 Mg Tab) 80 mg PO QAM [facility] Stop: 04/17/25 08:59 Last Admin: 03/18/25 07:50 Dose: 80 mg Dextrose (Dextrose 50% 50 Ml Syringe) 25 - 50 ml IV UD PRN; Protocol PRN Reason: Hypoglycemia Protocol Stop: 04/16/25 21:56 Docusate Sodium (Docusate Sodium 100 Mg Cap) 100 mg PO DAILY PRN PRN Reason: Constipation Stop: 04/16/25 21:56 Last Admin: 03/18/25 11:48 Dose: 100 mg Glucagon (Glucagon For Inj 1 Mg Vial) 1 mg SQ UD PRN; Protocol PRN Reason: Hypoglycemia Protocol Stop: 04/16/25 21:56 Glucose (Glucose 40% Gel 15 Gm Tube) 15 - 30 gm PO UD PRN; Protocol PRN Reason: Hypoglycemia Protocol Stop: 04/16/25 21:56 Glucose (Glucose 10 Tab/Tube) 4 - 8 tab PO UD PRN; Protocol PRN Reason: Hypoglycemia Protocol Stop: 04/16/25 21:56 Acetaminophen (Ofirmev) 1,000 mg in 100 mls @ 400 mls/hr IV Q8H PRN PRN Reason: Pain or Fever Stop: 03/21/25 00:37 Last Infusion: 03/18/25 01:51 Dose: Infused Insulin Aspart (Insulin Aspart Per Unit Charge) 0 units SC ACHS [facility] Stop: 04/17/25 07:29 Last Admin: 03/18/25 11:29 Dose: Not Given Insulin Glargine (Lantus Per Unit Charge) 15 units SQ BID [facility] Stop: 04/17/25 08:59 Last Admin: 03/18/25 10:04 Dose: 15 units Lactulose (Lactulose Syrup 20 Gm/30 Ml Udc) 20 gm PO NOW ONE Stop: 03/18/25 14:40 Levothyroxine Sodium (Levothyroxine Sodium 25 Mcg Tablet) 25 mcg PO DAILYBB [facility] Stop: 04/17/25 06:29 Last Admin: 03/18/25 06:45 Dose: Not Given Melatonin (Melatonin 3 Mg Tab) 3 mg PO HS PRN PRN Reason: Sleep Stop: 04/16/25 21:56 Midodrine (Midodrine Hcl 10 Mg Tab) 10 mg PO TID@0800,1200,1700 [facility] Stop: 04/17/25 07:59 Last Admin: 03/18/25 11:11 Dose: 10 mg Miscellaneous (Carbohydrates For Hypoglycemia ) 15 - 30 gm PO UD PRN PRN Reason: Hypoglycemia Protocol Stop: 04/16/25 21:56 Miscellaneous (Remove Lidoderm Patch) 1 each N/A DAILY@1500 [facility] Stop: 03/18/25 15:01 Miscellaneous Information (Pharmacist Discharge Med Rec Consult) 1 each N/A UD PRN PRN Reason: Consult Stop: 04/16/25 21:56 Nitroglycerin (Nitroglycerin Sl 0.4 Mg/Tab Tab) 0.4 mg SL Q5M PRN PRN Reason: Chest Pain Stop: 04/16/25 21:56 Ondansetron HCl (Ondansetron 4 Mg Od Tab) 4 mg PO Q6H PRN PRN Reason: Nausea And Vomiting Stop: 04/16/25 21:59 Polyethylene Glycol (Polyethylene (Miralax) 17 Gm Pack) 17 gm PO DAILY PRN PRN Reason: constipation Stop: 04/16/25 21:56 Ticagrelor (Ticagrelor 90 Mg Tab) 90 mg PO BID [facility] Stop: 04/17/25 10:29 Last Admin: 03/18/25 11:11 Dose: 90 mg PG Care Time/CCT Total # of Minutes Spent Total Time Spent with Patient: Total time spent is greater than 50% in coordination of care (as documented) at patient's floor/unit and/or counseling patient: 70 minutes Coding Level of Care Code 29463 INT INP/OBS CARE 3/75MIN Diagnoses Stroke-like symptoms R29.90 Hypotension I95.9 Vertebral artery stenosis I65.09 Carotid stenosis, right I65.21 Chronic heart failure with reduced ejection fraction and diastolic dysfunction I50.42 Coronary artery disease involving nulato coronary artery of nulato heart without angina pectoris I25.10 Associated angina: without angina Coronary Disease-Associated Artery/Lesion type: nulato artery Unga vs. transplanted heart: nulato heart ESRD (end stage renal disease) N18.6 (6) Coronary artery disease Associated angina: without angina Coronary Disease-Associated Artery/Lesion type: nulato artery Unga vs. transplanted heart: nulato heart Qualified Code(s): I25.10 - Atherosclerotic heart disease of nulato coronary artery without angina pectoris
--- NOTE | 2025-03-18 13:01 | Electrocardiogram Report ---
Test Reason : Blood Pressure : */* mmHG Vent. Rate : 113 BPM Atrial Rate : * BPM P-R Int : * ms QRS Dur : 134 ms QT Int : 370 ms P-R-T Axes : * 267 83 degrees QTcB Int : 507 ms Sinus rhythm with frequent and consecutive atrial ectopy with premature ventricular or aberrantly co nducted complexes Right bundle branch block Possible Lateral infarct , age undetermined Poor R wave progression, consider anterior CO vs. lead placement vs. LVH Abnormal ECG When compared with ECG of 14-Apr-2017 08:04, Right bundle branch block is now Present Borderline criteria for Lateral infarct are now Present Confirmed by Arun Michelle ([id number]) on 03/18/2025 1:01:15 PM Referred By: REFERRED SELF Confirmed By: Arun Michelle
[2025-03-18] MEDS: REMOVE LIDODERM PATCH SCH (15:05)
[2025-03-18] MEDS: LACTULOSE SYRUP 20 GM/30 ML UDC PO ONE (15:05)
--- NOTE | 2025-03-18 15:16 | Magnetic Resonance Report ---
MR brain wo con HISTORY: 69 years-old Female recurrent slurred speech; neuro asked repeat MRI acute stroke like symp toms COMPARISON: Brain MR same day at 1:09 AM, head CT 03/17/2025 TECHNIQUE: Multiplanar multisequence MRI of the brain was obtained without IV contrast FINDINGS: No restricted diffusion to suggest acute or subacute infarct. Midline structures appear unremarkable. No acute intracranial hemorrhage, midline shift, abnormal extra-axial collection, hydrocephalus or i ntra-axial mass. Involutional changes with mild scattered T2/FLAIR hyperintense foci throughout the w praveen matter. Cerebral venous sinuses and major arterial flow voids appear patent. Skull, orbits and soft tissues a re within normal limits. Prior bilateral lens repair. Small right with moderate left mastoid effusion s. Moderate to severe mucosal thickening of the left sphenoid sinus. 1.5 cm right maxillary sinus minesh yp. IMPRESSION: 1. No acute or subacute infarct identified. 2. Involutional changes with suggestion of mild chronic microvascular ischemic disease. ACT 112: Negative or not required by law. The above report was generated using voice recognition software. It may contain grammatical, syntax o r spelling errors. Electronically signed by: Ian Peck M.D. 03/18/2025 3:15 PM
[2025-03-18] MEDS: ONDANSETRON 4 MG OD TAB PO PRN (15:26)
--- NOTE | 2025-03-18 16:52 | Hospitalist Progress Note ---
Date of Service March 18, 2025 Assessment & Plan (1) Stroke-like symptom: (2) New onset a-fib: (3) Hyponatremia: Plan This is a 69 y/o F PMHx ESRD on PD, CAD s/p stent placement x5 in 2022 (w/ Serge) HTN, HLD, and T2DM who presented to the ED on 03/17 with waxing and waning right-sided facial droop, dysarthria, and RUE weakness. History was taken by patient and her . Last known well 11am on 03/17 before leaving the house to run errands. Arrived home around 12:40pm and noticed patient with right-sided facial droop and slurred speech. States this episodes resolved, however another one started around 2:15pm. He is unsure of how long these symptoms last for when they first onset, however seemed long in duration which prompted visit to ED. her CTA found b/l carotid stenosis, vertebral artery stenosis, brain MRI is negative. telemetry also found question of A-fib NO hx of previous stroke, however does have significant cardiac history for 5x stent placement in 2022 with Serge and for which she is on Plavix. Denies any headache, dizziness, N/V, chest pain, SOB during these episodes. States that she has never had these or similar symptoms before in the past. On arrival to ED, patient was initially without symptoms however has had about 5-6 repeat episodes since arrival. ED labs showing CBC nonactionable. BMP with hyponatremia Na 12 EKG showing new-onset a.fib with rate initially in 110s. CXR without acute disease. C Patient is being admitted for waxing/waning stroke-like symptoms in the setting of BL carotid and vertebral artery stenosis found on CTA head/neck and new-onset a. fib. #stroke-like symptoms/TIA vs ischemic stroke on 03/18 9:30am, has another episode of slurred speech, the 2nd brain MRI also negative for stroke since 03/17 11am, has waxing and waning stroke-like symptoms of right-sided facial droop and slurred speech. patient has had about 5-6 repeat episodes. During my exam patient was with symptoms that seemed to begin to resolve after about 15 minutes. - CTA head/neck showing severe bilateral carotid artery stenoses and vertebral artery stenosis -seen by [facility] neurology involved our on site neurology - MRI brain - ASA 324 mg (can continue with ASA 81 mg po starting in AM) ; switched home plavix to Brilinta - ordered Brilinta 180 mg loading dose to be given now, 80mg maintenance dose to start 12hr from loading dose - atorvastatin 80mg po daily - goal BP 140-160/80 - - given IV fluids normal saline bolus x1 and will continue with maintenance fluids normal saline 100 ml/hr - vascular surgery consulted given patient's CTA findingsng - neuro checks q4h - keep HOB flat - EKG & O2 prn - PT/OT evaluation - HEAD [employer] evaluation, dysphagia screening and aspiration precautions in place new onset CHF her prior EF was 50-55% her current EF is less than 25% given her tendency for hypotension, limiting Goal directed medical theray #new-onset a. fib - EKG on arrival to ED showing atrial fibrillation with rate 110s - started metoprolol 12.5mg po daily for rate control echo found worsening EF below 25%. brain MRI is negative. - continue telemetry monitoring #hyponatremia - Na 129 on admission ; unclear of etiology at this time - IV fluid normal saline bolus x1 - urine osm, urine sodium, and serum osm ordered #ESRD on PD - on peritoneal dialysis outpatient (since 6 months ago) been on HD for 2 years prior to that. - nephrology consulted - electrolytes were stable on admission labs ; ionized calcium was low at 1.07, replaced with calcium gluconate 1g. - previously on midodrine, however was discontinued due to patient inability to tolerate #T2DM - on insulin and Trulicity at home ; hold Trulicity - repeat A1c ordered - SSI ordered - ACHS checks q4 #hypothyroidism- levothyroxine 75mcg po daily DVT - SCDs, hold chemical prophylaxis to avoid hemorrhagic conversion if ischemic stroke present Dispo - PCU. Admission and Anticipated Discharge Date Admission Date: March 17, 2025 Subjective her MRI at 4am was negative her slurred speech recurred at 9:30am during PT session. repeat MRI negative for stroke echo show worsening EF, hx of stent 2 years ago. communicated with nephrology; cardiology and neurology no chest pain, no shortness of breath Physical Exam Physical Exam: VITALS: Reviewed. WEIGHT/BMI reviewed. GEN: Healthy appearing, well-developed, NAD. -Head: NC/AT; Neuro: AAox3; no pronator drift; 5/5 strenght; normal finger to nose able to repeat sentence; -Eyes: PERRL, EOMI. No discharge or redn ess; NECK: Supple, with no masses. CV: RRR, no m/r/g. LUNGS: CTAB, no w/r/c. ABD: Soft, NT/ND, NBS, no masses or organomegaly. SKIN: Warm, well perfused. No skin rashes or abnormal lesions. MSK: No deformities, Normal gait. EXT: No clubbing, cyanosis, or edema. Results & Data Results & Data Vital Signs (Past 12 Hours) Vital Signs Temp Pulse Resp BP Pulse Ox O2 Del Method 03/18/25 15:16 36.5 C 74 16 103/67 95 Room Air 03/18/25 11:25 36.7 C 67 16 111/69 95 Room Air 03/18/25 07:27 36.7 C 76 16 110/74 95 Room Air Laboratory Results Laboratory Results - last 72 hr 03/17/25 03/17/25 03/17/25 17:19 17:22 17:50 WBC 11.05 H RBC 4.33 Hgb 14.2 POC Hgb 15.3 Hct 42.0 POC Hct 45 MCV 97.0 MCH 32.8 MCHC 33.8 RDW Std Deviation 49.9 H RDW Coeff of Darrian 14.0 Plt Count 196 MPV 10.8 Immature Gran % (Auto) Neut % (Auto) Lymph % (Auto) Owen % (Auto) Eos % (Auto) Baso % (Auto) Neut # (Auto) Lymph # (Auto) Owen # (Auto) Eos # (Auto) Baso # (Auto) Immature Gran # (Auto) PT 10.9 INR 1.0 APTT 26 PTT Ratio 1.0 Plt Func Collagen/Epi POC Sodium 129 L Sodium 128 L POC Potassium 4.2 Potassium 4.2 POC Chloride 90 L Chloride 88 L Carbon Dioxide 26 POC Total CO2 25 Anion Gap 14 H POC Anion Gap 19.0 POC BUN 40 H BUN 42 H Creatinine 9.33 H* POC Creatinine 9.7 H* Est Cr Clr Drug Dosing 7.5 eGFR 4.18 BUN/Creatinine Ratio 4.5 L Glucose 184 H POC Glucose 185 H POC Glucose (other) 173 H Estimat Average Glucose Hemoglobin A1c Calcium 9.5 POC Ioniz Calcium Mauro 1.07 L Magnesium 2.4 Total Bilirubin 0.5 AST 14 ALT 19 Alkaline Phosphatase 108 H Total Protein 7.1 Albumin 3.7 Globulin 3.4 Albumin/Globulin Ratio 1.1 Triglycerides Cholesterol LDL Cholesterol, Calc VLDL Cholesterol, Calc HDL Cholesterol Cholesterol/HDL Ratio Nasal Screen MRSA (PCR) 03/17/25 03/17/25 03/17/25 21:15 22:48 23:01 WBC RBC Hgb POC Hgb Hct POC Hct MCV MCH MCHC RDW Std Deviation RDW Coeff of Darrian Plt Count MPV Immature Gran % (Auto) Neut % (Auto) Lymph % (Auto) Owen % (Auto) Eos % (Auto) Baso % (Auto) Neut # (Auto) Lymph # (Auto) Owen # (Auto) Eos # (Auto) Baso # (Auto) Immature Gran # (Auto) PT INR APTT PTT Ratio Plt Func Collagen/Epi 94 POC Sodium Sodium 129 L POC Potassium Potassium 4.0 POC Chloride Chloride 93 L Carbon Dioxide 25 POC Total CO2 Anion Gap 11 POC Anion Gap POC BUN BUN 44 H Creatinine 9.48 H* POC Creatinine Est Cr Clr Drug Dosing 7.4 eGFR 4.10 BUN/Creatinine Ratio 4.6 L Glucose 103 H POC Glucose 117 H POC Glucose (other) Estimat Average Glucose Hemoglobin A1c Calcium 9.3 POC Ioniz Calcium Mauro Magnesium Total Bilirubin AST ALT Alkaline Phosphatase Total Protein Albumin Globulin Albumin/Globulin Ratio Triglycerides Cholesterol LDL Cholesterol, Calc VLDL Cholesterol, Calc HDL Cholesterol Cholesterol/HDL Ratio Nasal Screen MRSA (PCR) Negative 03/18/25 03/18/25 03/18/25 05:50 07:55 11:21 WBC 10.96 H RBC 3.98 L Hgb 12.9 POC Hgb Hct 38.6 POC Hct MCV 97.0 MCH 32.4 MCHC 33.4 RDW Std Deviation 49.9 H RDW Coeff of Darrian 14.3 Plt Count 179 MPV 11.0 Immature Gran % (Auto) 2.2 Neut % (Auto) 69.2 Lymph % (Auto) 15.2 Owen % (Auto) 9.6 Eos % (Auto) 2.5 Baso % (Auto) 1.3 Neut # (Auto) 7.59 H Lymph # (Auto) 1.67 Owen # (Auto) 1.05 H Eos # (Auto) 0.27 Baso # (Auto) 0.14 Immature Gran # (Auto) 0.24 H PT INR APTT PTT Ratio Plt Func Collagen/Epi POC Sodium Sodium 129 L POC Potassium Potassium 3.6 POC Chloride Chloride 96 L Carbon Dioxide 20 L POC Total CO2 Anion Gap 13 H POC Anion Gap POC BUN BUN 45 H Creatinine 9.14 H* D POC Creatinine Est Cr Clr Drug Dosing 7.8 eGFR 4.29 BUN/Creatinine Ratio 4.9 L Glucose 89 POC Glucose 82 133 H POC Glucose (other) Estimat Average Glucose 206 Hemoglobin A1c 8.8 H Calcium 8.6 POC Ioniz Calcium Mauro Magnesium Total Bilirubin AST ALT Alkaline Phosphatase Total Protein Albumin Globulin Albumin/Globulin Ratio Triglycerides 98 Cholesterol 117 LDL Cholesterol, Calc 51 VLDL Cholesterol, Calc 20 HDL Cholesterol 46 Cholesterol/HDL Ratio 2.5 Nasal Screen MRSA (PCR) 03/18/25 16:24 WBC RBC Hgb POC Hgb Hct POC Hct MCV MCH MCHC RDW Std Deviation RDW Coeff of Darrian Plt Count MPV Immature Gran % (Auto) Neut % (Auto) Lymph % (Auto) Owen % (Auto) Eos % (Auto) Baso % (Auto) Neut # (Auto) Lymph # (Auto) Owen # (Auto) Eos # (Auto) Baso # (Auto) Immature Gran # (Auto) PT INR APTT PTT Ratio Plt Func Collagen/Epi POC Sodium Sodium POC Potassium Potassium POC Chloride Chloride Carbon Dioxide POC Total CO2 Anion Gap POC Anion Gap POC BUN BUN Creatinine POC Creatinine Est Cr Clr Drug Dosing eGFR BUN/Creatinine Ratio Glucose POC Glucose 100 H POC Glucose (other) Estimat Average Glucose Hemoglobin A1c Calcium POC Ioniz Calcium Mauro Magnesium Total Bilirubin AST ALT Alkaline Phosphatase Total Protein Albumin Globulin Albumin/Globulin Ratio Triglycerides Cholesterol LDL Cholesterol, Calc VLDL Cholesterol, Calc HDL Cholesterol Cholesterol/HDL Ratio Nasal Screen MRSA (PCR) Diagnostic Findings Chest X-Ray 03/17/25 16:57 Chest radiograph, one view History: Stroke alert Comparison: None Findings: Single AP view of the chest performed. No focal consolidation or pleural effusion. No pneumothorax. The cardiomediastinal silhouette is within normal limits. Normal pulmonary vascularity. No evidence for lymphadenopathy. No visualized bony or soft tissue abnormality. Impression: Normal chest radiograph Electronically signed by Arun Chen 03-17-2025 7:[address] 03/17/25 16:57 Clinical History: Possible stroke Technique: Axial computed tomography images were obtained of the brain from the vertex to the skull base without intravenous contrast. Findings: There is no sign of intracranial hemorrhage. There is normal walker-white matter differentiation with no sign of acute or old infarction. No midline shift or other form of herniation is identified. There is no hydrocephalus. No obvious mass lesion is seen on this noncontrast examination. There is fluid in the left sphenoid sinus. The mastoid air cells appear clear Impression: 1. Normal-appearing brain 2. Sphenoid sinusitis These findings were discussed with Dr. Coker at 5:31 PM and 03/17/2025 Electronically signed by Tramaine Chiu 03-17-2025 5:34 PM Head CTA 03/17/25 16:58 Clinical History: Possible stroke Technique: Axial computed tomography images were obtained of the brain after the administration of intravenous contrast according to the CT angiogram protocol Findings: There is calcified plaque within the cavernous and supraclinoid segments of the internal carotid arteries bilaterally, with severe stenoses. There appears to be near occlusion No definite stenosis or aneurysm is seen of the anterior, middle, or posterior cerebral artery circulations. The basilar artery is patent Impression: 1. Severe stenoses of the distal internal carotid arteries bilaterally, just before their bifurcation, with near occlusion 2. No other definite stenosis or aneurysm of the intracranial arteries These findings were discussed with Dr. Coker at 5:31 PM and 03/17/2025 Electronically signed by Tramaine Chiu 03-17-2025 5:38 PM Neck CTA 03/17/25 16:58 Clinical History: Possible stroke Technique: Axial computed tomography images were obtained of the neck after the administration of intravenous contrast according to the CT angiogram protocol Findings: No stenosis is seen of the common carotid arteries bilaterally. There is a severe stenosis of the right carotid bulb and proximal right internal carotid artery with 70-80% diameter narrowing. There is atherosclerotic plaque in the left carotid bulb and proximal left internal carotid artery, with less than 30% diameter narrowing. There is a mild stenosis at the origin of the left external carotid artery There is a severe stenosis of the origin of the right vertebral artery. There is a severe stenosis of the distal right vertebral artery. There is a severe stenosis of the distal left vertebral artery also. The visualized thoracic aorta appears unremarkable. There is extensive coronary atherosclerosis. There is a mild stenosis of the proximal left subclavian artery There is multilevel degenerative disc disease and osteoarthritis of the cervical spine. There is partial opacification of the mastoid air cells bilaterally. There is a small calcified nodule in the left thyroid lobe Impression: 1. 70-80% stenosis of the right carotid bulb and proximal right ICA 2. Severe stenoses of the origin of the right vertebral artery and of the distal vertebral arteries bilaterally 3. Mild stenosis of the proximal left subclavian artery 4. Mild stenosis at the proximal left ECA 5. Partial opacification of the mastoid air cells bilaterally, which may be due to inflammatory mastoiditis 6. Small calcified thyroid nodule. A follow-up thyroid ultrasound could be obtained ACT 112: Positive. There are findings on this exam that require communication between the performing entity and the patient following Patient Test Result Information Act ([place] ACT 112) guidelines. Electronically signed by Tramaine Chiu 03-17-2025 5:44 PM Brain MRI 03/18/25 00:40 EXAM: MR brain wo con CLINICAL HISTORY: stroke-like sx TECHNIQUE: MRI of the brain was performed without contrast with multiplanar sequences obtained. COMPARISON: Comparison is made with prior imaging studies 03/17/2025. FINDINGS: Brain Parenchyma: No evidence of acute infarction or hemorrhage. Bilateral scattered foci of altered signal intensity are noted, appearing hyperintense on T2 and FLAIR, showing no diffusion restriction. Suggestive of mild chronic microvascular ischemic changes. Normal walker-white matter differentiation. No mass lesions or focal cortical abnormalities identified. Ventricles and Sulci: Normal size and configuration of the lateral ventricles, third ventricle, and fourth ventricle. No evidence of hydrocephalus or ventriculomegaly. Prominent intra- and extraaxial CSF spaces Posterior Fossa: Cerebellum and brainstem appear normal without evidence of mass lesions or signal abnormalities. Cranial Nerves: Normal course and appearance of cranial nerves identified. Vessels: No evidence of vascular malformations or aneurysms. Intracranial arteries and veins appear normal without evidence of stenosis or occlusion. Orbits and Skull Base: Orbits and skull base structures are normal without evidence of abnormalities. Bilateral mastoiditis. Bilateral maxillary and sphenoid sinusitis. IMPRESSION: No acute ischemic insult is noted. Mild chronic microvascular ischemic changes. Age-related atrophy Rest of the findings are described above. Electronically signed by Fletcher Zimmerman 03-18-2025 02:12 AM Brain MRI 03/18/25 13:02 MR brain wo con HISTORY: 69 years-old Female recurrent slurred speech; neuro asked repeat MRI acute stroke like symptoms COMPARISON: Brain MR same day at 1:09 AM, head CT 03/17/2025 TECHNIQUE: Multiplanar multisequence MRI of the brain was obtained without IV contrast FINDINGS: No restricted diffusion to suggest acute or subacute infarct. Midline structures appear unremarkable. No acute intracranial hemorrhage, midline shift, abnormal extra-axial collection, hydrocephalus or intra-axial mass. Involutional changes with mild scattered T2/FLAIR hyperintense foci throughout the white matter. Cerebral venous sinuses and major arterial flow voids appear patent. Skull, orbits and soft tissues are within normal limits. Prior bilateral lens repair. Small right with moderate left mastoid effusions. Moderate to severe mucosal thickening of the left sphenoid sinus. 1.5 cm right maxillary sinus polyp. IMPRESSION: 1. No acute or subacute infarct identified. 2. Involutional changes with suggestion of mild chronic microvascular ischemic disease. ACT 112: Negative or not required by law. The above report was generated using voice recognition software. It may contain grammatical, syntax or spelling errors. Electronically signed by: Ian Peck M.D. 03/18/2025 3:15 PM PG Care Time/CCT Total # of Minutes Spent Total Time Spent with Patient: Total time spent is greater than 50% in coordination of care (as documented) at patient's floor/unit and/or counseling patient: Coding Level of Care Code 58556 SUB INP/OBS CARE 2/35MIN Diagnoses Stroke-like symptom R29.90 New onset a-fib I48.91 Hyponatremia E87.1 Time Spent (min) 35
--- NOTE | 2025-03-18 17:56 | Electrocardiogram Report ---
Test Reason : Blood Pressure : */* mmHG Vent. Rate : 71 BPM Atrial Rate : 71 BPM P-R Int : 176 ms QRS Dur : 126 ms QT Int : 498 ms P-R-T Axes : 37 181 117 degrees QTcB Int : 541 ms Normal sinus rhythm Right bundle branch block Possible Lateral infarct (cited on or before 17-Mar-2025) Abnormal ECG When compared with ECG of 17-Mar-2025 17:24, Sinus rhythm has replaced Atrial fibrillation Vent. rate has decreased by 42 bpm Confirmed by Arun Michelle ([id number]) on 03/18/2025 5:56:34 PM Referred By: REFERRED SELF Confirmed By: Arun Michelle
--- NOTE | 2025-03-18 18:10 | Neurology Consultation ---
Date of Consultation March 18, 2025 Assessment & Plan (1) Vertebral artery stenosis: (2) Carotid stenosis, bilateral: (3) Carotid stenosis, right: (4) Stroke-like symptom: Plan 69-year-old female with new onset right facial droop, dysarthria, right sided weakness, primarily the leg at this time. Her symptoms have been waxing and waning over the past few days although the right leg weakness has been present for a bit longer. No obvious evidence of acute stroke on 2 recent brain MRIs although she does have chronic microvascular ischemic disease. No obvious evidence of an acute or subacute brainstem stroke per my review. I agree that her symptoms could be related to cerebral hypoperfusion in the context of severe stenoses of both distal internal carotid arteries and distal vertebral arteries. She also has severe stenosis at the origin of the right vertebral artery and a 70 to 80% stenosis of the right internal carotid artery. I agree that the right internal carotid artery stenosis would not be considered symptomatic in the context of her current signs and symptoms. A small pontine or brainstem stroke is possible, but again, not definitively observed on 2 recent MRIs. I agree that there is no role for carotid stenting or endarterectomy to address the 70 to 80% stenosis of the right internal carotid artery at this time. The additional carotid and vertebral artery stenoses as described above cannot be addressed at [facility]. Conventional treatment consists of medical management, antiplatelet therapy and cholesterol-lowering therapy. I agree with aspirin, Brilinta, and atorvastatin as ordered. I also agree with midodrine as ordered to potentially promote improved TIRE TRUCKER perfusion when upright. If she remains symptomatic, however, I agree that transfer to a tertiary center may be indicated to assess for suitability of carotid or vertebral stenting. She would need a conventional cerebral arteriogram and possibly cerebral perfusion study. Again, stenting of these vessels in this context would not be considered standard care, but could be considered given the complexity of her case. Further, given her severely reduced ejection fraction, a case could be made for anticoagulation. Would consider 30-day mobile cardiac outpatient telemetry. I would defer to cardiology, however, regarding anticoagulation on the basis of severely reduced EF without proven atrial fibrillation. Please call with any questions. History of Present Illness Reason for Consultation: Concern for stroke Requesting Physician: Shandra Attending Physician: Gayle Devi, DO History of Present Illness The patient is a 69-year-old female with a chief complaint of slurred speech, right facial droop, and right sided weakness. Her symptoms have been occurring intermittently over the past 2 days although she does remark that her right leg has been feeling weak for a bit longer. Her symptoms seem to be worse when upright and improved modestly when lying down. on peritoneal past medical history notable for end-stage renal disease on peritoneal dialysis, coronary artery disease, post stent placement, insulin-dependent diabetes mellitus, associated diabetic peripheral neuropathy. A CT angiogram of the neck revealed a 70 to 80% stenosis within the right carotid bulb and proximal right internal carotid artery, severe stenoses of the origin of the right vertebral artery and the distal vertebral arteries bilaterally. CTA of the head revealed severe stenoses of the distal internal carotid arteries bilaterally, with near occlusion. An initial brain MRI was negative for acute process but did reveal chronic microvascular ischemic disease. A repeat brain MRI was completed as well which was also negative for obvious acute process. I did independently review these images. Her right facial droop and dysarthria are persistent, she also has mild weakness for the right lower limb. She denies headache. She denies dysphagia. Patient did have a consultation with vascular surgery, recommendation was for aspirin, Brilinta, and atorvastatin, follow-up carotid duplex in 3 months, the right carotid stenosis was not felt to be related to her current presentation. Question regarding hypoperfusion in the context of multifocal carotid and vertebral stenoses and poor cardiac output as a cause of her neurological symptoms. Patient was seen by cardiology as well, may consider an alternative to statin therapy given history of intolerance. Midodrine discussed. No evidence of atrial fibrillation, no indication for anticoagulation. Consider low-dose metoprolol. Patient seen by nephrology as well regarding end-stage renal disease, on peritoneal dialysis, consider evaluation at tertiary care center if necessary. Allergies Allergy/AdvReac Type Severity Reaction Status Date / Time codeine Allergy Unknown SEVERE Verified 03/17/25 18:21 NAUSEA, VOMITING, "ROOM SPINS" tramadol AdvReac Intermediate Vomiting Verified 03/17/25 18:21 acetaminophen [From Endocet] AdvReac Unknown Verified 03/18/25 14:42 atorvastatin AdvReac Muscle Pain Verified 03/18/25 14:51 homatropine AdvReac Unknown Verified 03/18/25 14:42 [From Hycodan (with homatropin)] hydrocodone AdvReac Unknown Verified 03/18/25 14:42 [From Hycodan (with homatropin)] oxycodone [From Endocet] AdvReac Unknown Verified 03/18/25 14:42 Home Medications Medication Instructions Recorded Confirmed Type blood glucose control, normal #1 ea 05/28/22 01/07/25 Rx (OneTouch Verio Mid Control solution) blood-glucose meter (OneTouch #1 ea 05/28/22 01/07/25 Rx Verio Flex Meter) clopidogrel 75 mg tablet 75 mg PO QAM 05/02/23 03/17/25 History pen needle, diabetic 31 gauge x #100 ea 06/25/23 01/07/25 Rx 1/4" (1st Tier Unifine Pentips Plus) vitamin B complex-vitamin C-folic 1 tab PO QAM 09/09/23 03/17/25 History acid 0.8 mg tablet (Radha-Heriberto) polyethylene glycol 3350 17 17 g PO DAILY PRN constipation 03/09/24 03/17/25 Rx gram/dose oral powder (Miralax) #238 grams cholecalciferol (vitamin D3) 1,250 50,000 unit PO MONTHLY 09/07/24 03/17/25 History mcg (50,000 unit) capsule insulin glargine 100 unit/mL (3 30 unit (0.3 mL) subcut BID #15 mL 12/20/24 03/17/25 Rx mL) subcutaneous pen (Lantus Solostar U-100 Insulin) blood sugar diagnostic (OneTouch #300 ea 02/17/25 Rx Verio test strips) clotrimazole 1 % topical cream 1 applic topical BID PRN flare 03/17/25 03/17/25 History docusate sodium 100 mg capsule 100 mg PO DAILY PRN Constipation 03/17/25 03/17/25 History dulaglutide 0.75 mg/0.5 mL 0.75 mg subcut WK 03/17/25 03/17/25 History subcutaneous pen injector (Trulicity) levothyroxine 25 mcg tablet 25 mcg PO DAILYBB 03/17/25 03/17/25 History ondansetron HCl 4 mg tablet 4 mg PO Q6H PRN Nausea And Vomiting 03/17/25 03/17/25 History zinc oxide 16 %-40 % topical 1 ea topical TID PRN Flare 03/17/25 03/17/25 History ointment Patient History Medical History Peritoneal dialysis adequacy testing Pneumonia C. difficile colitis Surgical History History of nasal polypectomy History of dilation and curettage History of cholecystectomy History of delivery Family History Mother Heart disease Hypertension Myocardial infarction Father Cancer Denies family history of Ovarian cancer Prostate cancer Breast cancer Colorectal cancer Social History Smoking Status: Never smoker Second Hand Exposure: No; Do You Dip or Chew Tobacco: No; Tobacco Cessation Education Requested by Patient: No Hx Alcohol Use: No Hx Substance Use: No Preferred Language: Latvian Communication Ability: Effective Visual Impairment: Partially Limited Hearing Ability: Normal Pantry Cook Required: No Beliefs That Will Affect Care: None marital status: Current Living Situation: Spouse 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al status: retired 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 How many Children do You have: 2 Other Information That Helps Us Care for You: No Feels Safe at Home: Yes Safety Concerns: Feels Safe At This Time Childhood Exposure to Second-Hand Smoke: Yes Diet: low carbohydrate, low salt and regular caffeine: Yes during the past year weight has: remained stable Dental Care, Regularly: No Physical Activity Frequency: Does not Exercise Seatbelt Use: sometimes Sunscreen Use: Yes Do you think of yourself as: straight/heterosexual Gender Identity: Female Assistive Devices: Walker and Wheelchair Review of Systems Constitutional: no fever Eyes: no blind spots and no diplopia Ear, Nose, Mouth, Throat: no hearing loss Respiratory: no cough Cardiovascular: no chest pain Gastrointestinal: no nausea and no vomiting Genitourinary: as per Subjective / HPI Musculoskeletal: no myalgia Integumentary: no rash Neurologic: as per Subjective / HPI Psychiatric: no depression and no anxiety Hematologic / Lymphatic: no easy bleeding Exam (Neuro) Constitutional: well developed and well nourished; no acute distress Eyes: normal visual adames by confrontation, PERRL and EOM intact bilaterally; no nystagmus Neurologic: Oriented to:: Person, Place and Time Memory: Short Term Intact and Remote Intact Attention: Span Intact and Concentration Intact Speech Fluency: Dysarthria Speech Aphasia: negative Aphasia Fund of Knowledge: Current Events, Past History and Vocabulary Cranial Nerves: Normal II, III, IV, , V, VIII, IX, X, XI and XII; Abnorm VII (Right lower facial droop noted) Motor Strength: Normal Upper Extremities; negative Normal Lower Extremities (Mild weakness for the right lower extremity appreciated) Motor Tone: Normal Lower Extremities and Normal Upper Extremities Muscle Bulk/Involuntary Movements: No Involuntary Movements; negative Muscle Atrophy Sensation: negative Light Touch Intact, Pain/Temperature Intact or Proprioception Intact Coordination: Heel-Amezcau Abnormal Laterality: Right; negative Dysdiadochokinesia or Finger-Nose Abnormal Deep Tendon Reflexes: Rt Triceps: 2+, Lt Triceps: 2+, Rt Biceps: 2+, Lt Biceps: 2+, Rt Brachioradialis: 2+, Lt Brachioradialis: 2+, Rt Patellar: 2+, Lt Patellar: 2+, Rt Ankle: 1+ and Lt Ankle: 1+ Special Tests: negative Babinski Present Results & Data Vital Signs (Past 12 Hours) Vital Signs Temp Pulse Resp BP Pulse Ox O2 Del Method 03/18/25 15:16 36.5 C 74 16 103/67 95 Room Air 03/18/25 11:25 36.7 C 67 16 111/69 95 Room Air 03/18/25 07:27 36.7 C 76 16 110/74 95 Room Air Laboratory Results Hemoglobin A1c 8.8. Triglycerides 98, cholesterol 117, LDL 51, HDL 46. Diagnostic Findings Electrocardiogram reveals normal sinus rhythm, right bundle branch block, 71 bpm. severely reduced left and echocardiogram indicates severely reduced left ventricular systolic function, severe global hypokinesis of the left ventricle, left atrium normal size. Coding Level of Care Code 79179 INT INP/OBS CARE MIN Diagnoses Vertebral artery stenosis I65.09 Carotid stenosis, bilateral I65.23 Carotid stenosis, right I65.21 Stroke-like symptom R29.90 Time Spent (min) 80 Comment Total time includes patient contact, chart review, counseling, note preparation
[2025-03-18 18:17] LABS: Hep B Surface Ag with confirm Negative (Negative)
[2025-03-19 06:26] LABS: Hematocrit (blood only) 40.3 % (37.0-47.0); Hemoglobin 13.9 g/dl (12.0-16.0); Immature Granulocytes # (auto) 0.26 K/uL (0.01-0.20); Immature Granulocytes % (auto) 2.1 %; Mean Corpuscular Hemoglobin 33.0 pg (25.0-34.0); Mean Corpuscular Volume 95.7 fL (80.0-100.0); Platelet Count 196 K/uL (130-400); RDW Standard Deviation 49.7 fL (36.4-46.3); Red Blood Count 4.21 M/uL (4.20-5.40); White Blood Count 12.21 K/ul (4.8-10.8)
[2025-03-19 07:23] LABS: Anion Gap 15.0 (3-11); Blood Urea Nitrogen 42.0 mg/dl (6-23); Calcium 8.7 mg/dl (8.6-10.3); Carbon Dioxide 22.0 mmol/L (21-32); Chloride 94.0 mmol/L (98-107); Creatinine Clr Calc Pharmacy 7.8 ml/min; Glucose 160.0 mg/dl (70-99(Fasting)); Potassium 4.0 mmol/L (3.5-5.1); Sodium 131.0 mmol/L (136-145)
--- NOTE | 2025-03-19 10:10 | Neurology Progress Note ---
Date of Service March 19, 2025 Assessment & Plan (1) Carotid stenosis, bilateral: (2) Vertebral artery stenosis: (3) Carotid stenosis, right: (4) Stroke-like symptom: Plan Resolved strokelike symptoms this morning, no facial droop or dysarthria. I continue to suspect that her symptoms are related to cerebral hypoperfusion in the context of severe stenoses of both distal internal carotid arteries, the distal vertebral arteries, superimposed severe stenosis at the origin of the right vertebral artery, and a 70 to 80% stenosis of the right internal carotid artery. The right internal carotid artery stenosis would be responsible for her right facial droop and dysarthria and does not require surgical care at this time. Please see yesterday's neurology consultation for additional details. Continue with current medical treatment including midodrine to address postural hypotension and improve cerebral perfusion, Brilinta, aspirin, and atorvastatin. Atorvastatin could be substituted with a PCSK9 inhibitor as suggested by cardiology as patient does have a history of intolerance to statins. Case discussed with hospitalist at bedside as well. Admission and Anticipated Discharge Date Admission Date: March 17, 2025 Subjective Follow-up, bilateral carotid stenosis, vertebral artery stenosis, right carotid stenosis, strokelike symptom Patient's right facial droop and dysarthria are resolved this morning. She has been lying flat. Patient indicates that she did not experience recurrence of symptoms while sitting up eating breakfast this morning. She continues to have mild weakness for the right leg which has been a chronic issue. No weakness of the upper limbs at this time. No headache. Results & Data Vital Signs (Past 12 Hours) Vital Signs Temp Pulse Pulse Resp BP Pulse Ox O2 Del Method 03/19/25 07:29 36.4 C L 90 16 100/67 96 Room Air 03/19/25 02:42 36.5 C 03/19/25 02:34 36.2 C L 82 17 109/71 95 Room Air 03/18/25 23:00 88 03/18/25 22:42 36.6 C 76 17 129/83 96 Room Air Exam (Neuro) Neurologic: Oriented to:: Person, Place and Time Memory: Short Term Intact and Remote Intact Attention: Span Intact and Concentration Intact Speech Fluency: negative Dysarthria or Dysfluency Speech Aphasia: negative Aphasia Fund of Knowledge: Current Events, Past History and Vocabulary Cranial Nerves: Normal II, III, IV, , V, VII, VIII, IX, X, XI and XII Motor Strength: Normal Upper Extremities; negative Normal Lower Extremities (Mild weakness for the right lower extremity) Muscle Bulk/Involuntary Movements: No Involuntary Movements Sensation: negative Light Touch Intact or Pain/Temperature Intact Coordination: negative Finger-Nose Abnormal Coding Level of Care Code 36718 SUB INP/OBS CARE 235MIN Diagnoses Carotid stenosis, bilateral I65.23 Vertebral artery stenosis I65.09 Carotid stenosis, right I65.21 Stroke-like symptom R29.90 Time Spent (min) 40 Comment Total time includes patient contact, chart review, counseling, note preparation
[2025-03-19 11:48] VITALS: TEMP 97.9
[2025-03-19] MEDS: FLUDROCORTISONE ACETATE 0.1 MG TAB PO SCH (13:40)
[2025-03-19] MEDS: SODIUM CHLORIDE 0.9% 250 ML IV SCH (13:49)
--- NOTE | 2025-03-19 15:00 | Hospitalist Progress Note ---
Date of Service March 19, 2025 Assessment & Plan (1) Stroke-like symptom: (2) New onset a-fib: (3) Hyponatremia: Plan This is a 69 y/o F PMHx ESRD on PD, CAD s/p stent placement x5 in 2022 (w/ Serge) HTN, HLD, and T2DM who presented to the ED on 03/17 with waxing and waning right-sided facial droop, dysarthria, and RUE weakness. History was taken by patient and her . Last known well 11am on 03/17 before leaving the house to run errands. Arrived home around 12:40pm and noticed patient with right-sided facial droop and slurred speech. States this episodes resolved, however another one started around 2:15pm. He is unsure of how long these symptoms last for when they first onset, however seemed long in duration which prompted visit to ED. her CTA found b/l carotid stenosis, vertebral artery stenosis, brain MRI is negative. telemetry also found question of A-fib NO hx of previous stroke, however does have significant cardiac history for 5x stent placement in 2022 with Serge and for which she is on Plavix. Denies any headache, dizziness, N/V, chest pain, SOB during these episodes. States that she has never had these or similar symptoms before in the past. On arrival to ED, patient was initially without symptoms however has had about 5-6 repeat episodes since arrival. ED labs showing CBC nonactionable. BMP with hyponatremia Na 12 EKG showing new-onset a.fib with rate initially in 110s. CXR without acute disease. C Patient is being admitted for waxing/waning stroke-like symptoms in the setting of BL carotid and vertebral artery stenosis found on CTA head/neck and new-onset a. fib. #stroke-like symptoms/TIA vs ischemic stroke on 03/18 9:30am, has another episode of slurred speech, the 2nd brain MRI also negative for stroke since 03/17 11am, has waxing and waning stroke-like symptoms of right-sided facial droop and slurred speech. on 03/19/2025, another expressive episode with sitting and staning accepted by [facility] neuroICU noted she's received brilinta on 03/19/2025 morning she's was loaded with brilinta; hold Friday evening dose of Brilinta. aspirin and statin. avoid hypotension patient has had about 5-6 repeat episodes. During my exam patient was with symptoms that seemed to begin to resolve after about 15 minutes. - CTA head/neck showing severe bilateral carotid artery stenoses and vertebral artery stenosis -seen by [facility] neurology involved our on site neurology - MRI brain - ASA 324 mg (can continue with ASA 81 mg po starting in AM) ; switched home plavix to Brilinta - ordered Brilinta 180 mg loading dose to be given now, 80mg maintenance dose to start 12hr from loading dose - atorvastatin 80mg po daily - goal BP 140-160/80 - - given IV fluids normal saline bolus x1 and will continue with maintenance fluids normal saline 100 ml/hr - vascular surgery consulted given patient's CTA findingsng - neuro checks q4h - keep HOB flat - - PT/OT evaluation - [employer] evaluation, dysphagia screening and aspiration precautions in place new onset CHF her prior EF was 50-55% her current EF is less than 25% given her tendency for hypotension, limiting Goal directed medical therapy the finding of worsening EF been discussed with on 03/19 #new-onset a. fib - EKG on arrival to ED showing atrial fibrillation with rate 110s - started metoprolol 12.5mg po daily for rate control echo found worsening EF below 25%. brain MRI is negative. - continue telemetry monitoring #hyponatremia - Na 129 on admission ; unclear of etiology at this time - IV fluid normal saline bolus x1 - urine osm, urine sodium, and serum osm ordered #ESRD on PD - on peritoneal dialysis outpatient (since 6 months ago) been on HD for 2 years prior to that. - nephrology consulted - electrolytes were stable on admission labs ; ionized calcium was low at 1.07, replaced with calcium gluconate 1g. - previously on midodrine, however was discontinued due to patient inability to tolerate #T2DM - on insulin and Trulicity at home ; hold Trulicity - repeat A1c ordered - SSI ordered - ACHS checks q4 #hypothyroidism- levothyroxine 75mcg po daily DVT - SCDs, hold chemical prophylaxis to avoid hemorrhagic conversion if ischemic stroke present Dispo - PCU. Admission and Anticipated Discharge Date Admission Date: March 17, 2025 Supervising Physician Co-Signing Physician Notes I have personally performed a history and physical examination on the patient. I have reviewed the advance practitioner's documentation, and I agree with, and take responsibility for the plan of care. 69-year-old female admitted with strokelike symptoms, resting hypotension, orthostatic hypotension. Chronic heart failure medications discontinued include metoprolol, and Entresto. Taking Plavix only prior to admission. Presents with symptoms including intermittent facial droop and slurred speech. Symptoms occur when she was change position from supine to sitting up. No chest pain or shortness of breath. Currently symptomatic at rest. Repeat echocardiogram demonstrating severe LV systolic function. Patient notes mild dyspnea at this time related to missing peritoneal dialysis treatment last evening. No orthopnea or PND. Initial ECG initially thought to be atrial fibrillation, however, on closer review there is no evidence of atrial fibrillation rather, the rhythm is sinus with frequent PACs. CTA of the head and neck demonstrating significant stenosis of the right internal carotid artery, severe stenosis of the right vertebral artery and severe stenosis of the left vertebral artery. Clopidogrel discontinued in favor of aspirin plus Brilinta in the ER. I suspect symptoms related to cerebral hypoperfusion in setting of carotid vascular and cerebrovascular disease with chronic resting hypotension, and orthostatic hypotension. Unfortunately, treatment options are limited due to chronic hypotension. No evidence of atrial fibrillation or LV apical thrombus, therefore, IV anticoagulation is not indicated from a cardiac perspective at this time. Continue telemetry monitoring. Reduced ejection fraction possibly due to to stress-induced event versus lack of GDMT as described above. Patient appears mildly hypervolemic although I suspect this is due to missed peritoneal dialysis treatment. Volume management as per peritoneal dialysis/nephrology. I would like the patient to restart low-dose Toprol-XL 12.5 mg daily as blood pressure allows. Low-dose losartan and or Entresto may be considered if blood pressure improves. Midodrine added by nephrology for blood pressure support. Continue aspirin and Brilinta as recommended by neurology. Vascular surgery following at this time. I spent a total of 40 minutes on the date of service in preparation, delivery, and documentation of the care provided to this patient, excluding any time spent in the performance of separately billed services. Anthony Pappas DO, [facility] Subjective Follow-up, bilateral carotid stenosis, vertebral artery stenosis, right carotid stenosis, strokelike symptom she's has another expressive aphasia episode that last 30-60 minutes, 50 minutes of critical care time provided occured when she standing up and sitting in chair we provided 250cc of IV fluid and fludrocortisone she's is now agreeable for evaluate by [facility]. noted she's received brilinta he's was accepted by [facility] neuro ICU, attending is Dr. Derian olsen updated multiple times, agreeable for transfer to [place] she's need cardiology and nephrology f/u while at [facility]. discussed about monitor for WBC discussed about need to f/u with cardiology for worsening EF Physical Exam Physical Exam: VITALS: Reviewed. WEIGHT/BMI reviewed. GEN: Healthy appearing, well-developed, NAD. Neuro: AAox3; slurred speech (resolve after 30 minutes) facial droop; following command; normal finger to nose -Head: NC/AT; -Eyes: PERRL, EOMI. No discharge or redn ess; NECK: Supple, with no masses. CV: RRR, no m/r/g. LUNGS: CTAB, no w/r/c. ABD: Soft, NT/ND, NBS, no masses or organomegaly. SKIN: Warm, well perfused. No skin rashes or abnormal lesions. MSK: No deformities, Normal gait. EXT: No clubbing, cyanosis, or edema. Results & Data Results & Data Vital Signs (Past 12 Hours) Vital Signs Temp Pulse Pulse Resp BP Pulse Ox O2 Del Method 03/19/25 13:38 96 H 03/19/25 11:47 36.6 C 91 H 18 98/57 L 96 Room Air 03/19/25 09:15 36.4 C L 90 16 03/19/25 07:29 36.4 C L 90 16 100/67 96 Room Air Laboratory Results Laboratory Results - last 72 hr 03/17/25 03/17/25 03/17/25 17:19 17:22 17:50 WBC 11.05 H RBC 4.33 Hgb 14.2 POC Hgb 15.3 Hct 42.0 POC Hct 45 MCV 97.0 MCH 32.8 MCHC 33.8 RDW Std Deviation 49.9 H RDW Coeff of Darrian 14.0 Plt Count 196 MPV 10.8 Immature Gran % (Auto) Neut % (Auto) Lymph % (Auto) Adams % (Auto) Eos % (Auto) Baso % (Auto) Neut # (Auto) Lymph # (Auto) Adams # (Auto) Eos # (Auto) Baso # (Auto) Immature Gran # (Auto) PT 10.9 INR 1.0 APTT 26 PTT Ratio 1.0 Plt Func Collagen/Epi POC Sodium 129 L Sodium 128 L POC Potassium 4.2 Potassium 4.2 POC Chloride 90 L Chloride 88 L Carbon Dioxide 26 POC Total CO2 25 Anion Gap 14 H POC Anion Gap 19.0 POC BUN 40 H BUN 42 H Creatinine 9.33 H* POC Creatinine 9.7 H* Est Cr Clr Drug Dosing 7.5 eGFR 4.18 BUN/Creatinine Ratio 4.5 L Glucose 184 H POC Glucose 185 H POC Glucose (other) 173 H Estimat Average Glucose Hemoglobin A1c Calcium 9.5 POC Ioniz Calcium Mauro 1.07 L Magnesium 2.4 Total Bilirubin 0.5 AST 14 ALT 19 Alkaline Phosphatase 108 H Total Protein 7.1 Albumin 3.7 Globulin 3.4 Albumin/Globulin Ratio 1.1 Triglycerides Cholesterol LDL Cholesterol, Calc VLDL Cholesterol, Calc HDL Cholesterol Cholesterol/HDL Ratio Nasal Screen MRSA (PCR) Hep Bs Antigen Hep Bs Antibody Hep Bs Antibody, Quant 03/17/25 03/17/25 03/17/25 21:15 22:48 23:01 WBC RBC Hgb POC Hgb Hct POC Hct MCV MCH MCHC RDW Std Deviation RDW Coeff of Darrian Plt Count MPV Immature Gran % (Auto) Neut % (Auto) Lymph % (Auto) Adams % (Auto) Eos % (Auto) Baso % (Auto) Neut # (Auto) Lymph # (Auto) Adams # (Auto) Eos # (Auto) Baso # (Auto) Immature Gran # (Auto) PT INR APTT PTT Ratio Plt Func Collagen/Epi 94 POC Sodium Sodium 129 L POC Potassium Potassium 4.0 POC Chloride Chloride 93 L Carbon Dioxide 25 POC Total CO2 Anion Gap 11 POC Anion Gap POC BUN BUN 44 H Creatinine 9.48 H* POC Creatinine Est Cr Clr Drug Dosing 7.4 eGFR 4.10 BUN/Creatinine Ratio 4.6 L Glucose 103 H POC Glucose 117 H POC Glucose (other) Estimat Average Glucose Hemoglobin A1c Calcium 9.3 POC Ioniz Calcium Mauro Magnesium Total Bilirubin AST ALT Alkaline Phosphatase Total Protein Albumin Globulin Albumin/Globulin Ratio Triglycerides Cholesterol LDL Cholesterol, Calc VLDL Cholesterol, Calc HDL Cholesterol Cholesterol/HDL Ratio Nasal Screen MRSA (PCR) Negative Hep Bs Antigen Hep Bs Antibody Hep Bs Antibody, Quant 03/18/25 03/18/25 03/18/25 05:50 07:55 11:21 WBC 10.96 H RBC 3.98 L Hgb 12.9 POC Hgb Hct 38.6 POC Hct MCV 97.0 MCH 32.4 MCHC 33.4 RDW Std Deviation 49.9 H RDW Coeff of Darrian 14.3 Plt Count 179 MPV 11.0 Immature Gran % (Auto) 2.2 Neut % (Auto) 69.2 Lymph % (Auto) 15.2 Adams % (Auto) 9.6 Eos % (Auto) 2.5 Baso % (Auto) 1.3 Neut # (Auto) 7.59 H Lymph # (Auto) 1.67 Adams # (Auto) 1.05 H Eos # (Auto) 0.27 Baso # (Auto) 0.14 Immature Gran # (Auto) 0.24 H PT INR APTT PTT Ratio Plt Func Collagen/Epi POC Sodium Sodium 129 L POC Potassium Potassium 3.6 POC Chloride Chloride 96 L Carbon Dioxide 20 L POC Total CO2 Anion Gap 13 H POC Anion Gap POC BUN BUN 45 H Creatinine 9.14 H* D POC Creatinine Est Cr Clr Drug Dosing 7.8 eGFR 4.29 BUN/Creatinine Ratio 4.9 L Glucose 89 POC Glucose 82 133 H POC Glucose (other) Estimat Average Glucose 206 Hemoglobin A1c 8.8 H Calcium 8.6 POC Ioniz Calcium Mauro Magnesium Total Bilirubin AST ALT Alkaline Phosphatase Total Protein Albumin Globulin Albumin/Globulin Ratio Triglycerides 98 Cholesterol 117 LDL Cholesterol, Calc 51 VLDL Cholesterol, Calc 20 HDL Cholesterol 46 Cholesterol/HDL Ratio 2.5 Nasal Screen MRSA (PCR) Hep Bs Antigen Hep Bs Antibody Hep Bs Antibody, Quant 03/18/25 03/18/25 03/18/25 16:24 19:56 Unknown WBC RBC Hgb POC Hgb Hct POC Hct MCV MCH MCHC RDW Std Deviation RDW Coeff of Darrian Plt Count MPV Immature Gran % (Auto) Neut % (Auto) Lymph % (Auto) Adams % (Auto) Eos % (Auto) Baso % (Auto) Neut # (Auto) Lymph # (Auto) Adams # (Auto) Eos # (Auto) Baso # (Auto) Immature Gran # (Auto) PT INR APTT PTT Ratio Plt Func Collagen/Epi POC Sodium Sodium POC Potassium Potassium POC Chloride Chloride Carbon Dioxide POC Total CO2 Anion Gap POC Anion Gap POC BUN BUN Creatinine POC Creatinine Est Cr Clr Drug Dosing eGFR BUN/Creatinine Ratio Glucose POC Glucose 100 H 170 H POC Glucose (other) Estimat Average Glucose Hemoglobin A1c Calcium POC Ioniz Calcium Mauro Magnesium Total Bilirubin AST ALT Alkaline Phosphatase Total Protein Albumin Globulin Albumin/Globulin Ratio Triglycerides Cholesterol LDL Cholesterol, Calc VLDL Cholesterol, Calc HDL Cholesterol Cholesterol/HDL Ratio Nasal Screen MRSA (PCR) Hep Bs Antigen Negative Hep Bs Antibody Non-Immune Hep Bs Antibody, Quant < 3.00 03/19/25 03/19/25 03/19/25 05:43 07:28 11:44 WBC 12.21 H RBC 4.21 Hgb 13.9 POC Hgb Hct 40.3 POC Hct MCV 95.7 MCH 33.0 MCHC 34.5 RDW Std Deviation 49.7 H RDW Coeff of Darrian 14.3 Plt Count 196 MPV 11.2 Immature Gran % (Auto) 2.1 Neut % (Auto) 70.7 Lymph % (Auto) 14.1 Adams % (Auto) 8.8 Eos % (Auto) 2.9 Baso % (Auto) 1.4 Neut # (Auto) 8.64 H Lymph # (Auto) 1.72 Adams # (Auto) 1.07 H Eos # (Auto) 0.35 Baso # (Auto) 0.17 Immature Gran # (Auto) 0.26 H PT INR APTT PTT Ratio Plt Func Collagen/Epi POC Sodium Sodium 131 L POC Potassium Potassium 4.0 POC Chloride Chloride 94 L Carbon Dioxide 22 POC Total CO2 Anion Gap 15 H POC Anion Gap POC BUN BUN 42 H Creatinine 9.09 H* POC Creatinine Est Cr Clr Drug Dosing 7.8 eGFR 4.31 BUN/Creatinine Ratio 4.6 L Glucose 160 H POC Glucose 147 H 153 H POC Glucose (other) Estimat Average Glucose Hemoglobin A1c Calcium 8.7 POC Ioniz Calcium Mauro Magnesium Total Bilirubin AST ALT Alkaline Phosphatase Total Protein Albumin Globulin Albumin/Globulin Ratio Triglycerides Cholesterol LDL Cholesterol, Calc VLDL Cholesterol, Calc HDL Cholesterol Cholesterol/HDL Ratio Nasal Screen MRSA (PCR) Hep Bs Antigen Hep Bs Antibody Hep Bs Antibody, Quant PG Care Time/CCT Total # of Minutes Spent Total Time Spent with Patient: Total time spent is greater than 50% in coordination of care (as documented) at patient's floor/unit and/or counseling patient: Coding Level of Care Code 80172 SUB INP/OBS CARE 3/50MIN Diagnoses Stroke-like symptom R29.90 New onset a-fib I48.91 Hyponatremia E87.1 Time Spent (min) 50
--- NOTE | 2025-03-19 15:27 | Nephrology Progress Note ---
Date of Service March 19, 2025 Assessment & Plan (1) ESRD (end stage renal disease): Plan: ESRD on PD in an anuric patient with fairly high dose /aggressive prescription as OP now w/ new systolic HF -for tonight will do 2.8L fills x 7 w/ 90 min dwells; all 1.5%. Can use 2.5% once her stenosed neck vessels are treated. -daily BMP -hgb is adequate (2) [facility]olic [facility]: [facility] w/ h/o complex coronary disease w/ new onset systolic HF; Will optimize volume status with PD (3) Stroke-like symptoms: Plan: Will likely need intervention on her stenosed neck vessels. [place] [facility] [place] neuro wants target SBP initially 140s-150s >on midodrine Discussed case with Dr. Devi who agrees with transfer to [facility] Admission and Anticipated Discharge Date Admission Date: March 17, 2025 Subjective Seen for ESRD on PD complicated by bilateral carotid stenosis, vertebral artery stenosis, right carotid stenosis, strokelike symptoms. She feels better now but gets episodes of aphasia/slurred speech on standing at bedside Review of Systems 2 Review of Systems: All other systems were reviewed and negative except as noted in HPI Physical Exam 2 Physical Exam: General exam: Appears comfortable, no acute distress HEENT: Pupils are equal and reactive to light Neck: No JVD, neck is supple trachea is midline Respiratory system: Clear breath sounds bilaterally. Gastrointestinal: Abdomen is soft, non distended, non tender, bowel sounds are present CVS: Regular rate and rhythm. No murmurs, rubs or gallops Musculoskeletal: No joint or muscle tenderness Extremities: Non tender, no edema, peripheral pulses are present Neuro: Oriented, no tremors, no focal neurological deficits Skin: No rashes Results & Data Vital Signs (Past 12 Hours) Vital Signs Temp Pulse Pulse Resp BP Pulse Ox O2 Del Method 03/19/25 15:08 36.6 C 87 18 127/84 95 Room Air 03/19/25 13:38 96 H 03/19/25 11:47 36.6 C 91 H 18 98/57 L 96 Room Air 03/19/25 09:15 36.4 C L 90 16 03/19/25 07:29 36.4 C L 90 16 100/67 96 Room Air Laboratory Results 03/19/25 05:43 03/19/25 05:43 WBC 12.21 H RBC 4.21 MCV 95.7 MCH 33.0 MCHC 34.5 RDW Std Deviation 49.7 H RDW Coeff of Darrian 14.3 Plt Count 196 MPV 11.2
--- NOTE | 2025-03-19 16:09 | Cardiology Progress Note ---
Date of Service March 19, 2025 Assessment & Plan (1) Stroke-like symptoms: (2) Hypotension: (3) Vertebral artery stenosis: (4) Carotid stenosis, right: (5) Chronic heart failure with reduced ejection fraction and diastolic dysfunction: (6) Coronary artery disease: (7) ESRD (end stage renal disease): Plan Complex 69 year old female admitted to [facility] yesterday with stroke like symptoms with slurred speech and facial droop. Head CT negative for acute infarct. Brain MRI negative. She was found to have significant carotid and vertebral artery stenosis. Vascular surgery consulted. Neuro/stroke alert also consulted. Plavix changed to Brilinta with loading dose. Asa 81 mg daily added along with high intensity statin (atorvastatin 80 mg). Patient reports prior myalgias with this and may ultimately need alternative statin vs PCSK9 inhib. She has had recurrent episodes over the last 24 hours, typically exacerbated by standing or sitting upright and possible hypotension/hypoperfusion. Midodrine added at 10 mg TID. (It is unclear whether patient was taking this as outpatient at a lower dose) Due to recurrent symptoms around lunch time yesterday, patient had been ordered repeat brain MRI and to be followed by neurology. Initially thought to have new onset atrial fibrillation on admission, this has been reviewed and found to be NSR with atrial and ventricular ectopy. No atrial fibrillation noted. NO indication for anticoagulation therapy. Plan 03/19/25: -Patient remains asymptomatic and euvolemic. -No A-fib found on telemetry. Again, no indication for AC therapy -Severely reduced EF which had been improving prior to patient stopping her cardiac medications. -She was found to have severely reduced LVEF on admission as well. It is possible her decline in LV function is due to medication discontinuation vs stress induced cardiomyopathy. -If able, would recommend resuming low dose metoprolol succinate 12.5 mg daily if BP tolerates. -PD treatments as per current regimen Case has been discussed with Dr. Casey. Further recommendations regarding plan of care as per her assessment. I spent a total of 30 minutes on the date of service in preparation, delivery, documentation of the care provided to the patient excluding any time spent in the performance of separately billed services. JEAN PAUL Waldron [facility] Cardiology [facility] Admission and Anticipated Discharge Date Admission Date: March 17, 2025 Supervising Physician Co-Signing Physician Notes I have reviewed the advanced practitioner's documentation on the date of service referenced in note, and I agree with, and take responsibility for the plan of care. I spent a total of 15 minutes coordinating, documenting, and providing care for this patient excluding time spent in the performance of separately billed services or time spent by another provider. Admitted with episodes of strokelike symptoms with bilateral vertebral artery stenosis and carotid artery stenosis being transferred to [place] for further evaluation for possible intervention Cardiomyopathy with severely reduced EF uptitrating of optimal medical therapy limited with blood pressure Subjective 03/19/2025: Patient seen and examined in follow up today. Feeling well from a cardiac perspective. offers no acute complaints. would love to go home. Labs, vitals, diagnostics, telemetry and documentation reviewed. Telemetry reviewed showing SR with 1st degree AVB and PAC's. No acute events overnight. Review of Systems Review of Systems: All systems reviewed & are unremarkable except as noted in HPI & below Physical Exam Constitutional: well developed and well nourished; no acute distress and not ill appearing Neck: normal visual inspection and trachea midline Respiratory: normal respiratory effort, lungs clear to auscultation Cardiovascular: RRR, no murmur, no edema Heart Sounds: no murmur Vessels: dorsalis pedis pulses present; no JVD Extremities: no edema Skin: no rashes, warm and dry Psychiatric: A+Ox3, euthymic affect Results & Data Vital Signs (Past 12 Hours) Vital Signs Temp Pulse Pulse Resp BP Pulse Ox O2 Del Method 03/19/25 15:08 36.6 C 87 18 127/84 95 Room Air 03/19/25 15:04 36.6 C 87 21 127/84 95 Room Air 03/19/25 13:38 96 H 03/19/25 12:57 36.6 C 100 H 20 99/61 L 97 Room Air 03/19/25 11:47 36.6 C 91 H 18 98/57 L 96 Room Air 03/19/25 09:15 36.4 C L 90 16 03/19/25 07:29 36.4 C L 90 16 100/67 96 Room Air Laboratory Results CBC 03/19/25 Range/Units 05:43 WBC 12.21 H (4.8-10.8) K/ul RBC 4.21 (4.20-5.40) M/uL Hgb 13.9 (12.0-16.0) g/dl Hct 40.3 (37.0-47.0) % Plt Count 196 (130-400) K/uL Neut # (Auto) 8.64 H (1.40-6.50) K/uL Lymph # (Auto) 1.72 (1.20-3.40) K/uL Addison # (Auto) 1.07 H (0.11-0.59) K/uL Eos # (Auto) 0.35 (0.00-0.50) K/uL Baso # (Auto) 0.17 (0.00-0.20) K/uL Comprehensive Metabolic Panel 03/19/25 Range/Units 05:43 Sodium 131 L (136-145) mmol/L Potassium 4.0 (3.5-5.1) mmol/L Chloride 94 L (98-107) mmol/L Carbon Dioxide 22 (21-32) mmol/L BUN 42 H (6-23) mg/dl Creatinine 9.09 H* (0.6-1.2) mg/dl Glucose 160 H (70-99(Fasting)) mg/dl Calcium 8.7 (8.6-10.3) mg/dl Intake and Output 03/19/25 03/19/25 03/19/25 06:59 14:59 22:59 Intake Total 216.667 / 216.667 Balance 216.667 / 216.667 Intake: IV 216.667 / 216.667 Sodium Chloride 0.9% 250 ml @ 216.667 / 216.667 125 mls/hr IV .Q2H [facility] Rx#: [id number] Other: Weight 120.4 kg 120.4 kg 120.4 kg Weight Measurement Method Built in [facility] Built in [facility] Patient Weight 03/20/25 06:59 Weight 120.4 kg PG Care Time/CCT Total # of Minutes Spent Total Time Spent with Patient: Total time spent is greater than 50% in coordination of care (as documented) at patient's floor/unit and/or counseling patient: Coding Level of Care Code 36403 SUB INP/OBS CARE 3/50MIN Diagnoses Stroke-like symptoms R29.90 Hypotension I95.9 Vertebral artery stenosis I65.09 Carotid stenosis, right I65.21 Chronic heart failure with reduced ejection fraction and diastolic dysfunction I50.42 Coronary artery disease involving [place] coronary artery of [place] heart without angina pectoris I25.10 Associated angina: without angina Coronary Disease-Associated Artery/Lesion type: [place] artery [place] vs. transplanted heart: [place] heart ESRD (end stage renal disease) N18.6 (6) Coronary artery disease Associated angina: without angina Coronary Disease-Associated Artery/Lesion type: [place] artery [place] vs. transplanted heart: [place] heart Qualified Code(s): I25.10 - Atherosclerotic heart disease of [place] coronary artery without angina pectoris
[2025-03-19] MEDS ORDERED: STROKE PATIENT DISCHARGE STA (16:15)
[2025-03-19 16:39] VITALS: BP 121/77; PULSE 90; RESP 17; O2SAT 96
--- NOTE | 2025-03-19 17:23 | Discharge Summary ---
Discharge Summary Date of Service March 19, 2025 Principal Dx & Hospital Course #1 = Principal Diagnosis (1) Stroke-like symptom: recurrent TIA Debbie Salgado a 69 yo woman with PMH Of ERSD on peritoneal dialysis, CAD s/p stent (mar 2023), type 2 diabetes, hypertension. on 03/17/2025, she was having slurred speech (LKW) 11am and was noticing right side facial droop and slurred speech on 12:40noon (03/17) that resolved but then at 2:15pm family noticed a 2nd episode and brought to [facility] ED for evaluation her brain MRI is negative; but found vertebral artery stenosis and b/l carotid stenosis she's has another slurred speech episode inpatient at 10am (03/18/2025) when she's go from sitting to standing during PT session she was seen by neurology and recommended switching from plavix to brilinta and adding aspirin neurology suspect hypoperfusion and noted the additional carotid and vertebral stenosis cannot be addressed at [facility] patient was recommended transferring to [facility] for eval for carotid and vertebral artery stenting patient initially declined on 03/18 however, on 03/19/2025 afternoon,she again has 30-45 minutes of expressiive aphasia, right side facial droop she's s/p IV fluid 250cc and then added fludrocortisone to midodrine TID regime. for her stroke work up, her echo found EF of 20-25%, severe global hypokinesis of left ventricle. spoke with field service specialist, given her acute stroke and hypoperfusion, deferring introducing new cardiac med. patient evaluated by neurology and neuro ICU at [facility] ([place]) she was accepted by neuro ICU attending Dr. Dunham and she will be evaluated by neurointerventional at [facility] the decision is to hold her 03/19/2025 evening dose of brilinta until she can be evaluated by neurology at [facility] she's did has worsening WBC from 10--12 from no infectious symptoms I spoke with nephrology at [facility] and there is no concern for peritonitis communicated with neurology; cardiology; nephrology reviewed lab, reviewed imaging, communicated with (2) New onset a-fib: (3) Hyponatremia: Plan This is a 69 y/o F PMHx ESRD on PD, CAD s/p stent placement x5 in 2022 (w/ Serge) HTN, HLD, and T2DM who presented to the ED on 03/17 with waxing and waning right-sided facial droop, dysarthria, and RUE weakness. History was taken by patient and her . Last known well 11am on 03/17 before leaving the house to run errands. Arrived home around 12:40pm and noticed patient with right-sided facial droop and slurred speech. States this episodes resolved, however another one started around 2:15pm. He is unsure of how long these symptoms last for when they first onset, however seemed long in duration which prompted visit to ED. her CTA found b/l carotid stenosis, vertebral artery stenosis, brain MRI is negative. telemetry also found question of A-fib NO hx of previous stroke, however does have significant cardiac history for 5x stent placement in 2022 with Serge and for which she is on Plavix. Denies any headache, dizziness, N/V, chest pain, SOB during these episodes. States that she has never had these or similar symptoms before in the past. On arrival to ED, patient was initially without symptoms however has had about 5-6 repeat episodes since arrival. ED labs showing CBC nonactionable. BMP with hyponatremia Na 12 EKG showing new-onset a.fib with rate initially in 110s. CXR without acute disease. C Patient is being admitted for waxing/waning stroke-like symptoms in the setting of BL carotid and vertebral artery stenosis found on CTA head/neck and new-onset a. fib. #stroke-like symptoms/TIA vs ischemic stroke on 03/18 9:30am, has another episode of slurred speech, the 2nd brain MRI also negative for stroke since 03/17 11am, has waxing and waning stroke-like symptoms of right-sided facial droop and slurred speech. on 03/19/2025, another expressive episode with sitting and staning accepted by [facility] neuroICU noted she's received brilinta on 03/19/2025 morning she's was loaded with brilinta; hold Friday evening dose of Brilinta. aspirin and statin. avoid hypotension patient has had about 5-6 repeat episodes. During my exam patient was with symptoms that seemed to begin to resolve after about 15 minutes. - CTA head/neck showing severe bilateral carotid artery stenoses and vertebral artery stenosis -seen by [facility] neurology involved our on site neurology - MRI brain - ASA 324 mg (can continue with ASA 81 mg po starting in AM) ; switched home plavix to Brilinta - ordered Brilinta 180 mg loading dose to be given now, 80mg maintenance dose to start 12hr from loading dose - atorvastatin 80mg po daily - goal BP 140-160/80 - - given IV fluids normal saline bolus x1 and will continue with maintenance fluids normal saline 100 ml/hr - vascular surgery consulted given patient's CTA findingsng - neuro checks q4h - keep HOB flat - - PT/OT evaluation - SHOP TEACHER evaluation, dysphagia screening and aspiration precautions in place new onset CHF her prior EF was 50-55% her current EF is less than 25% given her tendency for hypotension, limiting Goal directed medical therapy the finding of worsening EF been discussed with on 03/19 #new-onset a. fib - EKG on arrival to ED showing atrial fibrillation with rate 110s - started metoprolol 12.5mg po daily for rate control echo found worsening EF below 25%. brain MRI is negative. - continue telemetry monitoring #hyponatremia - Na 129 on admission ; unclear of etiology at this time - IV fluid normal saline bolus x1 - urine osm, urine sodium, and serum osm ordered #ESRD on PD - on peritoneal dialysis outpatient (since 6 months ago) been on HD for 2 years prior to that. - nephrology consulted - electrolytes were stable on admission labs ; ionized calcium was low at 1.07, replaced with calcium gluconate 1g. - previously on midodrine, however was discontinued due to patient inability to tolerate #T2DM - on insulin and Trulicity at home ; hold Trulicity - repeat A1c ordered - SSI ordered - ACHS checks q4 #hypothyroidism- levothyroxine 75mcg po daily DVT - SCDs, hold chemical prophylaxis to avoid hemorrhagic conversion if ischemic stroke present Dispo - PCU. Admission HPI Per Admitting Provider Debbie Estrada is a 69 y/o F PMHx ESRD on PD, CAD s/p stent placement x5 in 2022 (w/ Geroz) HTN, HLD, and T2DM who presented to the ED with waxing and waning right-sided facial droop, dysarthria, and RUE weakness. History was taken by patient and her . states he last saw patient well around 11am this morning before leaving the house to run errands. Arrived home around 12:40pm and noticed patient with right-sided facial droop and slurred speech. States this episodes resolved, however another one started around 2:15pm. He is unsure of how long these symptoms last for when they first onset, however seemed long in duration which prompted visit to ED. Patient does not have history of previous stroke, however does have significant cardiac history for 5x stent placement in 2022 with Serge and for which she is on Plavix. Denies any headache, dizziness, N/V, chest pain, SOB during these episodes. States that she has never had these or similar symptoms before in the past. Denies tobacco, alcohol, and recreational drug use. Lives at home with her and states she is wheelchair dependent, however is able to perform ADLs relatively independently. States most recent fall at home with in January 2025 which resulted in 3 day hospital admission in [place], [place]. On arrival to ED, patient was initially without symptoms however has had about 5-6 repeat episodes since arrival. ED labs showing CBC nonactionable. BMP with hyponatremia Na 129. Anion gap 14. Other electrolytes stable. EKG showing new-onset a.fib with rate initially in 110s. CXR without acute disease. CTA head/neck showing severe bilateral carotid artery stenoses, and vertebral artery stenosis. During my evaluation, patient was having repeat episode of right-sided facial droop and slurred speech, which seemed to begin to resolve in around 15 minutes. Patient is being admitted for waxing/waning stroke-like symptoms in the setting of BL carotid and vertebral artery stenosis found on CTA head/neck and new-onset a. fib. Discharge Exam VITALS: Reviewed. WEIGHT/BMI reviewed. GEN: Healthy appearing, well-developed, NAD. -Head: NC/AT; Neuro: expressive aphasia; facial droop (resolved;) 5/5 strength; AAox3 no tremor; no pronator drift NECK: Supple, with no masses. CV: RRR, no m/r/g. LUNGS: CTAB, no w/r/c. ABD: Soft, NT/ND, NBS, no masses or organomegaly. : N/A SKIN: Warm, well perfused. No skin rashes or abnormal lesions. MSK: No deformities, Normal gait. EXT: No clubbing, cyanosis, or edema. Discharge Plan Discharge Items Patient Disposition: Transfer Acute Care Hospital Reason For Visit: STROKE-LIKE SX Discharge Diagnosis: recurrent TIA (slurred speech) high grade vertebral artery stenosis ESRD on PD orthostatic hypotension worsening CHF (55--> 20%) hx of CAD s/p stent x 5 (in mar 2023) Condition on Discharge: Fair Activity: Per Instructions section Non-emergency contact: Primary Care Provider, Chemical Dependency Therapist and Psychological Assistant Call non-emergency contact if: your symptoms worsen, your pain is unusual for you and you have a fever Follow-up/Referrals: Donald Sinha MD [Primary Care Provider] - Diet: Carb Consistent or DM2 and Dialysis Renal Addtl Attending Provider Instructions: follow up with [facility] neurologist follow up with [facility] 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 machine operator resistance Pending Studies at Discharge: Yes Studies:: SHREDDED FILLER MACHINE WRAPPER LAYER perfusion studies at [facility] Stand-Alone Forms: My [facility] Skilled Items Patient informed of condition?: Yes DNR: No Discharge Level of Care: Other Communicable Disease: No Discharge Prognosis: Other Lines: Peripheral IV Urinary Catheter: No Medications and DC Order Prescriptions: New atorvastatin 40 mg Tablet 80 mg PO QAM 30 Days Qty: 60 0RF aspirin 81 mg Tablet,Delayed Release (Dr/Ec) 81 mg PO QAM 30 Days Qty: 30 0RF midodrine 10 mg Tablet 10 mg PO TID@0800,1200,1700 30 Days Qty: 90 0RF Continued (DME) blood-glucose meter [OneTouch Verio Flex meter] Misc See Rx Instructions .Route Qty: 1 0RF Rx Instructions: As directed-check 3 times daily (DME) pen needle, diabetic [1st Tier Unifine Pentips Plus] 31 gauge x 1/4" needle See Rx Instructions .Route Qty: 100 3RF Rx Instructions: As directed Insulin 2x/day Dx E11.9 insulin glargine [Lantus Solostar U-100 Insulin] 100 unit/mL (3 mL) insulin pen 30 unit subcut BID Qty: 15 3RF (DME) OneTouch Verio test strips Strip See Dose Instructions .ROUTE .MEDSUPPLY Qty: 300 1RF Dose Instruction: As directed Rx Instructions: As directed 3 times a day dx: E11.9 (DME) blood glucose control, normal [OneTouch Verio Mid Control] Solution See Rx Instructions .Route Qty: 1 0RF Rx Instructions: As directed Radha-Heriberto 0.8 mg tablet 1 tab PO QAM polyethylene glycol 3350 [Miralax] 17 gram/dose powder 17 g PO DAILY PRN (Reason: constipation) Qty: 238 3RF cholecalciferol (vitamin D3) 1,250 mcg (50,000 unit) capsule 50,000 unit PO MONTHLY ondansetron HCl 4 mg tablet 4 mg PO Q6H PRN (Reason: Nausea And Vomiting) levothyroxine 25 mcg tablet 25 mcg PO DAILYBB docusate sodium 100 mg capsule 100 mg PO DAILY PRN (Reason: Constipation) Rx Instructions: Take 100 mg (1 capsule) orally twice a day As Needed for constipation clotrimazole 1 % cream 1 applic topical BID PRN (Reason: flare) Trulicity 0.75 mg/0.5 mL pen injector 0.75 mg subcut WK Rx Instructions: Friday zinc oxide 16-40 % ointment 1 ea topical TID PRN (Reason: Flare) Held clopidogrel 75 mg tablet 75 mg PO QAM Hold Instructions: Resume on 03/28/25. Discharge Orders: Discharge Order (Routine); Ordered 03/19/25 Ordered By: Gayle Andres/Other Patient Handouts: Managing Type 2 Diabetes Admission Data Admit Date/Time: 03/17/25 19:54 Attending Provider: Gayle Devi Admit Provider: Kinsey Velázquez Primary Care Provider: Donald Sinha Other Providers: Shon Hollingsworth; Pino Ng; Ulises Guadarrama; Anthony Pappas; Gil Christiansen Hospital Stay Data Consultations 03/17/25 18:32 ED Decision to Admit Stat 03/17/25 21:57 Consult Vascular Surgery Routine 03/18/25 01:38 Consult Neurology Routine 03/18/25 10:43 Consult Cardiology Routine 03/18/25 12:13 Consult Neurology Routine Diagnostic Imagining Performed 03/17/25 16:57 CT head/brain wo con Stat 03/17/25 16:58 CTA head w con [CT angio head w con] Stat CTA neck with con [CT angio neck with con] Stat 03/18/25 00:40 MR brain wo con Routine 03/18/25 13:02 MRI Brain [MR brain wo con] Urgent Pending Results Patient Have Any Pending Studies at Discharge: Yes Discharge Instructions Given to Patient (Per Discharging Provider) follow up with [facility] neurologist follow up with [facility] 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
--- NOTE | 2025-03-21 06:51 | Coding Query ---
CODING QUERY To promote full compliance with coding requirements relating to patient care, provider participation is requested in all cases of social services director uncertainty. Please assist us with the question(s) below: Coding Question(s): The Discharge Summary documents, "recurrent TIA", but there is also documentation on the Discharge Summary of acute stroke as in the following documentation, "for her stroke work up, her echo found EF of 20-25%, severe global hypokinesis of left ventricle. spoke with pharmacy retail support specialist, given her acute stroke and hypoperfusion, deferring introducing new cardiac med". Please specify below, in your clinical opinion, regarding recurrent TIA and acute stroke during this admission: (x) Recurrent TIA, with Acute Stroke being Ruled-Out ( ) Possible Acute Stroke, Present on Admission ( ) Recurrent TIA on admission, with Possible Acute Stroke that occurred after admission ( ) Other: Please Specify Physician's Response(s): Thank you Charlee Sanchez Principal Diagnosis: "that condition established after study, to be chiefly responsible for occasioning the admission of the patient to the hospital for care." Co-Existing Principal Diagnosis: "when two or more diagnoses equally meet the criteria for principal diagnosis as determined by the circumstances of admission, diagnostic work up, and/or therapy provided, and the Alphabetic Index, Tabular List, or another coding guideline does not provide sequencing direction, any one of the diagnoses may be sequenced first." "When the physician has documented what appears to be a current diagnosis in the body of the record, but has not included the diagnosis in the final diagnostic statement, the physician should be asked whether the diagnosis should be added." (Source Coding Clinic 2 QTR90. p3-4) DOROTHY
== END 2025-03-19 17:50 | disposition short-term general hospital (02) | DRG 67 ==
LOC: ED 16:49 → SUATTDRO 19:54 → 2S 19:54